=== PATIENT | female | born 1970 | race African-American/Black ===

== ENCOUNTER 2016-02-20 22:39 | Inpatient (IN) | payer BC, OTHER ==
[~2016-02-20] VITALS: Ht 162.6 cm; Wt 111.4 kg
--- NOTE | ~2016-02-20 | HC ---
[facility] [place] [address] CONSULTATION Name: KAR LOWRY Room #: 248-P [facility] IN M.R.#: [id number] Admission: 02/21/16 Attend Phys: Jaimee Morris Discharge: Date of : 66 Report #: [id number] THIS REPORT FOR: //name// CC: Jaimee Camejo REASON FOR CONSULTATION: I was asked to evaluate concerning bilateral pulmonary infiltrates and respiratory failure. HISTORY OF PRESENT ILLNESS: The patient is a 45-year-old who was initially evaluated in the end of November where she had respiratory compromise, shortness of breath for about 6 months. Her oxygen requirements had increased. She has persistent nonproductive cough. Cough seemed to worsen when she was in [place] for vacation. She continues on Prograf and Myfortic for her renal transplant. She has had no rejection episodes. She has been on corticosteroids. During the evaluation in the end of November, she underwent CT scan of the chest, bronchoscopy with BAL and serologic workup, all of which was nondiagnostic. I am unclear as to her followup. She did return on February 14 and was hospitalized here for 2 days. She had more shortness of breath and a productive cough that she stated onset about 4 days prior to her admission. At that time, she is on prednisone 10 mg a day along with her Myfortic and Prograf. She was dismissed on cefuroxime and 5 mg of prednisone a day. She was dismissed on February 16, but did not fill her prescription and returns with persistent shortness of breath. She was supposed to be on 10 mg of prednisone and Levaquin. Once seen in the Emergency Room, she was given IV steroids, Levaquin, Lasix and was intubated. ALLERGIES: None known. MEDICATIONS: As noted on her MAR including Solu-Medrol, levofloxacin, Zosyn and vancomycin. PAST MEDICAL HISTORY, FAMILY HISTORY AND SOCIAL HISTORY: Unchanged from her previous consultation noting that in 2009 she was diagnosed with parainfluenza pneumonia. The bronchoscopy performed on November hospitalization was nondiagnostic. No biopsy was performed. REVIEW OF SYSTEMS: There has been no nausea, vomiting, diarrhea, dysuria or frequency. Now has an indwelling Sheth catheter. She is sedated on the ventilator. PHYSICAL EXAMINATION: VITAL SIGNS: Afebrile and hemodynamically stable. GENERAL: She is on propofol. IV site unremarkable. She is on FIO2 of 50%, orally intubated, obese, no rash. LUNGS: Coarse bilaterally. HEART: Regular without murmur. [address] [address] CONSULTATION Name: KAR LOWRY Room #: 248-P [facility] IN ..#: [id number] Admission: 02/21/16 Attend Phys: Jaimee Morris Discharge: Date of : 66 Report #: [id number] ABDOMEN: Obese, soft and nontender. EXTREMITIES: Unremarkable. LABORATORY STUDIES: Sodium 147, potassium 3.8, bicarbonate of 42, creatinine 0.9, glucose 268, AST 12, bilirubin 1, alkaline phosphatase 61, ALT 25, albumin at 2.9. BNP 1809. ____, hemoglobin 9.6, platelet count 163,000. Differential on admission, 89% segs, 1% band, 4% lymphs. Blood and sputum cultures are pending. Chest x-ray shows bilateral pulmonary infiltrates, both interstitial and alveolar. Bilateral effusions also noted. Ultrasound of the lower extremities negative for DVT. IMPRESSION: A 45-year-old immunosuppressed on 3 drugs with prednisone, Myfortic, Prograf. She has bilateral pulmonary infiltrates, which have not improved following my initial workup in November. It is also noted that she had pulmonary hypertension on her last echocardiogram. I have discussed the case with cardiology, pulmonary medicine and nursing. PLAN: Recommend continuing antibiotic coverage. Repeat bronchoscopy and CT scan of the chest. If no diagnosis established, would pursue open lung biopsy. I would also consider Raleigh-Marlee catheter to further assess her pressures. <ELECTRONICALLY SIGNED> By: Devin Gonzales MD 02/22/16 1234 1114 1207 Devin Gonzales MD /nt
--- NOTE | ~2016-02-20 | HC ---
[facility] [place] [address] CONSULTATION Name: KAR LOWRY Room #: 248-P [facility] IN ..#: [id number] Admission: 02/21/16 Attend Phys: Jaimee Morris Discharge: Date of : 66 Report #: [id number] THIS REPORT FOR: //name// CC: Jaimee Camejo DATE OF SERVICE: 02/21/2016. INDICATION: Shortness of breath. HISTORY OF PRESENT ILLNESS: This is a 45-year-old female presenting with shortness of breath. She was recently hospitalized for similar symptoms. The patient has a history of chronic obstructive pulmonary disease, on chronic oxygen therapy, diabetes mellitus, hypertension and right-sided heart failure. She is normally on 4 liters of oxygen at home. Her previous hospitalizations, she has improved with diuresis. It is unclear why she was not taking Lasix at home. No further history is able to be obtained. PAST MEDICAL HISTORY: Echocardiogram from November reveals hyperdynamic LV systolic function, LVH and pulmonary hypertension, history of kidney transplant in 2006, on long-term immunosuppression. Pulmonary disease including bronchitis/asthma. Diabetes mellitus, morbid obesity and chronic edema. ALLERGIES: None. MEDICATIONS: At home included aspirin, Prograf mg daily, Coreg 6.25 mg twice a day, losartan 100 mg a night, Myfortic, supposed to be on Lasix 40 mg daily. SOCIAL HISTORY: Negative for tobacco use. FAMILY HISTORY: Unknown. REVIEW OF SYSTEMS: Unobtainable. PHYSICAL EXAMINATION: VITAL SIGNS: Blood pressure is 160/80, heart rate is 75 beats per minute. GENERAL APPEARANCE: Obese female, intubated, dated. HEAD AND EYES: Normocephalic. Sclerae are anicteric. NECK: No JVD. LUNGS: Diminished breath sounds at the bases. CARDIAC: Distant heart sounds, S1, S2 positive. ABDOMEN: Protuberant, soft. EXTREMITIES: No major joint deformities, 2-3+ bilateral lower extremity edema. ECG reveals sinus rhythm, no acute ST segment changes. [facility] [address] [place] [address] CONSULTATION Name: KAR LOWRY Room #: 248-[facility] IN M.R.#: [id number] Admission: 02/21/16 Attend Phys: Alfonzomarci José Miguel Alejandrinarich Discharge: Date of : 66 Report #: [id number] LABORATORY VALUES: White cell count is 12.5, hemoglobin is 9.6. Sodium is 147, BUN is 19, creatinine 0.9. ASSESSMENT: 1. Respiratory failure, the etiology is multifactorial. Rule out an infectious process. 2. Congestive heart failure, probable acute on chronic diastolic. Agree with IV Lasix as long as her blood pressure remains stable. 3. Diabetes mellitus, continue with medications. 4. History of renal transplant on long-term immunosuppression. 5. Chronic edema. Thank you for allowing me to participate in the care of your patient. <ELECTRONICALLY SIGNED> By: Rodolfo Katz MD 02/22/16 0838 1108 1142 Rodolfo Katz MD /brian
--- NOTE | ~2016-02-20 | CNG ---
[facility] [place] [address] CYTO-NONGYN REPORT PROCEDURE Name: JAZMYN FRAZIER Room #: 248-P ADM IN M.R.#: [id number] Admission: 02/21/16 Date of : 66 Discharge: Report #: [id number] Path Case #: [id number] CYTOPATHOLOGY REPORT COLLECTION DATE: 02/21/2016 RECEIVED DATE: 02/22/2016 SUBMITTING PHYS: Dr. Devin Gonzales OTHER PHYS: Dr. Jaimee Camejo CLINICAL HISTORY: Respiratory failure. SPECIMEN(S) RECEIVED: A.Bronchoalveolar lavage, NOS * * * * * * * * * * * * FINAL DIAGNOSIS: A. Bronchoalveolar lavage, NOS: - No malignant cells identified. Numerous pulmonary macrophages and scattered acute and chronic inflammatory cells identified. - Properly controlled silver stain is negative for Pneumocystis organisms and fungal organisms. PATHOLOGIST: Nini Pearson M.D. REPORT ELECTRONICALLY SIGNED BY: Nini Pearson M.D. DATE/TIME: 02/23/2016 15:06 * * * * * * * * * * * * GROSS PATHOLOGY: A. Bronchoalveolar lavage, NOS: The specimen is submitted unfixed, labeled "Jazmyn Frazier". Received by the Cytology Department is four mL of clear fluid. One ThinPrep slide was prepared for pap stain. One ThinPrep slide was prepared for silver stain. (clt 02.22.2016) SALES SERVICE EXECUTIVE(S): PAIGE Dorsey(ASCP) INITIAL CPT CODE(S): A; 09972, 75177 Professional services performed by [facility] at [facility] [address], [place] [address] Technical services performed by [facility] at [address] [place] [address], [address], [place] [address]. [facility] [address] [place] [address] CYTO-NONGYN REPORT PROCEDURE Name: JAZMYN FRAZIER Room #: 248-P ADM IN M.R.#: [id number] Admission: 02/21/16 Date of : 66 Discharge: Report #: [id number] Path Case #: [id number] [facility] [address] [place] [address], [address] [place] [address] PHONE: [phone] DIRECTOR: Morgan Malhotra M.D. * * * END OF REPORT * * *
--- NOTE | ~2016-02-20 | HC ---
[facility] [place] [address] CONSULTATION Name: KAR LOWRY Room #: 455-P [facility] IN M.R.#: [id number] Admission: 02/21/16 Attend Phys: Jaimee Morris Discharge: Date of : 66 Report #: [id number] THIS REPORT FOR: //name// CC: Jaimee Camejo REASON FOR CONSULTATION: Post-kidney transplantation. REASON FOR PRESENTATION: Shortness of breath. HISTORY OF PRESENT ILLNESS: The patient was actually just discharged from the hospital back in December, she is well known to me. She is a 45-year-old with past medical history of COPD followed by the pulmonary team as an outpatient. She is status post kidney transplantation 10 years ago. This was a diabetic kidney transplant and she is maintained on Myfortic and Prograf. She has had multiple presentations with the same picture reporting progressive shortness of breath and dyspnea. She is supposed to use CPAP at home. She is also utilizing oxygen 3 liters. I saw her back in December and all the workup was pretty much remarkable. She diuresed very well and responded very well to diuresis. In the past, she has had an extensive workup including bronchoscopies and VATS procedure for a lung biopsy. This was . She presented to the emergency room complaining of shortness of breath. She also reported neck swelling. It does look like that the patient has some history of noncompliance. She was discharged from the facility back on February. She stated that she forgot to take his scripts and requested the refills of his scripts. It is not clear to me why did she stop taking Lasix upon discharge, even though she was supposed to take it. After she presented to the Emergency Room, her pulmonary status deteriorated and she required intubation in the Emergency Room. I evaluated her in the Intensive Care Unit. She is currently intubated and sedated. PAST MEDICAL HISTORY: 1. Status post renal transplantation. 2. Repeated pneumonitis episodes. 3. Hypertension. 4. Obstructive sleep apnea. 5. Right breast biopsy. 6. Multiple bronchoscopies. 7. Lung biopsy. 8. Diabetes mellitus. 9. Laparoscopic cholecystectomy. 10. Left AV fistula. SOCIAL HISTORY: No drug or alcohol abuse ALLERGIES: No known drug allergies. [address] [address] CONSULTATION Name: KAR LOWRY Room #: 455-P [facility] IN ..#: [id number] Admission: 02/21/16 Attend Phys: Jaimee Morris Discharge: Date of : 66 Report #: [id number] FAMILY HISTORY: Per the chart significant for hypertension and diabetes mellitus. REVIEW OF SYSTEMS: Unobtainable. The patient is currently intubated and there are no family members available. MEDICATIONS: Currently the patient is maintained on metformin, glipizide, prednisone, tacrolimus, carvedilol, losartan, mycophenolate, and aspirin. Lasix was not listed and on her active medications it was listed as discontinued medications. PHYSICAL EXAMINATION: GENERAL: The patient is currently intubated on Propofol. VITAL SIGNS: Blood pressure is marginal at 96/65. HEAD AND NECK: No jugular venous distention. ET tube in place. CHEST: Crackles bilaterally. CARDIOVASCULAR: No rub detected, distant S1 and S2. ABDOMEN: Soft, nontender. LOWER EXTREMITIES: A +2 edema. LABORATORY VALUES: Reviewed. White blood cell count is down to 12.5 from 15.2. Hemoglobin 9.6. ABGs from yesterday reviewed. Her pCO2 from this morning is down to 77 from 82. She did have an acute respiratory failure due to CO2 narcosis. UA was reviewed. Chest x-ray was also reviewed. Her chest x-ray was consistent with bilateral interstitial alveolar infiltrate. This is not different from her previous chest x-rays. DVT was negative. ASSESSMENT, IMPRESSION, PLAN: 1. Acute respiratory failure, recurrent. 2. Chronic bilateral pulmonary infiltrate with previous nonrevealing workup. 3. Status post kidney transplantation. 4. Diabetes mellitus. 5. Hypertension. 6. Obstructive sleep apnea with noncompliance. 7. From the renal perspective, the patient's creatinine was on the normal side as of yesterday. We will recheck the patient's kidney function in the next couple of days. 8. Blood pressure control. 9. Diabetic control. 10. Resume her home medications. 11. Current issues being addressed by the pulmonary team. 12. IV steroids. [address] [address] CONSULTATION Name: ALENKAR Kash Room #: 455-P [facility] IN M.R.#: [id number] Admission: 02/21/16 Attend Phys: Jaimee Morris Discharge: Date of : 66 Report #: [id number] 13. Antibiotics. 14. Increased the dose of the Lasix to twice a day. The patient had previously responded very well to diuresis in the past. I suspect that there is a major noncompliance issues given her CO2 finding on presentation. It does look like that the patient will need diuresis even upon discharge. I am a little concerned about her blood pressure being on the low side and I will ask the nurses to back off the Propofol and hold some of her blood pressure medications if she continues to have low blood pressure issues. As I have stated in the above notes that the patient had extensive workup in the past including a lung biopsy and all of that was unrevealing. <ELECTRONICALLY SIGNED> By: Freddy Duffy MD 03/03/16 0925 0959 1050 Freddy Duffy MD /nt
--- NOTE | ~2016-02-20 | O ---
[facility] [place] [address] OPERATIVE REPORT Name: KAR LOWRY Room #: 248-P [facility] IN M.R.#: [id number] Admission: 02/21/16 Attend Phys: Jaimee Morris Discharge: Date of : 66 Report #: [id number] THIS REPORT FOR: //name// CC: Jaimee Camejo DATE OF SERVICE: 02/24/2016 PREOPERATIVE DIAGNOSIS: Bilateral pulmonary infiltrates. POSTOPERATIVE DIAGNOSIS: Bilateral pulmonary infiltrates. PROCEDURE: Bronchoscopy and left video-assisted thoracoscopy with wedge resection x 2. SURGEON: Sharan Buck M.D. MATERIALS SPECIALIST: Eron. ANESTHESIA: General. INDICATIONS: The patient is a 45-year-old seen for Dr. Way and Dr. Gonzales. The patient is a renal transplant patient who has bilateral pulmonary infiltrates of unclear origin. The patient is on a mechanical ventilator and without a specific diagnosis, focus treatment could not be chosen. FINDINGS AND TECHNIQUE: After general anesthesia was established, a bronchial jumana was placed under bronchoscopic guidance. No endobronchial lesions were noted at this time, although there were some thick secretions and inflammatory changes in the airway. The patient was positioned with left side up. Exposure was obtained through typical video-assisted thoracoscopy ports. Wedge resection was taken of lingular region in the upper lobe and at the basilar segment of the lower lobe and these were submitted for culture and pathology. Pathology came to the room to inspect the specimens. Hemostasis was ascertained. A chest tube was brought through a separate stab wound and then the chest ports were closed in layers while the lowest port was used for placement of the chest tube. The patient tolerated the procedure well [facility] [address] [place] [address] OPERATIVE REPORT Name: KAR LOWRY Kash Room #: 248-P [facility] IN .R.#: [id number] Admission: 02/21/16 Attend Phys: Jaimee Morris Discharge: Date of : 66 Report #: [id number] and was taken back to the intensive care unit in the same condition in which she came to the operating room. <ELECTRONICALLY SIGNED> By: Sharan Buck MD 02/27/16 1024 1040 1102 Sharan Buck MD /nt
--- NOTE | ~2016-02-20 | S ---
[facility] [place] [address] SURGICAL PATH RPT PROCEDURE Name: JAZMYN FRAZIER Room #: 455-P [facility] IN M.R.#: [id number] Admission: 02/21/16 Date of : 66 Discharge: 03/07/16 Report #: [id number] Path Case #: [id number] PATHOLOGY REPORT COLLECTION DATE: 02/24/2016 RECEIVED DATE: 02/24/2016 SUBMITTING PHYS: Dr. Sharan Buck OTHER PHYS: Dr. Xuan Morris ADDENDUM REPORT (Order Date: 03/20/2016 08:31) ADDENDUM DIAGNOSIS: Please see next page for scanned image of the addendum report submitted by senior market intelligence consultant pathologist, Davon Don (IUV:sil; d/t: 03/20/2016) ADDENDUM COMMENT: ELECTRONICALLY SIGNED BY: Nini Pearson M.D. DATE/TIME:03/21/2016 15:28 ADDENDUM REPORT (Order Date: 03/01/2016 00:00) ADDENDUM DIAGNOSIS: Please see next page for scanned image of report submitted by [facility] senior market intelligence consultant pathologist, Davon Don. The case was discussed with Dr. Devin Gonzales by Dr. Ed Hayes on 03/02/16 at approximately 6:[address] Sacha [address] by Dr. Nini Pearson on 03/03/16 at 10:00 AM. Clinical correlation is required. (CLW:sil; d/t: 03/03/2016) ADDENDUM COMMENT: ELECTRONICALLY SIGNED BY: Nini Pearson M.D. DATE/TIME:03/03/2016 10:03 SPECIMEN(S) RECEIVED: A.Wedge biopsy left lung upper lobe B.Wedge biopsy left lung lower lobe * * * * * * * * * * * * FINAL DIAGNOSIS: A. Lung, left lung upper lobe, wedge biopsy: - Fibrinous alveolar exudates with rare fibrin thrombi along with hemosiderin laden macrophages, as well as congestion. - Negative for vasculitis, viral inclusions, granulomas and malignancy. B. Lung, left lung lower lobe, wedge biopsy: - Fibrinous alveolar exudates with rare fibrin thrombi along with hemosiderin laden macrophages, as well as congestion. - Negative for vasculitis, viral inclusions, granulomas and [address] [address] SURGICAL PATH RPT PROCEDURE Name: JAZMYN FRAZIER Kash Room #: 455-P [facility] IN M.R.#: [id number] Admission: 02/21/16 Date of : 66 Discharge: 03/07/16 Report #: [id number] Path Case #: [id number] malignancy. COMMENT: Examination shows a patchy involvement of both samples obtained from the upper lobe as well as the lower lobe. In addition to hemorrhage, as well as the alveolar space of cells by hemosiderin laden macrophages, there are fibrinous exudates and rare fibrin thrombi. There are no classic findings to suggest diffuse alveolar damage or acute lung injury. There are no viral inclusions present. Granulomata are not identified as well. The bronchioles show focal mild acute and chronic inflammation. The vessels are devoid of any inflammation. Acid fast bacillus and Gomori methenamine silver stains performed on block A2 are negative for mycobacterial as well as fungal elements, respectively. Co-review: Dr. Nini Pearson The case is sent to [facility], [place], [place] for an expert opinion at the request of Dr. Sacha Way. (IUV:mgr; d/t: 02/25/16) PATHOLOGIST: Concha Valentine M.D. REPORT ELECTRONICALLY SIGNED BY: Concha Valentine M.D. DATE/TIME: 02/28/2016 13:40 * * * * * * * * * * * * GROSS PATHOLOGY: A. The specimen is received in formalin, labeled "Donny Fraziera and wedge biopsy left lung upper lobe." Received is a 4.2 x 3.5 x 1.5 cm irregular portion of lung with a stapled margin of resection. The pleural surface is intact, red-pink, wrinkled, and displays anthracotic pigmentation. The celena are removed and the resection margin is inked black. The specimen is sectioned to reveal bright red and spongy parenchyma. No masses or lesions are grossly identified. Family Support Coordinator sections are submitted cassettes A1-A3. B. The specimen is received in formalin, labeled "Freddie Jazmyn and wedge biopsy left lung lower lobe." Received is a 4.4 x 4.0 x 0.8 cm wedge resection of lung with a stapled margin of resection. The pleural surface is intact, red-pink, wrinkled, and displays anthracotic pigmentation. The celena are removed and the resection margin is inked black. The specimen is sectioned to reveal bright red and spongy parenchyma. No masses or lesions are grossly identified. Family Support Coordinator sections are submitted cassettes B1-B3. (TTL; 02/24/2016) CLINICAL HISTORY: Status post kidney transplant several years ago. Prior lung biopsy [address] [address] SURGICAL PATH RPT PROCEDURE Name: JAZMYN FRAZIER Room #: 455-P [facility] IN .R.#: [id number] Admission: 02/21/16 Date of : 66 Discharge: 03/07/16 Report #: [id number] Path Case #: [id number] diagnosed as organizing pneumonia and treated with steroid. Recent influenza infection and exacerbation now with ground glass infiltrates. Pneumonia, respiratory failure INITIAL CPT CODE(S): A; 34136, 41154, 37740 B; 27308 Professional services performed by [facility] [employer] [facility] at [place] [address], [place] [address] Technical services performed by [facility] [employer] at [address] [place] [address], [address], [place] [address]. [facility] [address] [place] [address] PHONE: [phone] DIRECTOR: Morgan Malhotra M.D. * * * END OF REPORT * * *
--- NOTE | ~2016-02-20 | CNG ---
[facility] [place] [address] CYTO-NONGYN REPORT PROCEDURE Name: JAZMYN FRAZIER Room #: 248-P ADM IN M.R.#: [id number] Admission: 02/21/16 Date of : 66 Discharge: Report #: [id number] Path Case #: [id number] CYTOPATHOLOGY REPORT COLLECTION DATE: 02/21/2016 RECEIVED DATE: 02/24/2016 SUBMITTING PHYS: Dr. Jaimee Morris OTHER PHYS: Dr. Devin Gonzales CLINICAL HISTORY: See also [id number]. SPECIMEN(S) RECEIVED: A.Bronchial wash * * * * * * * * * * * * FINAL DIAGNOSIS: A. Bronchial wash: - No malignant cells identified. - Numerous pulmonary hemosiderin-laden macrophages are identified amongst fungal spores. - Properly controlled silver stain is negative for Pneumocystis organisms. - PROPERLY CONTROLLED SILVER STAIN IS POSITIVE FOR FUNGAL YEAST ORGANISMS. PATHOLOGIST: Concha Valentine M.D. REPORT ELECTRONICALLY SIGNED BY: Concha Valentine M.D. DATE/TIME: 02/25/2016 15:15 * * * * * * * * * * * * GROSS PATHOLOGY: A. Bronchial wash: The specimen is submitted unfixed, labeled "Jazmyn Frazier". Received by the Cytology Department is 20 mL of pink fluid. One ThinPrep slide was prepared for pap stain and one ThinPrep slide prepared for silver stain. (kg 02/24/16) FILTER TANK TENDER(S): Amee Douglass, PAIGE[facility] INITIAL CPT CODE(S): A; 04616, 21257 Professional services performed by [facility] at [facility] [address], [place] [address] Technical services performed by [facility] at [address] [place] [address], [address], [place] [address]. [facility] [address] [place] [address] CYTO-NONGYN REPORT PROCEDURE Name: JAZMYN FRAZIER Kash Room #: 248-P ADM IN M.R.#: [id number] Admission: 02/21/16 Date of : 66 Discharge: Report #: [id number] Path Case #: [id number] [facility] [address] [place] [address], [address] [place] [address] PHONE: [phone] DIRECTOR: Morgan Malhotra M.D. * * * END OF REPORT * * *
--- NOTE | ~2016-02-20 | HC ---
[facility] [place] [address] CONSULTATION Name: KAR LOWRY Room #: 455-P [facility] IN M.R.#: [id number] Admission: 02/21/16 Attend Phys: Jaimee Morris Discharge: Date of : 66 Report #: [id number] THIS REPORT FOR: //name// CC: Devin Collazo MD DATE OF SERVICE: 02/21/2016 REFERRING PROVIDER: Jaimee Morris MD REASON FOR CONSULTATION: Respiratory failure and pulmonary infiltrate. CHIEF COMPLAINT: Shortness of breath. HISTORY OF PRESENT ILLNESS: Our group was asked to see the patient in consultation while hospitalized at [facility]. The patient is on mechanical ventilatory support and is unable to give any history. History was taken from review of records, discussion with healthcare providers. She was seen in our office previously, followed by Dr. Salazar and Dr. Collazo, most recently for pulmonary infiltrates and pulmonary hypertension. She has undergone surgical lung biopsy in 2009, for persistent pulmonary infiltrates, findings revealing appeared to be organizing pneumonia at that time. She had been doing reasonably well until the last year or so, increasing shortness of breath and having ground glass pulmonary infiltrates as well as worsening pulmonary hypertension, was hospitalized in November, fiberoptic bronchoscopy with bronchial lavage was nondiagnostic; however, bronchial lavage was consistent revealing hemosiderin-laden macrophages. The patient was recently readmitted for 2 days just last week with complaint of shortness of breath and cough, was discharged on Levaquin; however, represented yesterday evening with increasing shortness of breath, subsequently intubated in ICU. I performed fiberoptic bronchoscopy earlier today. The patient does have a history of renal transplant, exact reason for renal transplant is unclear, I am presuming related to diabetes and hypertension, medications; however, if she has some other underlying disorder causing the required renal transplant is unknown to me. She has been on Prograf and Myfortic as well as some intermittent systemic steroids. ALLERGIES: None known. PAST MEDICAL HISTORY: 1. Status post right renal transplant. 2. Hypertension. [facility] [address] [place] [address] CONSULTATION Name: ALENKAR L Room #: 455-P [facility] IN ..#: [id number] Admission: 02/21/16 Attend Phys: Jaimee Morris Discharge: Date of : 66 Report #: [id number] 3. Obstructive sleep apnea. 4. Asthma. PAST SURGICAL HISTORY: Includes: 1. Kidney transplant as mentioned in 2006. 2. Hysterectomy. 3. Cholecystectomy. 4. Right video-assisted thoracoscopy with biopsy in 2009. FAMILY HISTORY: Significant for hypertension in the mother and father. SOCIAL HISTORY: The patient is a never smoker. Unable to take any other further history from the patient. REVIEW OF SYSTEMS: Unobtainable from the patient at this time due to her neurologic status. PHYSICAL EXAMINATION: VITAL SIGNS: Afebrile, pulse 80s, respiratory rate 14-22, and blood pressure 168/72. GENERAL: This is an obese black female, sedated on mechanical ventilator. ENT: Endotracheal tube in place. NECK: Supple. No lymphadenopathy. LUNGS: Diminished, some coarse expiratory rhonchi noted throughout. CARDIOVASCULAR: Heart regular. No murmurs or gallops. ABDOMEN: Soft, nontender, no masses. EXTREMITIES: Warm, 2+ pulses, trace edema. LABORATORY DATA: White blood cell count 12,000, hemoglobin 9.6, hematocrit 31, and platelet count 163. Sodium 147, potassium 3.8, chloride 102, bicarbonate of 42, BUN 19, creatinine 0.9, glucose is 268. Arterial blood gas revealed pH of 7.39, pCO2 of 77, pO2 of 211, bicarbonate 46 on assist control, tidal volume of 500, rate of 14, FIO2 of 80, PEEP of 5. Urinalysis with 2+ proteinuria, no white blood cells seen. Prior serologies for connective tissue disease have been negative. IMPRESSION: 1. Diffuse pulmonary infiltrates, worrisome for opportunistic infection. Bronchoscopy today did reveal thick secretions noted throughout the airways, sent for cultures, cytopathology, as well as cell count and differential. We would defer antimicrobial therapy to infectious disease service. I have been concerned that her ongoing worsening pulmonary hypertension is related to underlying parenchymal lung disease, which is yet to be well defined. We concerned about a drug-induced pneumonitis with some of her chronic medications as well as an autoimmune related process. We would favor repeat surgical biopsy to further evaluate and we would withhold any systemic steroids at this time as [address] [address] CONSULTATION Name: KAR LOWRY Room #: 455-P ADM IN M.R.#: [id number] Admission: 02/21/16 Attend Phys: Jaimee Morris Discharge: Date of : 66 Report #: [id number] I believe the systemic steroids would make interpretation of surgical biopsy difficult. If the patient's status decline, we will have to place her on high dose systemic steroids. 2. Pulmonary hypertension, likely secondary to chronic hypoxemia related to #1 above. We would also consider the possibility of vasculitis despite serology is being negative. 3. History of kidney transplant. 4. Anemia. 5. Respiratory failure, acute hypercapnic and hypoxemic. Recommend continue ventilatory support, hold systemic steroids, antibiotics per infectious disease service, continue with bronchodilators. No systemic steroids at this time. Consider surgical lung biopsy. 6. ICU supportive care. Total critical care time not including bronchoscopic procedure 60 minutes. We will follow along with you. Dr. Salazar to assume care of this patient in a.m. <ELECTRONICALLY SIGNED> By: Sacha Way MD 03/06/16 [address] MD /nt
--- NOTE | ~2016-02-20 | HC ---
[facility] [place] [address] CONSULTATION Name: KAR LOWRY Room #: 248-P [facility] IN ..#: [id number] Admission: 02/21/16 Attend Phys: Jaimee Morris Discharge: Date of : 66 Report #: [id number] THIS REPORT FOR: //name// CC: Jaimee Camejo DATE OF SERVICE: 02/23/2016 We were asked to see the patient by Dr. Way. HISTORY OF PRESENT ILLNESS: The patient is a 45-year-old with diffuse pulmonary infiltrates. The patient was admitted most recently on 02/20 with shortness of breath. The patient had been discharged from the hospital the day before this admission. The patient had been admitted for shortness of breath. At the time of discharge, the patient stated her symptoms were well controlled, but they quickly returned after arriving home. Since admission, the patient has been on a ventilator and sedated and most of this information is gleaned from the chart. We note that the patient has bilateral pulmonary infiltrates and at this point there is diagnostic dilemma and our help has been requested to obtain lung tissue to help with an eventual biopsy. We note that the patient had a video-assisted thoracoscopy in 2009 for similar problem. At that time, pathology revealed organizing pneumonia. The patient had been followed by the [facility] and had been doing well until the last year or so when increasing shortness of breath and ground-glass infiltrates were noted. The patient was hospitalized in November. Fiberoptic bronchoscopy and lavage was nondiagnostic. Bronchial lavage did reveal hemosiderin laden macrophages. As mentioned, the patient had been admitted in the previous week with shortness of breath and was discharged on Levaquin, but was readmitted on 02/20 as mentioned. The patient has a pertinent history of renal transplantation. The patient has diabetes mellitus and hypertension as well. FAMILY HISTORY: Significant for hypertension in mother and father. SOCIAL HISTORY: The patient is a never smoker. As mentioned, all of this is obtainable from the chart. REVIEW OF SYSTEMS: Unobtainable from the patient and can only ____ in the chart already. PHYSICAL EXAMINATION: GENERAL: The patient is lying in bed, on mechanical ventilator, heart rate 74, blood pressure 110/52, O2 sat 100% on 40% FiO2 and respiratory rate 14, sinus [facility] [address] [place] [address] CONSULTATION Name: KAR LOWRY Room #: 248-[facility] IN ..#: [id number] Admission: 02/21/16 Attend Phys: Jaimee Morris Discharge: Date of : 66 Report #: [id number] rhythm. HEENT: No scleral icterus. The patient is sedated with an oral endotracheal tube. NECK: No lymphadenopathy. No bruit. CHEST: Scattered rhonchi. HEART: Rhythm is regular. ABDOMEN: Soft. No mass. No tenderness. EXTREMITIES: A 2+ dorsalis pedis pulses bilaterally. Feet are warm with good perfusion, trace edema. No skin rashes or infections. MUSCULOSKELETAL: No bone or joint deformity or asymmetry. NEUROLOGIC: Not evaluable with the patient being sedated in terms of voluntary motion or sensation. ASSESSMENT AND PLAN: The patient has pulmonary infiltrates of unknown origin. I will discuss video-assisted thoracoscopy with lung biopsy with the mother, who seems to the signing consents and will review risks and details with her options and alternatives as well. <ELECTRONICALLY SIGNED> By: Sharan Buck MD 02/27/16 1024 1725 0100 Sharan Buck MD /nt
--- NOTE | ~2016-02-20 | EKG ---
[place] [address] [facility] [place] [address] ELECTROCARDIOGRAM REPORT Name: KAR LOWRY Room #: 248-P ADM IN M.R.#: [id number] Admission: 02/21/16 Attend Phys: Jaimee Morris Discharge: Date of : 66 Report #: [id number] THIS REPORT FOR: //name// [facility] ED Test Date: 2016-02-20 Test Time: 23:09:54 Pat Name: KAR LOWRY Department: Room: 248 Gender: F Assisted Living Coordinator: MZOOK : 1970 Requested By: Yamel Mcneill Order Number: [id number] MD: Jonah Scruggs Measurements Intervals [place] Rate: 105 P: 11 DE: 113 QRS: 33 QRSD: 94 T: 2 QT: 318 QTc: 421 Interpretive Statements Sinus tachycardia Borderline T abnormalities Baseline wander in lead(s) V1,V2 Compared to ECG 02/15/2016 07:58:30 No significant changes Electronically Signed On 02-22-2016 8:46:10 PROCESS SAFETY SPECIALIST by Jonah Scruggs [email or web address] <ELECTRONICALLY SIGNED> By: Jonah Scruggs MD, [facility] 02/22/16 0846 08 Jonah Scruggs MD, [facility] /EPI
--- NOTE | ~2016-02-20 | 2DMMODE ---
[facility] [place] [address] 2 D/M-MODE ECHOCARDIOGRAM Name: KAR LOWRY Room #: 248-P [facility] IN [facility]#: [id number] Admission: 02/21/16 Attend Phys: Jaimee Tinoco Discharge: Date of : 66 Date of Service: 02/22/16 0832 Report #: [id number] THIS REPORT FOR: //name// Transthoracic Echocardiography Ordering physician: Ronald Corrigan Referring physician: Ronald Corrigan Steven K. Operations Program Manager: SISI Choi Indications/History: COPD, Dyspnea, DM, HTN, CHF. BP: 119 / HR: 90bpm Height: 64in Weight: 258.5lb 60 Study data: M-mode, complete 2D, complete spectral Doppler, and color Doppler. Location: Bedside. Routine. Image quality was adequate. The study was technically limited due to poor acoustic window availability and body habitus. Intravenous contrast (Definity) was administered. 2D measurements Normal Normal LVID ED 39.7mm 36-57 IVS ED 12.8mm 6-11 LVID ES 25.1mm 23-40 LVPW ED 12.8mm 6-11 LA volume 20ml/m2 16-28 AoRoot diam 26mm 21-37 index ED LVOT diameter 20mm 18-23 Findings: Left ventricle: The cavity size was normal. Wall thickness was increased in a pattern of mild LVH. Systolic function was hyperdynamic. The estimated ejection fraction was in the range of 65% to 70%. Wall motion was normal. Right ventricle: The cavity size was normal. Systolic function was normal. Right atrium: The atrium was normal in size. Left atrium: The atrium was normal in size. Volume index: 20ml/m2 (S). Aortic valve: Structurally normal valve. Doppler: There was no stenosis. No regurgitation. [facility] [address] [place] [address] 2 D/M-MODE ECHOCARDIOGRAM Name: KAR LOWRY Room #: 248-P [facility] IN ..#: [id number] Admission: 02/21/16 Attend Phys: Jaimee Tinoco Discharge: Date of : 66 Date of Service: 02/22/16 0832 Report #: [id number] velocity: 253.4cm/s (S). Valve area: 2.1cm2(VTI). Mean gradient: 15.4mm Hg (S). Peak gradient: 25.7mm Hg (S). Mitral valve: Structurally normal valve. Doppler: There was no evidence for stenosis. No regurgitation. Peak E-wave velocity: 131.9cm/s. Peak gradient: 7mm Hg (D). Peak A-wave velocity: 82.5cm/s. Tricuspid valve: Structurally normal valve. Doppler: There was no evidence for stenosis. No regurgitation. Pulmonic valve: Structurally normal valve. Doppler: There was no evidence for stenosis. No regurgitation. Pericardium: There was no pericardial effusion. Aorta: Aortic root: The aortic root was normal in size. Pulmonary artery: Pressure could not be reliably determined due to minimal or absent tricuspid insufficiency jet. Diastolic function: Features are consistent with a pseudonormal left ventricular filling pattern, with concomitant abnormal relaxation and increased filling pressure (grade 2 diastolic dysfunction). Systemic veins: Inferior vena cava: The vessel was dilated; respirophasic changes in dimension were absent. Conclusions 1. Procedure narrative: Image quality was adequate. The study was technically limited due to poor acoustic window availability and body habitus. Intravenous contrast (Definity) was administered. 2. Left ventricle: The cavity size was normal. Wall thickness was increased in a pattern of mild LVH. Systolic function was hyperdynamic. The estimated ejection fraction was in the range of 65% to 70%. Features are consistent with a pseudonormal left ventricular filling pattern, with concomitant abnormal relaxation and increased filling pressure (grade 2 diastolic dysfunction). 3. Right ventricle: The cavity size was normal. 4. Left atrium: The atrium was normal in size. 5. Aortic valve: Structurally normal valve. There was no stenosis. 6. Mitral valve: Structurally normal valve. No regurgitation. 7. Tricuspid valve: Structurally normal valve. [facility] [place] [address] 2 D/M-MODE ECHOCARDIOGRAM Name: KAR LOWRY Room #: 248-P [facility] IN ..#: [id number] Admission: 02/21/16 Attend Phys: Jaimee Tinoco Discharge: Date of : 66 Date of Service: 02/22/16 0832 Report #: [id number] 8. Pericardium, extracardiac: There was no pericardial effusion. <ELECTRONICALLY SIGNED> By: Rodolfo Katz MD 02/22/16 1057 0832 1057 Rodolfo Katz MD /kevin
--- NOTE | ~2016-02-20 | P ---
[facility] [place] [address] PROCEDURE REPORT Name: KAR LOWRY Room #: 455-P [facility] IN M.R.#: [id number] Admission: 02/21/16 Attend Phys: Jaimee Morris Discharge: Date of : 66 Report #: [id number] THIS REPORT FOR: //name// CC: London Camejo DATE OF SERVICE: 02/21/2016 PROCEDURES: Fiberoptic bronchoscopy with bronchial lavage of the lingula and microscopic protected specimen brush of the lingula. INDICATION: Diffuse pulmonary infiltrates, immunocompromised host with recurrent exacerbation and ASA classification class 3. PROCEDURE NOTATION: The patient was sedated on mechanical ventilatory support and we got consent from patient, mother was phoned and given verbal consent. After obtaining informed consent from mother, bronchoscopy equipment was brought to the bedside. Once at the bedside, patient was already on propofol GTT for sedation and only on mechanical ventilatory support and endotracheal tube in place, 10 mL of 1% lidocaine was infused down the endotracheal tube to provide topical anesthesia. Bronchoscope was then passed until the distal trachea was noted. The mainstem, lobar, segmental and subsegmental bronchi were all explored and appeared patent with no significant disease. However, there was some diffuse thick white secretions noted. Protected specimen brush was performed in the lingula from where secretions appeared to be emanating. This was sent for quantitative cultures. Bronchial lavage of 240 mL was then performed in the lingula with 80 mL of return, sent for cytologic and microbiologic test. Patient tolerated well. No noted complications. IMPRESSION: Diffuse pulmonary infiltrates, immunocompromised host, status post bronchoscopy with bronchoalveolar lavage and microscopic brush at the lingula. PLAN: Await microbiologic and cytologic tests. <ELECTRONICALLY SIGNED> By: Sacha Way MD 03/06/16 [address] MD /nt
[~2016-02-20 22:39] MED LIST: ADULT LOW DOSE81 MG PO; APAP/CODEINE ELI5 M1 PO; AVELOX 400 MG400 MG PO; AZITHROMYCIN 2250 MG PO; BACTRIM DS TAB1 EACH PO; BENZONATATE100 MG PO; CEFTIN500 MG PO; CLONIDINE PO; COLACE 100 MG100 MG PO; COLACE100 MG PO; COREG3.125 MG PO; COZAAR 50 MG TA50 M1 PO; DARVOCET-N 1001 EACH PO; DIOVAN PO; DOXYCYCLINE 10100 MG PO; DUONEB 2.5-0.5 M3 ML IH; DUONEB 2.5-0.5 M3 ML INH; FAMOTIDINE 40 M40 M1 PO; FUROSEMIDE 40 M40 M1 PO; GLIPIZIDE ER2.5 MG PO; GLUCOPHAGE1000 MG PO; GLUCOPHAGE500 MG PO; GLUCOTROL5 MG PO; HYDROCODONE-AP1 EAC6 PO; LACTINEX CHEWA1 EACH PO; LASIX 40 MG TAB40 M1 PO; LEVAQUIN 250 M250 MG PO; LEVAQUIN 500 M500 M2 PO; MICARDIS40 MG PO; MOM PO; MUCINEX TA600 MG/TA2 PO; MUCINEX600 MG PO; MYCOPHENOLATE PO; MYFORTIC PO; MYFORTIC180 MG PO; MYFORTIC360 MG PO; NORCO 5-325 TA1 EACH PO; ONDANSETRON HCL4 M2 PO; PEPCID20 MG PO; PERCOCET 5-3251 EACH PO; PERCOCET PO; POTASSIUM20 PO; PREDNISONE 10 M10 M1 PO; PREDNISONE 10 M10 MG PO; PREDNISONE 5 MG5 M1 PO; PREDNISONE10 MG PO; PROAIR HFA8.5 GM INH; PROGRAF1 MG PO; STOOL SOFTENER240 MG PO; TYLENOL325 MG PO; ZOFRAN ODT4 MG PO
[2016-02-20 22:43] VITALS: BP 206/98
[2016-02-20] MEDS ORDERED: COREG6.25 MG PO (22:55)
[2016-02-20 22:57] LABS: HEMOGLOBIN 10.8 gm/dL (12.0-15.0); MCH 27.9 pg (26.0-34.0); PLATELET COUNT 196 thou/uL (150-400); RBC 3.89 mil/uL (4.20-5.00); RDW 15.8 % (10.5-14.5); WBC 15.2 thou/uL (4.0-11.0)
[2016-02-20 23:05] LABS: MANUAL DIFF YES
[2016-02-20 23:14] LABS: ANION GAP < 0 mmol/L (7-16); BUN 17 mg/dL (7-18); CALCIUM 9.6 mg/dL (8.5-10.1); CHLORIDE 104 mmol/L (98-107); CO2 42 mmol/L (21-32); CREATININE 0.9 mg/dL (0.6-1.3); GLUCOSE 190 mg/dL (70-99); SODIUM 144 mmol/L (136-145)
[2016-02-20 23:17] LABS: NT-PRO BRAIN NAT PEPTIDE 1809 pg/mL (<300)
[2016-02-20 23:27] LABS: ABSOLUTE NEUTROPHILS 13.7 thou/uL (1.4-8.2); TOTAL CELL COUNT 100
[2016-02-20 23:55] LABS: ABG SAMPLE TYPE ARTERIAL; BE(vivo) 11.5 mmol/L (-2 to +3); HCO3 40.8 mmol/L (22.0-26.0); LACTATE 0.77 mmol/L (0.5-2.0); O2(CT) 15.3 mL/dL (15.0-23.0); O2Hb 91.4 % (92.0-98.0); PO2 68.6 mmHg (80.0-100.0); sO2 91.1 % (92.0-98.0); tCO2 43.3 mmol/L (24.0-30.0)
[2016-02-20 23:56] LABS: PCO2 82.7 mmHg (35.0-45.0); STICK SITE R.RADIAL; pH 7.311 (7.360-7.450)
[2016-02-21] VITALS (59 sets, daily range): BP systolic 81–174; BP diastolic 44–99
[2016-02-21 01:51] LABS: URINE BILIRUBIN NEGATIVE (Negative); URINE BLOOD TRACE (Negative); URINE COLOR YELLOW; URINE GLUCOSE-RANDOM* NEGATIVE (Negative); URINE KETONES NEGATIVE (Negative); URINE NITRITE NEGATIVE (Negative); URINE PROTEIN (DIPSTICK) 2+ (Negative); URINE SPECIFIC GRAVITY 1.025 (1.003-1.035); URINE UROBILINOGEN 0.2 E.U./dl (0.2-1.0)
[2016-02-21 02:02] LABS: CASTS None Seen /LPF (None Seen); SQUAMOUS 4-10 Moderate /LPF (0-3); URINE RBC 0-2 Rare /HPF (0-2); URINE WBC None Seen /HPF (0-5)
[2016-02-21 02:03] LABS: BACTERIA None Seen /HPF (None Seen); CRYSTALS None Seen /LPF (None Seen)
[2016-02-21 05:13] LABS: ABG SAMPLE TYPE ARTERIAL; BE(vivo) 17.4 mmol/L (-2 to +3); HCO3 45.6 mmol/L (22.0-26.0); LACTATE 1.25 mmol/L (0.5-2.0); O2(CT) 15.7 mL/dL (15.0-23.0); O2Hb 98.3 % (92.0-98.0); PO2 211.2 mmHg (80.0-100.0); pH 7.389 (7.360-7.450); sO2 99.4 % (92.0-98.0)
[2016-02-21 05:14] LABS: PCO2 77.3 mmHg (35.0-45.0); STICK SITE R.RADIAL
[2016-02-21 05:15] LABS: TIDAL VOLUME 500 ml
[2016-02-21 09:44] LABS: HEMATOCRIT 31.2 % (37.0-47.0); HEMOGLOBIN 9.6 gm/dL (12.0-15.0); MCH 27.7 pg (26.0-34.0); MCHC 30.9 % (28.0-37.0); MCV 89.6 fL (80.0-100.0); PLATELET COUNT 163 thou/uL (150-400); RBC 3.48 mil/uL (4.20-5.00); RDW 15.6 % (10.5-14.5); WBC 12.5 thou/uL (4.0-11.0)
[2016-02-21 09:47] LABS: MANUAL DIFF YES
[2016-02-21 09:53] LABS: ALBUMIN 2.9 g/dL (3.4-5.0); CALCIUM 9.1 mg/dL (8.5-10.1); CREATININE 0.9 mg/dL (0.6-1.3); MAGNESIUM 1.2 mg/dL (1.8-2.4); POTASSIUM 3.8 mmol/L (3.5-5.1); TOTAL PROTEIN 6.3 g/dL (6.4-8.2)
[2016-02-21 11:21] LABS: ABSOLUTE NEUTROPHILS 11.9 thou/uL (1.4-8.2); TOTAL CELL COUNT 100
[2016-02-21 11:22] LABS: ANISOCYTOSIS 1+
[2016-02-21 17:45] LABS: ABG SAMPLE TYPE ARTERIAL; BE(vivo) 19.7 mmol/L (-2 to +3); HCO3 45.1 mmol/L (22.0-26.0); LACTATE 1.24 mmol/L (0.5-2.0); O2(CT) 14.6 mL/dL (15.0-23.0); O2Hb 96.8 % (92.0-98.0); PCO2 56.1 mmHg (35.0-45.0); PO2 98.6 mmHg (80.0-100.0); pH 7.523 (7.360-7.450); sO2 97.9 % (92.0-98.0); tCO2 46.8 mmol/L (24.0-30.0)
[2016-02-21 17:47] LABS: ABG COMMENT CMV; STICK SITE R.RADIAL; TIDAL VOLUME 500 ml
[2016-02-22] VITALS (28 sets, daily range): BP systolic 68–149; BP diastolic 35–81
[2016-02-22 05:23] LABS: ABG SAMPLE TYPE ARTERIAL; BE(vivo) 13.1 mmol/L (-2 to +3); HCO3 39.8 mmol/L (22.0-26.0); LACTATE 1.33 mmol/L (0.5-2.0); O2(CT) 15.8 mL/dL (15.0-23.0); O2Hb 96.5 % (92.0-98.0); PCO2 62.4 mmHg (35.0-45.0); PO2 104.2 mmHg (80.0-100.0); pH 7.423 (7.360-7.450); sO2 97.7 % (92.0-98.0); tCO2 41.8 mmol/L (24.0-30.0)
[2016-02-22 05:24] LABS: STICK SITE R.RADIAL; TIDAL VOLUME 500 ml
[2016-02-22 05:46] LABS: HEMATOCRIT 31.6 % (37.0-47.0); MCH 28.8 pg (26.0-34.0); MCHC 31.5 % (28.0-37.0); MCV 91.6 fL (80.0-100.0); PLATELET COUNT 160 thou/uL (150-400); RBC 3.45 mil/uL (4.20-5.00)
[2016-02-22 05:48] LABS: MANUAL DIFF YES
[2016-02-22 06:19] LABS: ALBUMIN 2.5 g/dL (3.4-5.0); CREATININE 1.2 mg/dL (0.6-1.3); MAGNESIUM 1.5 mg/dL (1.8-2.4); PHOSPHORUS 3.5 mg/dL (2.5-4.9); POTASSIUM 3.3 mmol/L (3.5-5.1)
[2016-02-22 07:51] LABS: ABSOLUTE NEUTROPHILS 14.6 thou/uL (1.4-8.2); TOTAL CELL COUNT 100
[2016-02-22 07:52] LABS: ANISOCYTOSIS 2+; HYPOCHROMASIA 1+; MICROCYTES 2+; POLYCHROMASIA SLIGHT
[2016-02-22 07:53] LABS: LARGE PLATELETS FEW
[2016-02-22 15:31] LABS: MAGNESIUM 1.9 mg/dL (1.8-2.4); POTASSIUM 4.1 mmol/L (3.5-5.1)
[2016-02-23] VITALS (25 sets, daily range): BP systolic 97–143; BP diastolic 49–83
[2016-02-23 04:33] LABS: HEMATOCRIT 30.7 % (37.0-47.0); HEMOGLOBIN 9.9 gm/dL (12.0-15.0); MCH 28.6 pg (26.0-34.0); MCHC 32.4 % (28.0-37.0); MCV 88.3 fL (80.0-100.0); PLATELET COUNT 132 thou/uL (150-400); RBC 3.47 mil/uL (4.20-5.00); RDW 15.5 % (10.5-14.5); WBC 9.3 thou/uL (4.0-11.0)
[2016-02-23 04:36] LABS: MANUAL DIFF YES
[2016-02-23 04:38] LABS: CALCIUM 8.8 mg/dL (8.5-10.1); CREATININE 1.1 mg/dL (0.6-1.3); MAGNESIUM 1.8 mg/dL (1.8-2.4)
[2016-02-23 04:40] LABS: POTASSIUM 2.9 mmol/L (3.5-5.1)
[2016-02-23 05:15] LABS: ABG SAMPLE TYPE ARTERIAL; BE(vivo) 16.9 mmol/L (-2 to +3); HCO3 42.4 mmol/L (22.0-26.0); O2(CT) 14.8 mL/dL (15.0-23.0); O2Hb 97.3 % (92.0-98.0); pH 7.497 (7.360-7.450); sO2 98.1 % (92.0-98.0); tCO2 44.1 mmol/L (24.0-30.0)
[2016-02-23 05:19] LABS: STICK SITE R.RADIAL
[2016-02-23 05:20] LABS: TIDAL VOLUME 500 ml
[2016-02-23 05:35] LABS: ABSOLUTE NEUTROPHILS 8.8 thou/uL (1.4-8.2); ANISOCYTOSIS SLIGHT; TOTAL CELL COUNT 100
[2016-02-23 10:49] LABS: MAGNESIUM 2.1 mg/dL (1.8-2.4)
[2016-02-23 10:50] LABS: POTASSIUM 2.9 mmol/L (3.5-5.1)
[2016-02-24] VITALS (9 sets, daily range): BP systolic 117–165; BP diastolic 62–90
[2016-02-24 05:12] LABS: ABG SAMPLE TYPE ARTERIAL; BE(vivo) 11.3 mmol/L (-2 to +3); HCO3 37.9 mmol/L (22.0-26.0); LACTATE 0.88 mmol/L (0.5-2.0); O2(CT) 16.2 mL/dL (15.0-23.0); O2Hb 97.2 % (92.0-98.0); PCO2 59.9 mmHg (35.0-45.0); PO2 110.7 mmHg (80.0-100.0); STICK SITE LRA; pH 7.419 (7.360-7.450); tCO2 39.7 mmol/L (24.0-30.0)
[2016-02-24 05:13] LABS: TIDAL VOLUME 500 ml
[2016-02-24 05:14] LABS: HEMATOCRIT 31.9 % (37.0-47.0); HEMOGLOBIN 9.8 gm/dL (12.0-15.0); MCH 27.7 pg (26.0-34.0); MCHC 30.6 % (28.0-37.0); MCV 90.6 fL (80.0-100.0); PLATELET COUNT 146 thou/uL (150-400); RBC 3.53 mil/uL (4.20-5.00); RDW 15.9 % (10.5-14.5); WBC 11.2 thou/uL (4.0-11.0)
[2016-02-24 05:51] LABS: ALBUMIN 2.3 g/dL (3.4-5.0); CALCIUM 9.1 mg/dL (8.5-10.1); CREATININE 0.9 mg/dL (0.6-1.3); MANUAL DIFF YES; POTASSIUM 3.5 mmol/L (3.5-5.1); TOTAL BILIRUBIN 0.5 mg/dL (<0.1-1.0); TOTAL PROTEIN 5.8 g/dL (6.4-8.2)
[2016-02-24 07:46] LABS: ABSOLUTE NEUTROPHILS 9.5 thou/uL (1.4-8.2); TOTAL CELL COUNT 100
[2016-02-24 07:47] LABS: ANISOCYTOSIS 1+
[2016-02-24 07:48] LABS: HYPOCHROMASIA 1+
[2016-02-24 08:09] LABS: INFLUENZA B Negative (Negative); METAPNEUMOVIRUS Negative (Negative)
[2016-02-24 11:54] LABS: APTT 23.7 Seconds (24.5-32.8); INR 1.2; PROTIME 12.6 Seconds (9.3-11.4)
[2016-02-24 14:10] LABS: LEGIONELLA PCR SOURCE BAL (()); LEGIONELLA PNEUMO PCR RESULT Not Detected (()); LEGIONELLA SPECIES PCR Not Detected (())
[2016-02-25 01:20] LABS: ALBUMIN 2.4 g/dL (3.4-5.0); CALCIUM 8.9 mg/dL (8.5-10.1); CREATININE 0.9 mg/dL (0.6-1.3); MAGNESIUM 1.6 mg/dL (1.8-2.4); POTASSIUM 3.2 mmol/L (3.5-5.1); TOTAL BILIRUBIN 0.6 mg/dL (<0.1-1.0); TOTAL PROTEIN 6.2 g/dL (6.4-8.2)
[2016-02-25 05:02] LABS: ABSOLUTE NEUTROPHILS 10.9 thou/uL (1.4-8.2); BASOPHILS 0.4 % (0.0-2.0); EOSINOPHILS 0.1 % (0.0-3.0); HEMATOCRIT 30.9 % (37.0-47.0); HEMOGLOBIN 9.7 gm/dL (12.0-15.0); LYMPHOCYTES 3.8 % (24.0-44.0); MCH 27.7 pg (26.0-34.0); MCHC 31.3 % (28.0-37.0); MCV 88.5 fL (80.0-100.0); MONOCYTES 8.2 % (1.0-8.0); PLATELET COUNT 147 thou/uL (150-400); POLYS 87.5 % (36.0-66.0); RBC 3.49 mil/uL (4.20-5.00); RDW 15.7 % (10.5-14.5); WBC 12.5 thou/uL (4.0-11.0)
[2016-02-25 05:30] LABS: MANUAL DIFF NO
[2016-02-25 05:41] LABS: ABG SAMPLE TYPE ARTERIAL; BE(vivo) 11.3 mmol/L (-2 to +3); HCO3 37.1 mmol/L (22.0-26.0); LACTATE 1.01 mmol/L (0.5-2.0); O2(CT) 15.4 mL/dL (15.0-23.0); O2Hb 96.8 % (92.0-98.0); PCO2 55.4 mmHg (35.0-45.0); PO2 107.7 mmHg (80.0-100.0); STICK SITE LINE; TIDAL VOLUME 500 ml; pH 7.444 (7.360-7.450); tCO2 38.8 mmol/L (24.0-30.0)
[2016-02-26 05:55] LABS: ANION GAP < 0 mmol/L (7-16); BUN 34 mg/dL (7-18); CALCIUM 9.4 mg/dL (8.5-10.1); CHLORIDE 105 mmol/L (98-107); CO2 44 mmol/L (21-32); CREATININE 0.8 mg/dL (0.6-1.3); GLUCOSE 211 mg/dL (70-99); MAGNESIUM 2.1 mg/dL (1.8-2.4); POTASSIUM 3.9 mmol/L (3.5-5.1); SODIUM 144 mmol/L (136-145)
[2016-02-27] VITALS (8 sets, daily range): BP systolic 128–178; BP diastolic 61–85
[2016-02-27 04:25] LABS: ABG SAMPLE TYPE ARTERIAL; BE(vivo) 14.6 mmol/L (-2 to +3); LACTATE 0.99 mmol/L (0.5-2.0); O2(CT) 15.6 mL/dL (15.0-23.0); O2Hb 97.7 % (92.0-98.0); PO2 114.9 mmHg (80.0-100.0); pH 7.488 (7.360-7.450); sO2 98.4 % (92.0-98.0); tCO2 41.7 mmol/L (24.0-30.0)
[2016-02-27 04:26] LABS: ABG COMMENT A/C RATE 14; STICK SITE LINE; TIDAL VOLUME 500 ml
[2016-02-27 05:08] LABS: HEMATOCRIT 32.4 % (37.0-47.0); HEMOGLOBIN 10.1 gm/dL (12.0-15.0); MCH 27.9 pg (26.0-34.0); MCHC 31.2 % (28.0-37.0); MCV 89.4 fL (80.0-100.0); PLATELET COUNT 174 thou/uL (150-400); RBC 3.63 mil/uL (4.20-5.00); RDW 15.6 % (10.5-14.5); WBC 14.6 thou/uL (4.0-11.0)
[2016-02-27 05:15] LABS: MANUAL DIFF YES
[2016-02-27 05:18] LABS: ALBUMIN 2.4 g/dL (3.4-5.0); CALCIUM 9.8 mg/dL (8.5-10.1); CREATININE 0.8 mg/dL (0.6-1.3); PHOSPHORUS 2.5 mg/dL (2.5-4.9); POTASSIUM 4.1 mmol/L (3.5-5.1)
[2016-02-27 05:40] LABS: ABSOLUTE NEUTROPHILS 13.7 thou/uL (1.4-8.2); METAMYELOCYTES 1 %; MYELOCYTES 1 %; TOTAL CELL COUNT 100
[2016-02-28] VITALS (24 sets, daily range): BP systolic 126–163; BP diastolic 69–88
[2016-02-28 05:26] LABS: HEMATOCRIT 31.8 % (37.0-47.0); HEMOGLOBIN 9.8 gm/dL (12.0-15.0); MCH 27.8 pg (26.0-34.0); MCV 89.7 fL (80.0-100.0); PLATELET COUNT 187 thou/uL (150-400); RBC 3.54 mil/uL (4.20-5.00); RDW 15.3 % (10.5-14.5); WBC 12.7 thou/uL (4.0-11.0)
[2016-02-28 05:32] LABS: ALBUMIN 2.3 g/dL (3.4-5.0); POTASSIUM 4.3 mmol/L (3.5-5.1)
[2016-02-28 06:01] LABS: MANUAL DIFF YES
[2016-02-28 08:22] LABS: ABSOLUTE NEUTROPHILS 12.2 thou/uL (1.4-8.2); TOTAL CELL COUNT 100
[2016-02-29] VITALS (28 sets, daily range): BP systolic 130–176; BP diastolic 68–107
[2016-02-29 04:35] LABS: ABSOLUTE NEUTROPHILS 11.8 thou/uL (1.4-8.2); BASOPHILS 0.2 % (0.0-2.0); HEMOGLOBIN 10.2 gm/dL (12.0-15.0); LYMPHOCYTES 1.5 % (24.0-44.0); MCH 27.9 pg (26.0-34.0); PLATELET COUNT 181 thou/uL (150-400); POLYS 95.3 % (36.0-66.0); RBC 3.66 mil/uL (4.20-5.00); RDW 15.3 % (10.5-14.5); WBC 12.4 thou/uL (4.0-11.0)
[2016-02-29 04:55] LABS: MANUAL DIFF NO
[2016-02-29 05:54] LABS: ABG SAMPLE TYPE ARTERIAL; BE(vivo) 10.5 mmol/L (-2 to +3); HCO3 36.3 mmol/L (22.0-26.0); O2(CT) 15.5 mL/dL (15.0-23.0); O2Hb 97.7 % (92.0-98.0); PCO2 55.1 mmHg (35.0-45.0); PO2 135.1 mmHg (80.0-100.0); pH 7.437 (7.360-7.450); sO2 98.7 % (92.0-98.0)
[2016-02-29 05:55] LABS: FIO2 40 %; STICK SITE L.RADIAL; TIDAL VOLUME 500 ml
[2016-02-29 15:38] LABS: ABG SAMPLE TYPE ARTERIAL; BE(vivo) 9.3 mmol/L (-2 to +3); LACTATE 1.48 mmol/L (0.5-2.0); O2Hb 97.4 % (92.0-98.0); PCO2 60.1 mmHg (35.0-45.0); PO2 128.1 mmHg (80.0-100.0); pH 7.395 (7.360-7.450); sO2 98.5 % (92.0-98.0); tCO2 37.8 mmol/L (24.0-30.0)
[2016-02-29 15:39] LABS: STICK SITE R.BRACHIAL
[2016-02-29 15:40] LABS: ABG COMMENT CPAP TRIAL.; Pressure Support 8 cm H20
[2016-02-29 16:18] LABS: ALBUMIN 2.4 g/dL (3.4-5.0); CALCIUM 10.2 mg/dL (8.5-10.1); PHOSPHORUS 4.1 mg/dL (2.5-4.9); POTASSIUM 4.5 mmol/L (3.5-5.1)
[2016-03-01] VITALS (38 sets, daily range): BP systolic 114–166; BP diastolic 55–91
[2016-03-01 05:13] LABS: ABSOLUTE NEUTROPHILS 12.3 thou/uL (1.4-8.2); BASOPHILS 0.2 % (0.0-2.0); HEMOGLOBIN 10.2 gm/dL (12.0-15.0); MCH 27.7 pg (26.0-34.0); MCV 89.3 fL (80.0-100.0); MONOCYTES 3.1 % (1.0-8.0); PLATELET COUNT 182 thou/uL (150-400); POLYS 95.7 % (36.0-66.0); RDW 15.4 % (10.5-14.5); WBC 12.9 thou/uL (4.0-11.0)
[2016-03-01 05:16] LABS: MANUAL DIFF NO
[2016-03-01 05:28] LABS: ALBUMIN 2.3 g/dL (3.4-5.0); CREATININE 0.8 mg/dL (0.6-1.3); POTASSIUM 4.7 mmol/L (3.5-5.1)
[2016-03-01 05:35] LABS: ABG SAMPLE TYPE ARTERIAL; BE(vivo) 13.2 mmol/L (-2 to +3); HCO3 39.8 mmol/L (22.0-26.0); LACTATE 1.29 mmol/L (0.5-2.0); O2(CT) 14.6 mL/dL (15.0-23.0); O2Hb 93.2 % (92.0-98.0); PCO2 62.4 mmHg (35.0-45.0); PO2 74.5 mmHg (80.0-100.0); pH 7.423 (7.360-7.450); sO2 94.8 % (92.0-98.0); tCO2 41.8 mmol/L (24.0-30.0)
[2016-03-01 05:36] LABS: STICK SITE R.BRACHIAL
[2016-03-01 05:37] LABS: Face Shield 40 %
[2016-03-01 11:10] LABS: HEMATOCRIT 33.8 % (37.0-47.0); HEMOGLOBIN 10.5 gm/dL (12.0-15.0); MCH 27.8 pg (26.0-34.0); MCHC 31.2 % (28.0-37.0); MCV 89.3 fL (80.0-100.0); RBC 3.79 mil/uL (4.20-5.00); RDW 15.6 % (10.5-14.5); WBC 11.3 thou/uL (4.0-11.0)
[2016-03-01 11:30] LABS: ALBUMIN 2.5 g/dL (3.4-5.0); ANION GAP < 1 mmol/L (7-16); BUN 59 mg/dL (7-18); CALCIUM 10.2 mg/dL (8.5-10.1); CHLORIDE 106 mmol/L (98-107); CO2 44 mmol/L (21-32); CREATININE 0.9 mg/dL (0.6-1.3); GLUCOSE 238 mg/dL (70-99); PHOSPHORUS 4.4 mg/dL (2.5-4.9); POTASSIUM 4.4 mmol/L (3.5-5.1); SODIUM 149 mmol/L (136-145)
[2016-03-02] VITALS (17 sets, daily range): BP systolic 118–148; BP diastolic 63–95
[2016-03-02 05:35] LABS: HEMATOCRIT 33.5 % (37.0-47.0); HEMOGLOBIN 10.3 gm/dL (12.0-15.0); MCH 27.8 pg (26.0-34.0); MCHC 30.8 % (28.0-37.0); MCV 90.2 fL (80.0-100.0); PLATELET COUNT 171 thou/uL (150-400); RBC 3.71 mil/uL (4.20-5.00); RDW 15.3 % (10.5-14.5); WBC 11.5 thou/uL (4.0-11.0)
[2016-03-02 05:36] LABS: MANUAL DIFF YES
[2016-03-02 05:37] LABS: ANION GAP < 0 mmol/L (7-16); BUN 55 mg/dL (7-18); CALCIUM 10.6 mg/dL (8.5-10.1); CHLORIDE 106 mmol/L (98-107); CO2 42 mmol/L (21-32); CREATININE 0.9 mg/dL (0.6-1.3); GLUCOSE 204 mg/dL (70-99); POTASSIUM 4.8 mmol/L (3.5-5.1); SODIUM 146 mmol/L (136-145)
[2016-03-02 08:00] LABS: ABSOLUTE NEUTROPHILS 10.9 thou/uL (1.4-8.2); ANISOCYTOSIS 1+; TOTAL CELL COUNT 100
[2016-03-03 04:42] LABS: HEMATOCRIT 34.6 % (37.0-47.0); HEMOGLOBIN 10.7 gm/dL (12.0-15.0); MCH 27.9 pg (26.0-34.0); MCHC 31.1 % (28.0-37.0); MCV 89.9 fL (80.0-100.0); PLATELET COUNT 174 thou/uL (150-400); RBC 3.85 mil/uL (4.20-5.00); RDW 15.1 % (10.5-14.5); WBC 15.2 thou/uL (4.0-11.0)
[2016-03-03 04:43] LABS: MANUAL DIFF YES
[2016-03-03 05:03] LABS: ALBUMIN 2.3 g/dL (3.4-5.0); CALCIUM 10.5 mg/dL (8.5-10.1); MAGNESIUM 2.1 mg/dL (1.8-2.4); PHOSPHORUS 3.8 mg/dL (2.5-4.9); POTASSIUM 4.6 mmol/L (3.5-5.1)
[2016-03-03 06:22] LABS: ABSOLUTE NEUTROPHILS 14.9 thou/uL (1.4-8.2); ANISOCYTOSIS SLIGHT; TOTAL CELL COUNT 100
[2016-03-03 06:23] VITALS: BP 145/78
[2016-03-03 08:38] VITALS: BP 145/76
[2016-03-03 11:53] VITALS: BP 118/72
[2016-03-03 15:42] VITALS: BP 120/68
[2016-03-03 20:59] VITALS: BP 131/70
[2016-03-04 04:17] VITALS: BP 128/71
[2016-03-04 05:19] LABS: HEMATOCRIT 34.5 % (37.0-47.0); HEMOGLOBIN 10.8 gm/dL (12.0-15.0); MCH 27.9 pg (26.0-34.0); MCHC 31.4 % (28.0-37.0); MCV 88.7 fL (80.0-100.0); PLATELET COUNT 161 thou/uL (150-400); RBC 3.89 mil/uL (4.20-5.00); RDW 14.9 % (10.5-14.5); WBC 13.8 thou/uL (4.0-11.0)
[2016-03-04 05:27] LABS: MANUAL DIFF YES
[2016-03-04 05:42] LABS: CALCIUM 10.6 mg/dL (8.5-10.1); POTASSIUM 4.1 mmol/L (3.5-5.1)
[2016-03-04 08:00] VITALS: BP 132/76
[2016-03-04 08:43] LABS: ABSOLUTE NEUTROPHILS 13.5 thou/uL (1.4-8.2); HYPOCHROMASIA 1+; TOTAL CELL COUNT 100
[2016-03-04 08:44] LABS: ANISOCYTOSIS SLIGHT
[2016-03-04 12:00] VITALS: BP 124/78
[2016-03-04 16:15] VITALS: BP 142/74
[2016-03-04 20:09] VITALS: BP 134/55
[2016-03-05 03:41] VITALS: BP 144/73
[2016-03-05 04:53] LABS: HEMOGLOBIN 10.6 gm/dL (12.0-15.0); MCH 27.7 pg (26.0-34.0); MCHC 31.3 % (28.0-37.0); MCV 88.5 fL (80.0-100.0); PLATELET COUNT 153 thou/uL (150-400); RBC 3.84 mil/uL (4.20-5.00); RDW 14.9 % (10.5-14.5); WBC 15.9 thou/uL (4.0-11.0)
[2016-03-05 05:03] LABS: ANION GAP < 0 mmol/L (7-16); BUN 76 mg/dL (7-18); CALCIUM 10.3 mg/dL (8.5-10.1); CHLORIDE 102 mmol/L (98-107); CO2 44 mmol/L (21-32); CREATININE 1.1 mg/dL (0.6-1.3); GLUCOSE 133 mg/dL (70-99); SODIUM 145 mmol/L (136-145)
[2016-03-05 05:09] LABS: MANUAL DIFF YES
[2016-03-05 07:52] LABS: ABSOLUTE NEUTROPHILS 15.6 thou/uL (1.4-8.2); TOTAL CELL COUNT 100
[2016-03-05 08:00] VITALS: BP 133/69
[2016-03-05 20:00] VITALS: BP 130/61
[2016-03-06 04:00] VITALS: BP 119/64
[2016-03-06 07:18] LABS: ALBUMIN 2.3 g/dL (3.4-5.0); CALCIUM 9.7 mg/dL (8.5-10.1); CREATININE 0.9 mg/dL (0.6-1.3); PHOSPHORUS 3.5 mg/dL (2.5-4.9); POTASSIUM 3.8 mmol/L (3.5-5.1)
[2016-03-06 08:00] VITALS: BP 140/63
[2016-03-06 16:00] VITALS: BP 126/72
[2016-03-06] MEDS ORDERED: TYLENOL325 MG PO (17:24)
[2016-03-06] MEDS ORDERED: CELLCEPT 250 M250 M1 PO ×2 (17:24)
[2016-03-06] MEDS ORDERED: PREDNISONE 10 M10 M1 PO (17:24)
[2016-03-06] MEDS ORDERED: PULMICORT0.5 MG/21 INH (17:24)
[2016-03-06] MEDS ORDERED: LANTUS100 UNIT/M SUBQ (17:24)
[2016-03-06] MEDS ORDERED: DUONEB 2.5-0.5 M3 ML INH ×2 (17:24)
[2016-03-06] MEDS ORDERED: HUMALOG100 UNIT/1 SUBQ ×2 (17:24→17:32)
[2016-03-06] MEDS ORDERED: DEMADEX20 MG PO (17:24)
[2016-03-06] MEDS ORDERED: HYDRALAZINE20 MG/M1 IV PUSH (17:24)
[2016-03-06] MEDS ORDERED: GLUCAGEN1 MG IM (17:24)
[2016-03-06] MEDS ORDERED: GLUCOSE4 GM PO (17:32)
[2016-03-06 20:31] VITALS: BP 130/65
[2016-03-07 04:21] VITALS: BP 116/56
[2016-03-07 06:43] LABS: ALBUMIN 2.3 g/dL (3.4-5.0); CALCIUM 9.9 mg/dL (8.5-10.1); POTASSIUM 3.9 mmol/L (3.5-5.1)
[2016-03-07] MEDS ORDERED: ENOXAPARIN40 MG/0.1 SUBQ (16:19)
[2016-03-07] MEDS ORDERED: COREG6.25 MG PO (16:19)
[2016-03-28] MEDS ORDERED: PREDNISONE 20 M20 M1 PO (10:42)
[2016-03-28] MEDS ORDERED: BACTRIM DS TAB1 EACH PO (10:42)
[2016-03-28] MEDS ORDERED: NYSTATIN 1100000 U/M SW&SWALLOW (10:42)
[2016-03-28] MEDS ORDERED: COREG6.25 MG PO (10:42)
[2016-03-28] MEDS ORDERED: PULMICORT0.5 MG/21 INH (10:42)
[2016-03-28] MEDS ORDERED: DUONEB 2.5-0.5 M3 ML INH (10:42)
[2016-03-28] MEDS ORDERED: LANTUSSOLASTAR SUBQ (10:42)
[2016-04-24] MEDS ORDERED: TUSSIONEX PENN473 ML PO (23:23)
[2016-04-24] MEDS ORDERED: PREDNISONE 20 M20 MG PO (23:23)
== END 2016-03-07 17:07 | DRG 163 ==
LOC: ER 22:39 → ICU 02-21 00:49 → EROBS 02-21 00:49 → ICU 02-21 03:42 → 4W 03-03 06:22
PROVIDERS: Emergency Medicine; Hospitalist; Internal Medicine; Internal Medicine Endocrinology, Diabetes & Metabolism; Internal Medicine Nephrology; Internal Medicine Pulmonary Disease; Nurse Practitioner Acute Care; Specialist; Surgery Vascular Surgery
PROC: 0BH17EZ Insertion of Endotracheal Airway into Trachea, Via Natural or Artificial Opening (ICD-10-PCS; principal; 2016-02-20)
PROC: 0BBH8ZX Excision of Lung Lingula, Via Natural or Artificial Opening Endoscopic, Diagnostic (ICD-10-PCS; 2016-02-21)
PROC: 0B998ZX Drainage of Lingula Bronchus, Via Natural or Artificial Opening Endoscopic, Diagnostic (ICD-10-PCS; 2016-02-21)
PROC: 5A1955Z Respiratory Ventilation, Greater than 96 Consecutive Hours (ICD-10-PCS; 2016-02-21)
PROC: 05HD33Z Insertion of Infusion Device into Right Cephalic Vein, Percutaneous Approach (ICD-10-PCS; 2016-02-22)
PROC: B54MZZA Ultrasonography of Right Upper Extremity Veins, Guidance (ICD-10-PCS; 2016-02-22)
PROC: 0BTJ4ZZ Resection of Left Lower Lung Lobe, Percutaneous Endoscopic Approach (ICD-10-PCS; 2016-02-24)
PROC: 0BTG4ZZ Resection of Left Upper Lung Lobe, Percutaneous Endoscopic Approach (ICD-10-PCS; 2016-02-24)
PROC: 03HY32Z Insertion of Monitoring Device into Upper Artery, Percutaneous Approach (ICD-10-PCS; 2016-02-24)
DX: J09.X1 Influenza due to identified novel influenza A virus with pneumonia (principal); J96.22 Acute and chronic respiratory failure with hypercapnia; J96.21 Acute and chronic respiratory failure with hypoxia; I50.33 Acute on chronic diastolic (congestive) heart failure; N18.6 End stage renal disease; J44.0 Chronic obstructive pulmonary disease with (acute) lower respiratory infection; J44.1 Chronic obstructive pulmonary disease with (acute) exacerbation; I13.2 Hypertensive heart and chronic kidney disease with heart failure and with stage 5 chronic kidney disease, or end stage renal disease; Z94.0 Kidney transplant status; Z68.41 Body mass index [BMI] 40.0-44.9, adult; E87.0 Hyperosmolality and hypernatremia; J18.9 Pneumonia, unspecified organism; Y95 Nosocomial condition; I28.8 Other diseases of pulmonary vessels; J45.909 Unspecified asthma, uncomplicated; I27.2 Other secondary pulmonary hypertension; G47.33 Obstructive sleep apnea (adult) (pediatric); E66.01 Morbid (severe) obesity due to excess calories; D64.9 Anemia, unspecified; K21.9 Gastro-esophageal reflux disease without esophagitis; M19.90 Unspecified osteoarthritis, unspecified site; E87.6 Hypokalemia; E83.42 Hypomagnesemia; I78.8 Other diseases of capillaries; R53.81 Other malaise; E09.65 Drug or chemical induced diabetes mellitus with hyperglycemia; E09.22 Drug or chemical induced diabetes mellitus with diabetic chronic kidney disease; N05.1 Unspecified nephritic syndrome with focal and segmental glomerular lesions; T38.0X5A Adverse effect of glucocorticoids and synthetic analogues, initial encounter; Z99.81 Dependence on supplemental oxygen; Y92.89 Other specified places as the place of occurrence of the external cause; Z98.890 Other specified postprocedural states; Z90.710 Acquired absence of both cervix and uterus; Z87.01 Personal history of pneumonia (recurrent); Z90.49 Acquired absence of other specified parts of digestive tract; Z82.49 Family history of ischemic heart disease and other diseases of the circulatory system; Z79.899 Other long term (current) drug therapy; Z91.14 Patient's other noncompliance with medication regimen
CPT/HCPCS: 10045; 10078; 27000; 50101; 50290; 50386; 50417; 50455; 50497; 50558; 50740; 51048; 51975; 52189; 52265; 54118; 56462; 56524; 56526; 56531; 62110; 62900; 65020; 65043; 83006

== ENCOUNTER 2016-03-07 13:42 | Inpatient (IN) | payer BC, OTHER ==
[~2016-03-07] VITALS: Ht 162.6 cm; Wt 240.0 kg
--- NOTE | ~2016-03-07 | D ---
[facility] [place] [address] DISCHARGE SUMMARY Name: KAR LOWRY Room #: 506-1 [facility] IN ..#: [id number] Admission: 03/07/16 Attend Phys: Samy Barcenas MD Discharge: 03/10/16 Date of : 66 Report #: [id number] THIS REPORT FOR: //name// CC: Samy Camejo DATE OF SERVICE: 03/10/2016 HOSPITAL COURSE: The patient was admitted to the inpatient rehabilitation vance with medical complexity with generalized debilitation, tsfhy-xz-[id number] hypoxic and hypercapnic respiratory failure with COPD exacerbation. She had prior video-assisted thorascopic surgery. Please see my prior progress note from earlier today. The patient was noted to have worsening mental status with respiratory failure and fever. With her decreased responsiveness and decline in her medical condition, she was emergently transferred off the acute rehab vance and placed on BiPAP. DISCHARGE DIAGNOSES: 1. Medical complexity with generalized debilitation. 2. Ydfuz-sb-jtaaqsa hypoxic and hypercapnic respiratory failure with chronic obstructive pulmonary disease exacerbation. 3. Status post video-assisted thorascopic surgery with wedge biopsy, 02/24/2016. 4. Surgical pathology consistent with capillaritis. 5. Healthcare-associated pneumonia. 6. Influenza A. 7. Immunocompromised state, status post renal transplant, on anti-rejection medications. 8. Guikz-zb-epnwevl diastolic heart failure, for which she was compensated on torsemide. 9. Diabetes mellitus type 2. 10. Hypertension. 11. History of renal transplant. PLAN: The patient was transferred off the acute inpatient rehabilitation vance due to her decline in her medical status. Defer further medication management, activity level, etc. as per the accepting service. <ELECTRONICALLY SIGNED> By: Samy Barcenas MD 03/14/16 1624 1331 1353 Samy Barcenas MD /nt
--- NOTE | ~2016-03-07 | H ---
[facility] [place] [address] HISTORY AND PHYSICAL Name: KAR LOWRY Room #: 506-1 [facility] IN M.R.#: [id number] Admission: 03/07/16 Attend Phys: Samy Barcenas MD Discharge: 03/10/16 Date of : 66 Report #: [id number] THIS REPORT FOR: //name// CC: Samy Camejo HISTORY OF PRESENT ILLNESS: The patient is a 45-year-old -Indonesian female readmitted originally to [facility] with increased shortness of breath and acute on chronic respiratory failure. She was noted to have healthcare-associated pneumonia with bilateral infiltrates. She ended up undergoing bronchoscopy with a left VATS procedure with wedge resection times 2 on 02/23. Surgical pathology was consistent with capillaritis. She was continued on steroids with change to p.o. prednisone. There was consideration for Rituxan. She was noted to have healthcare-associated pneumonia versus chronic infiltrates with influenza A and completed Tamiflu. The patient is immunocompromised status post prior renal transplant and is on anti-rejection medications. She also was treated regarding acute on chronic diastolic heart failure and her diabetes has been closely monitored. She has medical complexity with generalized debilitation and has now been admitted for acute in-hospital inpatient rehabilitation. PAST MEDICAL HISTORY: Includes a renal transplant in 2006, she is on anti-rejection medications. Past history also includes hysterectomy, hypertension, osteoarthritis, COPD, GERD, sleep apnea without CPAP, twq-wuwuntq-decbnsqgo diabetes mellitus, obesity, and prior lap chaitanya. PAST SURGICAL HISTORY: As noted above. HABITS: No history of tobacco or ETOH. FAMILY HISTORY: Heart disease, cancer, and diabetes. MEDICATIONS: Please see the full medication listing. SOCIAL HISTORY: Lives in a house alone, was premorbidly independent, ambulatory without gait aids. There are 4 steps in and 12 inside. She notes that there is a sister in the area that could assist, although the sister does work. The patient's mother is also involved. Primary care physician is Dr. Chivo Camejo. REVIEW OF SYSTEMS: Did not offer any current complaints of chest pain, shortness of breath, or abdominal discomfort. Some mild discomfort from her thoracic incision site. No focal extremity pain complaints. Notes she has been on the chronic oxygen. PHYSICAL EXAMINATION: GENERAL: Pleasant 45-year-old -Indonesian female, in no obvious distress. The [place] [address] HISTORY AND PHYSICAL Name: KAR LOWRY Room #: 506-1 [facility] IN [facility].#: [id number] Admission: 03/07/16 Attend Phys: Samy Barcenas MD Discharge: 03/10/16 Date of : 66 Report #: [id number] VITAL SIGNS: Temperature 98.1, pulse 75, respirations 20, and blood pressure 120/57. HEENT: She has nasal prong O2 in place. Facies are symmetric. She is on nasal prong O2. CHEST: She has the dressing over the thoracic incision site. Diffuse decreased breath sounds. CARDIAC: Sounded regular rate and rhythm. ABDOMEN: Obese, bowel sounds positive, nontender. GENITOURINARY: Deferred. RECTAL: Deferred. EXTREMITIES: She has functional range of motion of both upper extremities with strength grade 4-/5. DTRs are trace to 1. Lower extremities, no focal calf swelling, functional range of motion, strength is a grade 3+ to 4-/5. DTRs are trace to 1. Functionally, she is min assist times 2 sit to stand. She did take several steps with a front-wheeled walker. ASSESSMENT: A 45-year-old -Indonesian female with the following problem list: 1. Medical complexity with generalized debilitation. 2. Acute on chronic hypoxic and hypercapnic respiratory failure with chronic obstructive pulmonary disease exacerbation. 3. Status post video-assisted thoracoscopic surgery with wedge biopsy on 02/24/2016. 4. Surgical pathology consistent with capillaritis. She is on steroids with p.o. prednisone with consideration for Rituxan. 5. Healthcare-associated pneumonia versus chronic infiltrates. 6. Influenza A, completed Tamiflu. 7. Immunocompromised state status post renal transplant, on anti-rejection medications. 8. Acute on chronic diastolic heart failure for which she has been compensated on torsemide. 9. Diabetes mellitus type 2. 10. Hypertension. 11. History of renal transplant. 12. Exogenous obesity. PLAN: The patient is admitted for acute in-hospital inpatient rehabilitation. From a post-admission physician evaluation perspective, there are no relevant changes since the preadmission screening. Please see the above review of prior and current medical and functional conditions and comorbidities. Please see the patient's prior and current functional status. As far as risk of complications, the patient has multiple medical comorbidities as noted above. Initial plan of care involves the interdisciplinary acute inpatient rehabilitation program with the goal of maximizing the patient's functional independence, so that she can hopefully return back to her prior living situation. Measurable functional goals would be for her to become modified independent with transfers and [address] [address] HISTORY AND PHYSICAL Name: KAR LOWRY Room #: 506-1 [facility] IN ..#: [id number] Admission: 03/07/16 Attend Phys: Samy Barcenas MD Discharge: 03/10/16 Date of : 66 Report #: [id number] mobility issues at least at a walker level. Prognosis is reasonably good with estimated length of stay likely at least a couple of weeks depending upon her progress. Potential barriers would include her multiple medical comorbidities and decreased functional status. The patient meets diagnostic criteria for an acute in-hospital inpatient rehabilitation stay. She does have the medical necessity criteria certainly met and has the tolerance for an acute inpatient rehab stay. She also has appropriate discharge goals back to the home setting. <ELECTRONICALLY SIGNED> By: Samy Barcenas MD 03/14/16 1617 1018 1102 Samy Barcenas MD /nt
--- NOTE | ~2016-03-07 | HC ---
[facility] [place] [address] CONSULTATION Name: KAR LOWRY Room #: 506-1 [facility] IN M..#: [id number] Admission: 03/07/16 Attend Phys: Samy Barcenas MD Discharge: 03/10/16 Date of : 66 Report #: [id number] THIS REPORT FOR: //name// CC: Samy Camejo NEUROPSYCHOLOGY CONSULT Admitted to the rehabilitation unit on 03/07/2016. The purpose of the examination is to provide information relevant to finding of a comprehensive neuropsych comprehensive rehabilitation program. HISTORY OF PRESENT ILLNESS: The patient is a 45-year-old -[place]atem[place] female originally admitted to [facility] with increased shortness of breath and acute on chronic respiratory failure. She was noted to have healthcare-associated pneumonia with bilateral infiltrates. She is immunocompromised status post prior renal transplant, is on anti-rejection medications. She was treated regarding acute on chronic diastolic heart failure and she is treated for diabetes. She is considered to have medical complexity with generalized debilitation. PAST MEDICAL HISTORY: Includes renal transplant in 2006, also history of hysterectomy, hypertension, osteoarthritis, COPD, GERD, sleep apnea, non-insulin dependent diabetes mellitus, obesity. The patient lives independently in her own home. When interviewed in her room, she was noted to be somewhat drowsy and spoke very softly. Assessment methods included clinical interview, mini mental status exam 2, consultation with unit staff and review of records. EXAMINATION RESULTS: The patient reported that her mood is generally good, though it has been up and down with her recent illness. She reported that she experiences persistent anxiety on an ongoing basis. 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 She stated she is a high school graduate with some technical school training. When asked how she spends her time, she said she enjoys shopping and television and music. She reports good social support from her mother, aunt, and sister. The mother and aunt were visiting when the patient was approached for the examination. Observed mood was euthymic with indications of anxiety. She also appeared to be very fatigued or to have decreased alertness. On the mini mental status exam, the patient scored below the first percentile with some deficit and orientation (date) and more severe deficits and immediate recall and calculation and attention. SUMMARY: This pleasant but not very alert patient displays indications of mild neurocognitive disorder, unspecified, along with a generalized anxiety disorder. It is recommended that treatment or management of her anxiety symptoms be [facility] [address] [place] [address] CONSULTATION Name: KAR LOWRY Room #: 506-1 [facility] IN [facility].#: [id number] Admission: 03/07/16 Attend Phys: Samy Barcenas MD Discharge: 03/10/16 Date of : 66 Report #: [id number] included in the comprehensive rehabilitation planning. It is also recommended that neuropsychological testing be considered when her medical status improves and stabilizes, to assess the presence or degree of neurocognitive issues. Thank you very much. <ELECTRONICALLY SIGNED> By: Samy Merino, PhD 03/10/16 1138 [id number] 0140 Samy Merino, PhD /nt
--- NOTE | ~2016-03-07 | PLAN ---
[facility] [place] [address] REHAB UNIT PLAN OF CARE Name: KAR LOWRY Room #: 506-1 [facility] IN M.R.#: [id number] Admission: 03/07/16 Attend Phys: Samy Barcenas MD Discharge: 03/10/16 Date of : 66 Report #: [id number] THIS REPORT FOR: //name// CC: Samy Camejo PROGRESS NOTE/OVERALL PLAN OF CARE DATE OF SERVICE: 03/10/2016. HISTORY OF PRESENT ILLNESS: The patient is seen back today in followup. She is in no distress. Last recorded temperature is 98.2, pulse 96, respirations 16, blood pressure 149/60. The patient is sleepy this morning, but will arouse. No focal calf swelling. She was max assist for sit to stand transfers, yesterday she did ambulate mod assist in the parallel bars. Physical therapy noted that she had near miss in the parallel bars with her right knee buckling. The therapy team was able to get her onto the chair. In occupational therapy, upper body dressing was mod assist with lower body dressing, max assist. She is on a regular diet with thin liquids. ASSESSMENT: 1. Medical complex with generalized debilitation. 2. Acute on chronic hypoxic hypercapnic respiratory failure. 3. Status post video-assisted thoracoscopic surgery. 4. Surgical pathology consistent with capillaritis. 5. Healthcare-associated pneumonia versus chronic infiltrates. 6. Immunocompromised state status post renal transplant on anti-rejection medications. 7. Acute on chronic diastolic heart failure. 8. Diabetes mellitus type 2. 9. Hypertension. 10. History of renal transplant. 11. Exogenous obesity. PLAN: The overall plan of care is based on the preadmission screen, post-admission physician evaluation and information garnered from therapy assessments. 1. Estimated length of stay is probably going to be at least 2-3 weeks and, likely longer pending her progress. 2. Medical prognosis is reasonably good. 3. Anticipated interventions includes the interdisciplinary acute inpatient rehabilitation program. 4. Anticipated functional outcomes would be for the patient to become modified independent with transfers, mobility and ADLs, so that she can return back to the home setting. 5. Discharge destination will be back where she lives in her house alone. She does have family in the area. [address] [address] REHAB UNIT PLAN OF CARE Name: KAR LOWRY Room #: 506-1 [facility] IN ..#: [id number] Admission: 03/07/16 Attend Phys: Samy Barcenas MD Discharge: 03/10/16 Date of : 66 Report #: [id number] 6. Expected therapy by discipline includes PT and OT 1 and 1-1/2 hours per day each five days a week throughout the duration of the acute inpatient rehabilitation stay. ADDENDUM: We will be asking physical therapy, check regarding knee braces to try to help, give her some more support. <ELECTRONICALLY SIGNED> By: Samy Barcenas MD 03/14/16 1623 0958 1047 Samy Barcenas MD /brian
[~2016-03-07 13:42] MED LIST changes: +CELLCEPT 250 M250 M1 PO; +COREG6.25 MG PO; +DEMADEX20 MG PO; +GLUCAGEN1 MG IM; +GLUCOSE4 GM PO; +HUMALOG100 UNIT/1 SUBQ; +HYDRALAZINE20 MG/M1 IV PUSH; +LANTUS100 UNIT/M SUBQ; +PULMICORT0.5 MG/21 INH
[2016-03-07] MEDS ORDERED: ENOXAPARIN40 MG/0.1 SUBQ (16:19)
[2016-03-07] MEDS ORDERED: COREG6.25 MG PO (16:19)
[2016-03-07 17:05] VITALS: BP 140/74
[2016-03-08 05:35] VITALS: BP 129/48
[2016-03-08 06:04] LABS: HEMATOCRIT 31.9 % (37.0-47.0); MCH 27.9 pg (26.0-34.0); MCHC 31.3 % (28.0-37.0); MCV 89.3 fL (80.0-100.0); RBC 3.58 mil/uL (4.20-5.00); RDW 15.2 % (10.5-14.5); WBC 15.5 thou/uL (4.0-11.0)
[2016-03-08 06:34] LABS: ALBUMIN 2.3 g/dL (3.4-5.0); BUN 52 mg/dL (7-18); CALCIUM 9.6 mg/dL (8.5-10.1); CHLORIDE 99 mmol/L (98-107); CREATININE 0.9 mg/dL (0.6-1.3); GLUCOSE 198 mg/dL (70-99); PHOSPHORUS 2.7 mg/dL (2.5-4.9); SODIUM 145 mmol/L (136-145)
[2016-03-08 06:39] LABS: CO2 > 45 mmol/L (21-32)
[2016-03-08 09:00] VITALS: BP 120/57
[2016-03-08 16:00] VITALS: BP 134/65
[2016-03-09 03:11] LABS: ALBUMIN 2.2 g/dL (3.4-5.0); BUN 47 mg/dL (7-18); CALCIUM 9.5 mg/dL (8.5-10.1); CHLORIDE 99 mmol/L (98-107); CREATININE 0.8 mg/dL (0.6-1.3); GLUCOSE 168 mg/dL (70-99); PHOSPHORUS 2.5 mg/dL (2.5-4.9); POTASSIUM 3.9 mmol/L (3.5-5.1); SODIUM 146 mmol/L (136-145)
[2016-03-09 06:03] VITALS: BP 140/66
[2016-03-09 08:44] LABS: CO2 > 45 mmol/L (21-32)
[2016-03-09 16:00] VITALS: BP 114/58
[2016-03-10 05:44] VITALS: BP 149/60
[2016-03-10 06:52] LABS: CALCIUM 9.8 mg/dL (8.5-10.1); CREATININE 0.8 mg/dL (0.6-1.3); POTASSIUM 3.5 mmol/L (3.5-5.1)
[2016-03-10 07:45] VITALS: BP 141/87
[2016-03-10 10:05] VITALS: BP 146/75
[2016-03-10 10:17] LABS: ABG SAMPLE TYPE ARTERIAL; BE(vivo) 15.3 mmol/L (-2 to +3); HCO3 41.8 mmol/L (22.0-26.0); O2(CT) 13.1 mL/dL (15.0-23.0); PCO2 62.7 mmHg (35.0-45.0); PO2 55.1 mmHg (80.0-100.0); pH 7.442 (7.360-7.450); sO2 88.8 % (92.0-98.0); tCO2 43.7 mmol/L (24.0-30.0)
[2016-03-10 10:19] LABS: STICK SITE R.RADIAL
[2016-03-28] MEDS ORDERED: DUONEB 2.5-0.5 M3 ML INH (10:42)
[2016-03-28] MEDS ORDERED: NYSTATIN 1100000 U/M SW&SWALLOW (10:42)
[2016-03-28] MEDS ORDERED: LANTUSSOLASTAR SUBQ (10:42)
[2016-03-28] MEDS ORDERED: PREDNISONE 20 M20 M1 PO (10:42)
[2016-03-28] MEDS ORDERED: BACTRIM DS TAB1 EACH PO (10:42)
[2016-03-28] MEDS ORDERED: PULMICORT0.5 MG/21 INH (10:42)
[2016-03-28] MEDS ORDERED: COREG6.25 MG PO (10:42)
[2016-04-24] MEDS ORDERED: PREDNISONE 20 M20 MG PO (23:23)
[2016-04-24] MEDS ORDERED: TUSSIONEX PENN473 ML PO (23:23)
== END 2016-03-10 10:45 | disposition short-term general hospital (02) | DRG 189 ==
PROVIDERS: Hospitalist; Internal Medicine; Physical Medicine & Rehabilitation
PROC: 3E03317 Introduction of Other Thrombolytic into Peripheral Vein, Percutaneous Approach (ICD-10-PCS; 2016-03-07)
PROC: 5A09357 Assistance with Respiratory Ventilation, Less than 24 Consecutive Hours, Continuous Positive Airway Pressure (ICD-10-PCS; principal; 2016-03-10)
DX: J96.21 Acute and chronic respiratory failure with hypoxia (principal); J09.X1 Influenza due to identified novel influenza A virus with pneumonia; J44.1 Chronic obstructive pulmonary disease with (acute) exacerbation; J44.0 Chronic obstructive pulmonary disease with (acute) lower respiratory infection; E87.0 Hyperosmolality and hypernatremia; B37.0 Candidal stomatitis; Z94.0 Kidney transplant status; Z68.45 Body mass index [BMI] 70 or greater, adult; R53.81 Other malaise; J96.22 Acute and chronic respiratory failure with hypercapnia; M19.90 Unspecified osteoarthritis, unspecified site; K21.9 Gastro-esophageal reflux disease without esophagitis; E11.9 Type 2 diabetes mellitus without complications; I11.0 Hypertensive heart disease with heart failure; E66.09 Other obesity due to excess calories; I78.8 Other diseases of capillaries; G47.33 Obstructive sleep apnea (adult) (pediatric); J45.909 Unspecified asthma, uncomplicated; Z82.49 Family history of ischemic heart disease and other diseases of the circulatory system; Z83.3 Family history of diabetes mellitus; Z90.710 Acquired absence of both cervix and uterus; Z80.9 Family history of malignant neoplasm, unspecified; Z90.49 Acquired absence of other specified parts of digestive tract; R41.82 Altered mental status, unspecified
CPT/HCPCS: 10112

== ENCOUNTER 2016-03-10 10:41 | Inpatient (IN) | payer BC, OTHER ==
[~2016-03-10] VITALS: Ht 162.6 cm; Wt 105.3 kg
--- NOTE | ~2016-03-10 | HC ---
[facility] [place] [address] CONSULTATION Name: KAR LOWRY Room #: 450-[facility] IN ..#: [id number] Admission: 03/10/16 Attend Phys: Ronald Corrigan MD Discharge: Date of : 66 Report #: [id number] THIS REPORT FOR: //name// CC: Xuan Corrigan HISTORY OF PRESENT ILLNESS: The patient is seen in consultation at a request for mild thrombocytopenia. This platelet count has been mildly reduced and not been associated with any untoward bleeding or bruising. This 45-year-old black female who is a recipient of previous kidney transplant and is on chronic immune suppression. She had labs performed at Dr. Palacio's office on 01/29/2016 with a normal platelet count of 289,000. She was admitted with a fever and confusion and transfer from rehab unit and associated with respiratory distress. It has been determined that she has E. coli urinary tract infection with bacteremia. PAST MEDICAL HISTORY: Significant for renal transplant in 2006. She has morbid obesity with non-insulin dependent diabetes. She has a prior laparoscopic cholecystectomy. She has a history of sleep apnea, and GERD. She has medically managed hypertension along with COPD. SOCIAL HISTORY: Denies alcohol or illicit drug use. FAMILY HISTORY: Negative for any hematologic issues according to the patient. MEDICATIONS: As listed on the MFR and prior to hospitalization include her renal transplant immunosuppression. REVIEW OF SYSTEMS: Negative for any known bleeding, bruising, or prior issues. PHYSICAL EXAMINATION: GENERAL: Shows her to be alert. She is slow to answer some questions, however. HEENT: Normocephalic. Her mouth is clear. NECK: Supple. LUNGS: Chest is clear. CARDIOVASCULAR: Normal S1, S2. ABDOMEN: Shows morbid obesity. Spleen is not palpated or percussed. EXTREMITIES: Show edema. NEUROLOGIC: No focal localizing signs. PSYCHIATRIC: Not agitated, confused. LYMPHATICS: Revealed no palpable supraclavicular adenopathy. LABORATORY DATA: Platelets had been 90,000 and have risen to 95 and now today 100,000. ASSESSMENT: Mild thrombocytopenia. [facility] [address] [place] [address] CONSULTATION Name: KAR LOWRY Kash Room #: 450-P [facility] IN M.R.#: [id number] Admission: 03/10/16 Attend Phys: Ronald Corrigan MD Discharge: Date of : 66 Report #: [id number] PLAN: In review of her laboratory studies, this most likely is related to this recent episode of sepsis and does not warrant any intervention. It has continued to rise. It should be fine to reinstitute Lovenox prophylaxis therapy assuming the heparin antibody studies are negative. Thanks for allowing me to participate in her care and asked me to see her in consultation. <ELECTRONICALLY SIGNED> By: Hiral Flores MD 03/14/16 1240 1518 [id number] MD tahmina Jeffrey
--- NOTE | ~2016-03-10 | EKG ---
[address] [address] ELECTROCARDIOGRAM REPORT Name: KAR LOWRY Room #: 450-P ADM IN M.R.#: [id number] Admission: 03/10/16 Attend Phys: Ronald Corrigan MD Discharge: Date of : 66 Report #: [id number] THIS REPORT FOR: //name// [facility] Test Date: 2016-03-10 Test Time: 14:23:30 Pat Name: KAR LOWRY Department: Room: 450 P Gender: F Roller Operator: ANGELIKA : 1970 Requested By: Ronald Corrigan Order Number: [id number] MD: Gallito Escobar Measurements Intervals [place] Rate: 97 P: 5 [place]: 102 QRS: 30 QRSD: 80 T: 196 QT: 303 QTc: 385 Interpretive Statements Sinus rhythm Short [place] interval LAE, consider biatrial enlargement Borderline repolarization abnormality Compared to ECG 03/10/2016 10:14:22 Possible ischemia no longer present ST (T wave) deviation no longer present Electronically Signed On 03-11-2016 8:02:26 TANK PUMPER PANELBOARD by Gallito Escobar [email or web address] <ELECTRONICALLY SIGNED> By: Gallito Escobar MD 03/11/16 0802 1423 1423 Gallito Escobar MD /EPI
--- NOTE | ~2016-03-10 | EKG ---
[address] [address] ELECTROCARDIOGRAM REPORT Name: KAR LOWRY Room #: 450-P ADM IN M.R.#: [id number] Admission: 03/10/16 Attend Phys: Ronald Corrigan MD Discharge: Date of : 66 Report #: [id number] THIS REPORT FOR: //name// [facility] Test Date: 2016-03-10 Test Time: 10:14:22 Pat Name: KAR LOWRY Department: Room: 450 P Gender: F Track Laying Machine Operator: radha : 1970 Requested By: Ronald Corrigan Order Number: [id number] MD: Gallito Escobar Measurements Intervals [place] Rate: 93 P: 22 MA: 98 QRS: 30 QRSD: 105 T: 183 QT: 306 QTc: 381 Interpretive Statements Sinus rhythm Short [place] interval Repol abnrm suggests ischemia, lateral leads Minimal ST elevation, anterior leads Compared to ECG 02/20/2016 23:09:54 Electronically Signed On 03-10-2016 14:14:38 MENTALLY RETARDED TEACHER by Gallito Escobar [email or web address] <ELECTRONICALLY SIGNED> By: Gallito Ecsobar MD 03/10/16 1414 1014 1014 Gallito Escobar MD /SUHAS
--- NOTE | ~2016-03-10 | H ---
[facility] [place] [address] HISTORY AND PHYSICAL Name: KAR LOWRY Room #: 450-P ADM IN M.R.#: [id number] Admission: 03/10/16 Attend Phys: Ronald Corrigan MD Discharge: Date of : 66 Report #: [id number] THIS REPORT FOR: //name// CC: Devin Corrigan DATE OF SERVICE: 03/10/2016 CHIEF COMPLAINT: Altered mental status and respiratory distress. HISTORY OF PRESENT ILLNESS: The patient is a 45-year-old female, well known to me from her recent admission at [facility], who is transferred back to acute care from rehab because of altered mental status and respiratory distress. The patient had an extensive course in the acute care setting. The patient was admitted with healthcare-associated pneumonia and acute respiratory failure. She was on the ventilator and subsequently extubated. She was treated with broad-spectrum antibiotic at that time. She also underwent bronchoscopy and also later on video-assisted thoracoscopy with wedge resection. Surgical pathology was consistent with capillaritis. The patient is being treated with steroids. There was also consideration to start her on Rituxan after discharge. Her hospital course was also marked by treatment for influenza A. The patient is immunocompromised secondary to her renal transplant and that has been followed by forensics team director. She does have a history of diabetes. Apparently today, she was found to be more lethargic. The patient was seen by Dr. Duffy and recommended to be transferred to acute care setting. Initial blood sugar was low at 50, but it improved with glucose 280. When I examined her, the patient was awake. She was oriented to person and place. She could not tell me the month. She was able to follow some simple commands. She complained of mild shortness of breath, which has been chronic. She has a mild cough. She did have a temperature of 101.3. The patient denies abdominal pain, nausea or vomiting. PAST MEDICAL HISTORY: Significant for renal transplant in 2006. She is on anti-rejection medication. History of hysterectomy, hypertension, osteoarthritis, COPD, recent diagnosis of capillaritis by VATS wedge resection, history of gastroesophageal reflux disease, history of sleep apnea, non-insulin dependent diabetes, obesity and prior laparoscopic cholecystectomy. SOCIAL HISTORY: No smoking, alcohol abuse or illicit drug abuse. FAMILY HISTORY: Significant for cancer, diabetes and heart disease. REVIEW OF SYSTEMS: Limited from the patient because of her medical condition at [address] [address] HISTORY AND PHYSICAL Name: KAR LOWRY Room #: 450-P [facility] IN [facility]#: [id number] Admission: 03/10/16 Attend Phys: Ronald Corrigan MD Discharge: Date of : 66 Report #: [id number] present. CONSTITUTIONAL: She does deny any dizziness. No visual disturbance. Denies any sore throat. GASTROINTESTINAL: Denies any nausea, vomiting or abdominal pain. NEUROLOGIC: Denies any focal numbness or weakness of the extremity. PHYSICAL EXAMINATION: VITAL SIGNS: Blood pressure is 136/76, heart rate is 20 per minute and pulse rate is 92 per minute. The patient is oxygenating 100% and temperature is 38.4. GENERAL: She is lethargic, but she does wake up and follow commands. She is oriented to person and place. HEENT: Pupils equal and reactive to light. Throat, she has a moist mucosa. NECK: Supple. No JVD, no bruit, no lymphadenopathy. CARDIOVASCULAR SYSTEM: S1, S2 and negative S3. CHEST: Bilateral air entry present. Reduced breath sounds in the bases. ABDOMEN: Soft. Bowel sounds present. No mass, no organomegaly, no tenderness. PERIPHERY: There is trace pedal edema. Dorsalis pedis 1+. NEUROLOGICAL EXAMINATION: The patient is able to move all 4 extremities. LABORATORY DATA: Labs reviewed. Labs were presently pending from this morning. Labs from 03/08 showed a white count is 15.5, hemoglobin was 10 and platelets were 90,000. BUN is 41 today, sodium is 147 and potassium is 3.5. ABG showed a pH of 7.442, pCO2 of 62, pO2 of 55 and oxygen saturation was 88. Bicarbonate on the basic metabolic panel was 44. Chest x-ray done today showed unchanged cardiomegaly and pulmonary edema/mixed infiltrate. ASSESSMENT AND PLAN: 1. Altered mental status secondary to hyperglycemia/gtrkv-jp-iynakzy respiratory failure. We will hold off on Levemir at present and monitor her blood sugar. 2. Pgsdf-kv-tgnozpe respiratory failure. The patient will be placed on bypass. Pulmonary has been consulted. We will repeat a blood gas this afternoon and other in the morning. The patient also being started on IV Lasix. 3. Bilateral infiltrates, unchanged. Edema versus secondary to capillaritis. The patient will be continued on steroids. The patient did have a fever. ID will be consulted and . We will also obtain blood cultures, urine analysis and urine culture. 4. Diabetes. We will hold off on Levemir at present and just place her on sliding scale insulin. We will monitor blood sugar closely. 5. Deep venous thrombosis prophylaxis. She will be continued on Lovenox for deep venous thrombosis prophylaxis. 6. Immunocompromised state secondary to renal transplant, on immunosuppressive drugs. Immunosuppressive drugs will be continued as per nephrology [facility] [place] [address] HISTORY AND PHYSICAL Name: KAR LOWRY Room #: 450-P ADM IN M.R.#: [id number] Admission: 03/10/16 Attend Phys: Ronald Corrigan MD Discharge: Date of : 66 Report #: [id number] recommendation. 7. Recent influenza A, treated with Tamiflu. 8. Status post video-assisted thoracoscopic surgery with wedge resection showing capillaritis. We will continue with p.o. prednisone. 9. Obesity. 10. Ltafn-fi-ltxttfg diastolic heart failure. The patient is on IV Lasix. 11. Primary metabolic alkalosis/mild respiratory acidosis. 12. Generalized debility and weakness. Treatment plan has been explained to the patient in detail and also discussed with the nursing staff. <ELECTRONICALLY SIGNED> By: Ronald Corrigan MD 03/10/16 1658 1321 1444 Ronald Corrigan MD /nt
[~2016-03-10 10:41] MED LIST changes: +ENOXAPARIN40 MG/0.1 SUBQ
[2016-03-10 10:54] VITALS: BP 136/76
[2016-03-10 14:34] LABS: URINE BILIRUBIN NEGATIVE (Negative); URINE BLOOD 1+ (Negative); URINE COLOR YELLOW; URINE GLUCOSE-RANDOM* NEGATIVE (Negative); URINE KETONES NEGATIVE (Negative); URINE LEUKOCYTES-REFLEX 2+ (Negative); URINE PROTEIN (DIPSTICK) NEGATIVE (Negative); URINE SPECIFIC GRAVITY 1.015 (1.003-1.035)
[2016-03-10 14:42] LABS: SQUAMOUS 0-3 Few /LPF (0-3); URINE RBC 3-10 Few /HPF (0-2)
[2016-03-10 14:43] LABS: CASTS None Seen /LPF (None Seen); CRYSTALS None Seen /LPF (None Seen)
[2016-03-10 15:25] VITALS: BP 153/62
[2016-03-10 19:04] VITALS: BP 141/70
[2016-03-10 23:44] VITALS: BP 135/73
[2016-03-11 02:54] VITALS: BP 126/63
[2016-03-11 06:01] LABS: HEMATOCRIT 28.9 % (37.0-47.0); HEMOGLOBIN 9.1 gm/dL (12.0-15.0); MCHC 31.6 % (28.0-37.0); MCV 88.6 fL (80.0-100.0); PLATELET COUNT 86 thou/uL (150-400); RBC 3.26 mil/uL (4.20-5.00); RDW 15.1 % (10.5-14.5); WBC 15.4 thou/uL (4.0-11.0)
[2016-03-11 06:10] LABS: MANUAL DIFF YES
[2016-03-11 06:37] LABS: ALBUMIN 1.9 g/dL (3.4-5.0); CREATININE 0.9 mg/dL (0.6-1.3); MAGNESIUM 1.4 mg/dL (1.8-2.4); TOTAL BILIRUBIN 1.1 mg/dL (<0.1-1.0); TOTAL PROTEIN 5.3 g/dL (6.4-8.2)
[2016-03-11 07:01] LABS: ABSOLUTE NEUTROPHILS 14.6 thou/uL (1.4-8.2); TOTAL CELL COUNT 100
[2016-03-11 07:02] LABS: ANISOCYTOSIS 1+; HYPOCHROMASIA 2+
[2016-03-11 07:03] LABS: POIKILOCYTOSIS SLIGHT
[2016-03-11 08:06] VITALS: BP 136/75
[2016-03-11 08:06] LABS: POTASSIUM 4.1 mmol/L (3.5-5.1)
[2016-03-11 11:01] VITALS: BP 132/78
[2016-03-11 15:34] VITALS: BP 122/66
[2016-03-11 19:01] VITALS: BP 121/65
[2016-03-11 20:47] LABS: APTT 27.9 Seconds (24.5-32.8); INR 1.4; PROTIME 14.5 Seconds (9.3-11.4)
[2016-03-11 20:52] LABS: FIBRINOGEN 508.4 mg/dL (210-360)
[2016-03-12 04:43] VITALS: BP 143/83
[2016-03-12 05:25] LABS: HEMATOCRIT 29.7 % (37.0-47.0); HEMOGLOBIN 9.1 gm/dL (12.0-15.0); MANUAL DIFF YES; MCH 27.7 pg (26.0-34.0); MCHC 30.7 % (28.0-37.0); MCV 90.2 fL (80.0-100.0); PLATELET COUNT 95 thou/uL (150-400); RDW 14.9 % (10.5-14.5); WBC 18.6 thou/uL (4.0-11.0)
[2016-03-12 05:33] LABS: MAGNESIUM 1.9 mg/dL (1.8-2.4); POTASSIUM 3.8 mmol/L (3.5-5.1)
[2016-03-12 06:04] LABS: ABSOLUTE NEUTROPHILS 17.5 thou/uL (1.4-8.2); PLATELET ESTIMATE DECREASED; TOTAL CELL COUNT 100
[2016-03-12 06:05] LABS: LARGE PLATELETS FEW
[2016-03-12 07:37] VITALS: BP 145/84
[2016-03-12 11:54] VITALS: BP 121/60
[2016-03-12 15:45] VITALS: BP 131/76
[2016-03-12 19:22] VITALS: BP 123/60
[2016-03-13 03:42] VITALS: BP 134/72
[2016-03-13 05:50] LABS: HEMATOCRIT 28.7 % (37.0-47.0); HEMOGLOBIN 9.1 gm/dL (12.0-15.0); MCH 28.1 pg (26.0-34.0); MCHC 31.8 % (28.0-37.0); MCV 88.5 fL (80.0-100.0); PLATELET COUNT 100 thou/uL (150-400); RBC 3.24 mil/uL (4.20-5.00); RDW 15.3 % (10.5-14.5); WBC 16.9 thou/uL (4.0-11.0)
[2016-03-13 06:08] LABS: MANUAL DIFF YES
[2016-03-13 06:11] LABS: CALCIUM 9.5 mg/dL (8.5-10.1); MAGNESIUM 1.6 mg/dL (1.8-2.4); POTASSIUM 3.5 mmol/L (3.5-5.1); TOTAL BILIRUBIN 0.5 mg/dL (<0.1-1.0); TOTAL PROTEIN 5.6 g/dL (6.4-8.2)
[2016-03-13 08:00] VITALS: BP 128/62
[2016-03-13 09:12] LABS: ABSOLUTE NEUTROPHILS 15.2 thou/uL (1.4-8.2); PLATELET ESTIMATE NORMAL; TOTAL CELL COUNT 100
[2016-03-13 11:53] VITALS: BP 120/52
[2016-03-13 16:35] VITALS: BP 119/71
[2016-03-13 19:19] VITALS: BP 133/67
[2016-03-14 05:05] VITALS: BP 143/80
[2016-03-14 05:51] LABS: ABSOLUTE NEUTROPHILS 15.1 thou/uL (1.4-8.2); MONOCYTES 2.3 % (1.0-8.0); WBC 15.8 thou/uL (4.0-11.0)
[2016-03-14 05:52] LABS: BASOPHILS 0.1 % (0.0-2.0); HEMATOCRIT 28.6 % (37.0-47.0); MCH 27.9 pg (26.0-34.0); MCHC 31.6 % (28.0-37.0); MCV 88.4 fL (80.0-100.0); PLATELET COUNT 105 thou/uL (150-400); POLYS 95.6 % (36.0-66.0); RBC 3.23 mil/uL (4.20-5.00); RDW 15.3 % (10.5-14.5)
[2016-03-14 06:04] LABS: MANUAL DIFF NO
[2016-03-14 06:09] LABS: ANION GAP < 0 mmol/L (7-16); BUN 33 mg/dL (7-18); CALCIUM 9.3 mg/dL (8.5-10.1); CHLORIDE 100 mmol/L (98-107); CREATININE 0.8 mg/dL (0.6-1.3); GLUCOSE 159 mg/dL (70-99); MAGNESIUM 1.7 mg/dL (1.8-2.4); POTASSIUM 4.2 mmol/L (3.5-5.1); SODIUM 144 mmol/L (136-145)
[2016-03-14 06:14] LABS: CO2 45 mmol/L (21-32)
[2016-03-14 07:34] VITALS: BP 147/86
[2016-03-14 11:24] VITALS: BP 128/76
[2016-03-14] MEDS ORDERED: SINEMET CR 50/21 TAB PO (12:56)
[2016-03-14 15:20] VITALS: BP 151/94
[2016-03-14 19:54] VITALS: BP 130/65
[2016-03-15 03:14] VITALS: BP 129/79
[2016-03-15 06:23] LABS: CALCIUM 9.3 mg/dL (8.5-10.1); CREATININE 0.7 mg/dL (0.6-1.3); POTASSIUM 4.1 mmol/L (3.5-5.1)
[2016-03-15 06:26] LABS: HEMATOCRIT 29.8 % (37.0-47.0); HEMOGLOBIN 9.3 gm/dL (12.0-15.0); MCH 27.7 pg (26.0-34.0); MCHC 31.1 % (28.0-37.0); MCV 89.3 fL (80.0-100.0); PLATELET COUNT 112 thou/uL (150-400); RBC 3.34 mil/uL (4.20-5.00); RDW 15.2 % (10.5-14.5); WBC 20.1 thou/uL (4.0-11.0)
[2016-03-15 06:30] LABS: MANUAL DIFF YES
[2016-03-15 07:12] LABS: ABSOLUTE NEUTROPHILS 18.9 thou/uL (1.4-8.2); LARGE PLATELETS RARE; TOTAL CELL COUNT 100
[2016-03-15 08:00] VITALS: BP 135/76
[2016-03-15 11:39] VITALS: BP 118/63
[2016-03-15 17:14] VITALS: BP 108/57
[2016-03-15 19:08] VITALS: BP 126/72
[2016-03-16 03:29] VITALS: BP 134/76
[2016-03-16 06:58] LABS: HEMATOCRIT 28.9 % (37.0-47.0); HEMOGLOBIN 9.1 gm/dL (12.0-15.0); MCH 28.1 pg (26.0-34.0); MCHC 31.4 % (28.0-37.0); MCV 89.3 fL (80.0-100.0); RBC 3.24 mil/uL (4.20-5.00); RDW 15.2 % (10.5-14.5); WBC 21.7 thou/uL (4.0-11.0)
[2016-03-16 07:12] LABS: MANUAL DIFF YES
[2016-03-16 07:24] LABS: CALCIUM 9.5 mg/dL (8.5-10.1); CREATININE 0.8 mg/dL (0.6-1.3)
[2016-03-16 08:00] VITALS: BP 139/86
[2016-03-16 08:16] LABS: ABSOLUTE NEUTROPHILS 19.7 thou/uL (1.4-8.2); LARGE PLATELETS FEW; PLATELET COUNT 121 thou/uL (150-400); PLATELET ESTIMATE SLIGHTLY DECREASED; TOTAL CELL COUNT 100
[2016-03-16 08:17] LABS: ANISOCYTOSIS SLIGHT
[2016-03-16] MEDS ORDERED: PREDNISONE 20 M20 M1 PO (13:34)
[2016-03-16] MEDS ORDERED: BACTRIM DS TAB1 EACH PO (13:34)
[2016-03-16] MEDS ORDERED: LANTUS100 UNIT/M SUBQ (13:34)
[2016-03-28] MEDS ORDERED: DUONEB 2.5-0.5 M3 ML INH (10:42)
[2016-03-28] MEDS ORDERED: COREG6.25 MG PO (10:42)
[2016-03-28] MEDS ORDERED: PULMICORT0.5 MG/21 INH (10:42)
[2016-03-28] MEDS ORDERED: NYSTATIN 1100000 U/M SW&SWALLOW (10:42)
[2016-03-28] MEDS ORDERED: BACTRIM DS TAB1 EACH PO (10:42)
[2016-03-28] MEDS ORDERED: LANTUSSOLASTAR SUBQ (10:42)
[2016-03-28] MEDS ORDERED: PREDNISONE 20 M20 M1 PO (10:42)
[2016-04-24] MEDS ORDERED: TUSSIONEX PENN473 ML PO (23:23)
[2016-04-24] MEDS ORDERED: PREDNISONE 20 M20 MG PO (23:23)
== END 2016-03-16 15:44 | DRG 871 ==
LOC: 4W 10:41
PROVIDERS: Internal Medicine; Internal Medicine Endocrinology, Diabetes & Metabolism
PROC: 5A09357 Assistance with Respiratory Ventilation, Less than 24 Consecutive Hours, Continuous Positive Airway Pressure (ICD-10-PCS; principal; 2016-03-10)
DX: A41.9 Sepsis, unspecified organism (principal); I50.33 Acute on chronic diastolic (congestive) heart failure; J96.21 Acute and chronic respiratory failure with hypoxia; G93.40 Encephalopathy, unspecified; N39.0 Urinary tract infection, site not specified; Z94.0 Kidney transplant status; K21.9 Gastro-esophageal reflux disease without esophagitis; D69.6 Thrombocytopenia, unspecified; J44.9 Chronic obstructive pulmonary disease, unspecified; B96.20 Unspecified Escherichia coli [E. coli] as the cause of diseases classified elsewhere; M19.90 Unspecified osteoarthritis, unspecified site; E66.01 Morbid (severe) obesity due to excess calories; I10 Essential (primary) hypertension; D89.9 Disorder involving the immune mechanism, unspecified; E11.65 Type 2 diabetes mellitus with hyperglycemia; Z90.710 Acquired absence of both cervix and uterus; Z68.39 Body mass index [BMI] 39.0-39.9, adult; Z90.49 Acquired absence of other specified parts of digestive tract; Z80.9 Family history of malignant neoplasm, unspecified; Z83.3 Family history of diabetes mellitus; Z82.49 Family history of ischemic heart disease and other diseases of the circulatory system; Z79.4 Long term (current) use of insulin; Z79.890 Hormone replacement therapy; Z79.2 Long term (current) use of antibiotics; Z79.899 Other long term (current) drug therapy; Z87.01 Personal history of pneumonia (recurrent)
CPT/HCPCS: 10045

== ENCOUNTER 2016-05-05 18:20 | Inpatient (IN) | payer BC, OTHER ==
[2016-05-05] VITALS (7 sets, daily range): BP systolic 87–129; BP diastolic 48–85
[~2016-05-05] VITALS: Ht 157.5 cm; Wt 115.7 kg
--- NOTE | ~2016-05-05 | HC ---
[facility] [place] [address] CONSULTATION Name: KAR LOWRY Room #: 239-P [facility] IN ..#: [id number] Admission: 05/05/16 Attend Phys: Shantanu Moore MD Discharge: Date of : 66 Report #: [id number] THIS REPORT FOR: //name// CC: Xuan Moore DATE OF CONSULTATION: 05/06/2016. REASON FOR CONSULTATION: Acute kidney injury in this renal transplant recipient with acute respiratory failure. HISTORY OF PRESENT ILLNESS: This 45-year-old female has a complicated medical history which includes longstanding diabetes mellitus. She received a donor kidney transplant approximately 10 years ago at [facility]. Her transplant has functioned well over that time with a baseline creatinine in the low 1 range. The patient's primary medical problems over the past several years relate to acute and chronic respiratory issues. She has a history of obstructive sleep apnea. She developed pulmonary infiltrates in 2009 and underwent an open lung biopsy at [facility] at that time. The biopsy revealed acute bronchitis with suspected viral infection. Her acute problems improved moderately though she has been left with significant pulmonary compromise. She was admitted to [facility] on several occasions in the recent past and ultimately underwent a video assisted thoracoscopy by Dr. Buck in February of this year with specimens revealing evidence of capillaritis. She was treated with increased doses of steroids at that time. The patient now presents with complaints of increasing shortness of breath. She was found to be in respiratory distress in the Emergency Room and was intubated. She was admitted to the Intensive Care Unit. Overnight, she became anuric with a rising serum creatinine and renal consultation is requested at this time. PAST MEDICAL HISTORY: Remarkable as described above. The patient has longstanding diabetes mellitus and hypertension, status post renal transplant in 2009. She has known coronary artery disease status post previous anterior wall infarct. She has undergone previous laparoscopic cholecystectomy. MEDICATIONS: On admission to the hospital include prednisone 40 mg daily, Tussionex, DuoNeb, Tylenol, CellCept 250 mg a.m. 500 mg p.m., Bactrim DS 1 tablet daily, nystatin, Lantus, NovoLog, DuoNeb, carvedilol 6.25 mg b.i.d., Pulmicort. FAMILY HISTORY: Remarkable for her father having advanced chronic kidney disease, near need for dialysis. PERSONAL AND SOCIAL HISTORY: The patient does not smoke, use alcohol or have [facility] [address] [place] [address] CONSULTATION Name: KAR LOWRY Room #: 239-P [facility] IN [facility]#: [id number] Admission: 05/05/16 Attend Phys: Shantanu Moore MD Discharge: Date of : 66 Report #: [id number] any history of substance abuse. REVIEW OF SYSTEMS: Not obtainable. PHYSICAL EXAMINATION: GENERAL: Reveals a well-developed, well-nourished sedated, intubated and ventilated female in no acute distress. VITAL SIGNS: Blood pressure 124/72, temperature 39.3, pulse 95, respirations 17. SKIN: Warm and dry with good distal perfusion at this time. There is no gross clubbing or cyanosis present. HEENT: The head is normocephalic and atraumatic. NECK: Supple. LUNGS: Santoro reveal coarse breath sounds and wheezes in all lung santoro. CARDIOVASCULAR: Reveals a regular rate and rhythm without rub. ABDOMEN: Obese, soft and nontender, without palpable mass or organomegaly. NEUROLOGIC: Reveals the patient to be deeply sedated at this time. LABORATORY STUDIES: Available at the time of consultation include sodium 140, potassium 5.0, chloride 102, CO2 33, BUN 24, creatinine 2.5, glucose 268, calcium 9.1, magnesium 1.0. Albumin 2.7. White blood cell count 19,600, hemoglobin 10.5, hematocrit 34.0, platelet count 198,000. Arterial blood gases pH of 7.39, pCO2 of 55, pO2 79 on 40% FiO2. ASSESSMENT: 1. Acute and chronic respiratory failure with a differential diagnosis to include inflammatory versus infectious etiology. The patient has been on chronic relatively low grade immunosuppression for maintenance of her kidney transplant and more recently on higher doses of steroid and possibly received Rituxan for management of her anti-inflammatory lung condition. I am most concerned about a possible opportunistic lung infection at this time. I do not believe that she has significant volume overload contributing to her respiratory insufficiency. 2. Status post donor kidney transplant with baseline serum creatinine in the low 1 range. 3. Diabetes mellitus. 4. Obstructive sleep apnea. 5. Hypertension. PLAN: The patient has critical early ill at this time with only modest urine output, which seems to be in increasing on a Lasix drip. There are no indications for acute renal replacement therapy at this time though the patient will be followed closely over the next 24 hours and may require institution of continuous renal replacement therapy for metabolic and volume support. We will place magnesium and follow serial laboratory studies, I and O, daily weights. I have discussed the case with Dr. Becerril and Dr. Way in an effort to [address] [place] [address] CONSULTATION Name: KAR LOWRY Room #: 239-P ADM IN ..#: [id number] Admission: 05/05/16 Attend Phys: Shantanu Moore MD Discharge: Date of : 66 Report #: [id number] coordinate ongoing care. Please see orders. Critical care 60 minutes. <ELECTRONICALLY SIGNED> By: Melvin Kilgore MD 05/08/16 1025 1040 1126 Melvin Kilgore MD /nt
--- NOTE | ~2016-05-05 | HC ---
[facility] [place] [address] CONSULTATION Name: KAR LOWRY Room #: 464-P ADM IN M.R.#: [id number] Admission: 05/05/16 Attend Phys: Shantanu Moore MD Discharge: Date of : 66 Report #: [id number] THIS REPORT FOR: //name// CC: Garry Kilgore MD DATE OF SERVICE: 05/06/2016 REFERRING PROVIDER: Tom Becerril MD REASON FOR CONSULTATION: Respiratory failure. CHIEF COMPLAINT: Shortness of breath. HISTORY OF PRESENT ILLNESS: Our group was asked to see the patient in consultation while hospitalized at [facility], well known to me from prior admission, where she had a prolonged respiratory failure associated with vasculitis. Findings most consistent on surgical lung biopsy with capillaritis associated with microscopic polyangiitis. She had been on systemic steroids and tapering, was to be on rituximab; however, apparently that had not been administered as best as I can tell through the records approval. The patient presented yesterday evening with increasing shortness of breath history of cough, congestion or wheezing. The patient was noted to be febrile in the Emergency Department and subsequently required emergency intubation in the ICU on mechanical ventilatory support, had undergone bronchoscopy earlier today, currently is sedated, on mechanical ventilation. ALLERGIES: No known drug allergies. PAST MEDICAL HISTORY: 1. 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 2. History of right renal transplant. 3. Hypertension. 4. Asthma. 5. Obstructive sleep apnea. PAST SURGICAL HISTORY: Includes, 1. Kidney transplant in 2006. 2. Hysterectomy. 3. Cholecystectomy. 4. Right lung video-assisted thoracoscopic surgery and biopsy as well as left [facility] [address] [place] [address] CONSULTATION Name: KAR LOWRY Kash Room #: 464-P [facility] IN [facility]#: [id number] Admission: 05/05/16 Attend Phys: Shantanu Moore MD Discharge: Date of : 66 Report #: [id number] video-assisted thoracoscopic surgery with biopsy in 2017. SOCIAL HISTORY: Never smoker. Lives with family. FAMILY HISTORY: Unobtainable. REVIEW OF SYSTEMS: Unobtainable due to current status. PHYSICAL EXAMINATION: VITAL SIGNS: The patient on mechanical ventilator, afebrile, pulse 80s, respiratory rate 16, blood pressure 93/59. GENERAL: This is a morbidly obese, middle-aged black woman in no distress, sedated on the ventilator. ENT: Endotracheal tube in place. NECK: Supple, no lymphadenopathy. LUNGS: coarse inspiratory and expiratory rhonchi. CARDIOVASCULAR: Heart regular. No murmurs noted. ABDOMEN: Obese, soft, nontender, no masses. EXTREMITIES: Warm with 2+ pulses and 1+ edema. LABORATORY DATA: White blood cell count 29,000, hemoglobin 10, hematocrit 33, platelet count 149. Chemistry this morning, sodium 140, potassium 5.0, chloride 102, bicarbonate 33, BUN 24, creatinine 2.5, glucose 268, total bilirubin 1.1. ProBNP 4932. Arterial blood gas on assist control, tidal volume 500, respiratory rate 16, PEEP of 5, FiO2 40% revealed pH 7.39, pCO2 of 55, pO2 of 88, bicarbonate 33. INR was 1.4. Urinalysis is pending. IMPRESSION: 1. Acute on chronic hypoxemic respiratory failure. 2. History of pulmonary vasculitis. There is some concerned that the patient's current decompensation may be related to worsening of underlying vasculitis or had acute infectious process superimposed, fiberoptic bronchoscopy, sent for a stat cytology or special stains as well as cultures performed. Other cultures pending. Consider imaging chest, abdomen and pelvis to further evaluate. 3. Probable sepsis. 4. History of renal transplant. 5. Acute oligo-anuric renal failure. 6. Diabetes mellitus type 2. SUGGESTIONS: As outlined above. Antibiotics per Infectious Disease service. Consider initiating sepsis protocol. Follow up laboratories, await cultures, systemic steroids, consider very high dose steroids. Additional recommendations to follow. [address] [address] CONSULTATION Name: KAR LOWRY Kash Room #: 464-P ADM IN M.R.#: [id number] Admission: 05/05/16 Attend Phys: Shantanu Moore MD Discharge: Date of : 66 Report #: [id number] Total critical care time 45 minutes, not including procedures. Discussed with nursing and Dr. Melvin Kilgore as well. <ELECTRONICALLY SIGNED> By: Sacha Way MD 05/09/16 [address] MD /nt
--- NOTE | ~2016-05-05 | CNG ---
[facility] [place] [address] CYTO-NONGYN REPORT PROCEDURE Name: JAZMYN FRAZIER Room #: 464-P ADM IN M.R.#: [id number] Admission: 05/05/16 Date of : 66 Discharge: Report #: [id number] Path Case #: [id number] CYTOPATHOLOGY REPORT COLLECTION DATE: 05/06/2016 RECEIVED DATE: 05/08/2016 SUBMITTING PHYS: Dr. Sacha Way OTHER PHYS: Dr. Oscar Fournier CLINICAL HISTORY: C/O OF weakness, difficulty breathing. SPECIMEN(S) RECEIVED: A.Bronchoalveolar lavage, RUL * * * * * * * * * * * * FINAL DIAGNOSIS: A. Lung, RUL, Bronchoalveolar lavage: - No malignant cells identified. - Bronchial epithelial cells, alveolar macrophages, and squamous cells present. - Properly controlled silver stain is negative for Pneumocystis organisms. - PROPERLY CONTROLLED SILVER STAIN IS POSITIVE FOR YEAST AND HYPHAL FUNGAL ORGANISMS. PATHOLOGIST: Concha Valentine M.D. REPORT ELECTRONICALLY SIGNED BY: Concha Valentine M.D. DATE/TIME: 05/09/2016 14:24 * * * * * * * * * * * * GROSS PATHOLOGY: A. Bronchoalveolar lavage, RUL: The specimen is submitted unfixed, labeled "Jazmyn Frazier". Received by the Cytology Department is 15 mL of cloudy brown fluid. One ThinPrep slide was prepared for pap stain. One ThinPrpe prepared for silver stain. (clt 05.08.2016) SACK SORTER(S): PAIGE Mckeon(ASCP)IAC INITIAL CPT CODE(S): A; 13042, 74598 Professional services performed by [facility] at [facility] [address], [place] [address] Technical services performed by [facility] at [address] [place] [address], [address], [place] [address]. [facility] [address] [place] [address] CYTO-NONGYN REPORT PROCEDURE Name: JAZMYN FRAZIER Room #: 464-P ADM IN M.R.#: [id number] Admission: 05/05/16 Date of : 66 Discharge: Report #: [id number] Path Case #: [id number] [facility] [address] [place] [address] [address] [place] [address] PHONE: [phone] DIRECTOR: Morgan Malhotra M.D. * * * END OF REPORT * * *
--- NOTE | ~2016-05-05 | HC ---
[facility] [place] [address] CONSULTATION Name: KAR LOWRY Room #: 239-P [facility] IN M.R.#: [id number] Admission: 05/05/16 Attend Phys: Shantanu Moore MD Discharge: Date of : 66 Report #: [id number] THIS REPORT FOR: //name// CC: uXan Moore DATE OF CONSULTATION: 05/06/2016. ATTENDING PHYSICIAN: Dr. Shantanu Moore. REASON FOR CONSULTATION: Fever, possible pneumonia. HISTORY OF PRESENT ILLNESS: The patient is a 45-year-old -[place] woman with multiple medical problems and multiple previous hospitalizations at [facility], readmitted now through the Emergency Room with respiratory distress requiring orotracheal intubation and mechanical ventilation. The patient had sputum culture and started on Zosyn and vancomycin. She is a renal transplant person and immunocompromised host and now she appears to be anuric despite Lasix drip. All information on this patient is gathered from the review of her records. PAST MEDICAL HISTORY: 1. Diabetes mellitus. 2. Renal failure, end-stage renal disease requiring hemodialysis. She undergone renal transplantation in 2006 at [facility]. 3. Hysterectomy. Hypertension. Chronic obstructive pulmonary disease. Morbid obesity. Previous episode of pneumonia. Obstructive asleep. Cholecystectomy. A diastolic dysfunction. DRUG ALLERGIES: None listed. MEDICATIONS: The patient is on chlorhexidine oral care, pantoprazole 40 mg IV daily, vancomycin 1 gram IV every 8 hours, insulin lispro per sliding scale, normal saline at 1000 mL every 12 hours, Lasix drip, fentanyl a 50 mcg q. 1 hour p.r.n., propofol sedation, methylprednisolone 62.5 mg q.i.d. IV, enoxaparin 40 mg subQ at bedtime, Atrovent, albuterol inhalation treatments, Zosyn 4.5 grams IV every 6 hours, acetaminophen 650 p.r.n. q.i.d., p.r.n. glucose, glucagon. SOCIAL HISTORY: Unable to obtain, see H and P, old records. FAMILY HISTORY: Unable to obtain, see H and P, old records. REVIEW OF SYSTEMS: Unable to obtain, see H and P, old records. PHYSICAL EXAMINATION: GENERAL: Morbidly obese woman in the ICU on mechanical ventilator through orotracheal intubation. [facility] [address] [place] [address] CONSULTATION Name: KAR LOWRY Room #: 239-P [facility] IN .R.#: [id number] Admission: 05/05/16 Attend Phys: Shantanu Moore MD Discharge: Date of : 66 Report #: [id number] VITAL SIGNS: Presenting temperature 103.5 at 1821 hours at 05/05/2016, pulse 142, blood pressure 97/47. Vital signs not enter on computer since midnight, pulse 100, respirations 20, blood pressure 87/57, patient appears to be anuric, now she is on ventilator, FiO2 of 40% and saturations are within range. HEENT: There is what appears to be exophthalmus, prominent eyeballs. Pupils small. Mouth, unable to examine. NECK: Supple. LUNGS: Decreased breath sounds throughout. HEART: S1, S2. No gallop or murmur. ABDOMEN: Obese, soft, no palpable masses or megaly. PELVIC AND RECTAL: Deferred. GENITOURINARY; Sheth catheter in place. EXTREMITIES: No clubbing, cyanosis. NEUROLOGIC: Unable to evaluate. LABORATORY DATA: On admission, sodium 137, potassium 4.7, CO2 35, BUN 18, creatinine 1.4, glucose 252, alkaline phosphatase 117, albumin 3 g/dL. Troponin normal. NT-proBNP at 1066. WBC 19,600 and repeat today is 29,200, hemoglobin 10.3 g/dL and platelets decreased from 198,000 yesterday to 149,000 today, the white blood cell count differential yesterday revealed 87% neutrophils, % bands and is pending today. The urinalysis is pending. The ABGs on admission revealed pH 7.40, pCO2 of 50, pO2 , bicarbonate 32.8, lactate 2.83. These set of gases is on FIO2 of 100%. RADIOLOGY EVALUATION: Chest x-ray on admission revealed endotracheal tube, orogastric tube. Cardiomegaly. Vascular congestion, no pneumothorax. ASSESSMENT: 1. Febrile illness. Rule out pneumonia. 2. Diabetes. 3. Immunosuppressed host. 4. Renal transplantation. 5. Anuria. 6. Morbid obesity. 7. Hypoalbuminemia. 8. Worsening leukocytosis. SUGGESTIONS: Recommend while awaiting cultures we will continue coverage with Zosyn, vancomycin and also Levaquin. Currently, cultures are all pending, need MRSA screen. Nasopharyngeal aspiration for rapid influenza test is pending. Procalcitonin, ESR and CRP to be obtain as well. [facility] [address] [place] [address] CONSULTATION Name: KAR LOWRY #: 239-P ADM IN M.Leonel.#: [id number] Admission: 05/05/16 Attend Phys: Shantanu Moore MD Discharge: Date of : 66 Report #: [id number] Shantanu Moore thank you for requesting my suggestions in the care of your patient. <ELECTRONICALLY SIGNED> By: Justin Escobar MD 05/07/16 0542 0553 0705 Justin Escobar MD /nt
--- NOTE | ~2016-05-05 | P ---
[facility] [place] [address] PROCEDURE REPORT Name: KAR LOWRY Room #: 464-P ADM IN M.R.#: [id number] Admission: 05/05/16 Attend Phys: Shantanu Moore MD Discharge: Date of : 66 Report #: [id number] THIS REPORT FOR: //name// CC: Xuan Moore DATE OF SERVICE: 05/06/2016 PROCEDURE: Fiberoptic bronchoscopy with bronchoalveolar lavage of the right upper lobe. The patient was already on mechanical ventilatory support. INDICATION: Pulmonary infiltrates, sepsis and immunocompromised host, ASA classification class III. PROCEDURE NOTATION: No family available to take informed consent. The patient unable to give informed consent. Emergency consent considered due to the nature of her disease. Bronchoscopy equipments were brought to the bedside. The patient was already sedated with propofol GTT as well as begin on mechanical ventilatory support. 1% lidocaine was instilled in the endotracheal tube to provide topical anesthesia. Bronchoscope was then passed through the endotracheal tube until the distal trachea was seen. The airways were surveyed. Mainstem, lobar, segmental and subsegmental bronchi were all explored without significant anatomic variation or disease noted. There was significant edema; however, to the airways. No significant secretions. Bronchoscope was passed in the right upper lobe where bronchoalveolar lavage was performed. The patient tolerated well. No noted complications. IMPRESSION: Diffuse pulmonary infiltrates, immunocompromised host, known history of vasculitis, status post bronchoscopy with bronchoalveolar lavage. PLAN: Await cytologic and microbiologic testing. <ELECTRONICALLY SIGNED> By: Sacha Way MD 05/09/16 [address] MD /nt
--- NOTE | ~2016-05-05 | EKG ---
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: HAILEE : 1970 Requested By: Marcella Blanco Order Number: [id number] MD: Jonah Scruggs Measurements Intervals Woodrow Rate: 90 P: -24 ME: 113 QRS: 47 QRSD: 83 T: 29 QT: 273 QTc: 334 Interpretive Statements Sinus rhythm Borderline short ME interval repolarization abnormality Compared to ECG 04/24/2016 21:34:35 Sinus tachycardia no longer present anterior repolarization abnormality is now present Electronically Signed On 05-07-2016 15:11:48 CDT by Jonah Scruggs [email or web address] <ELECTRONICALLY SIGNED> By: Jonah Scruggs MD, [facility] 05/07/16 1511 14 14 Jonah Scruggs MD, [facility] /EPI
[~2016-05-05 18:20] MED LIST changes: +LANTUSSOLASTAR SUBQ; +NYSTATIN 1100000 U/M SW&SWALLOW; +PREDNISONE 20 M20 M1 PO; +PREDNISONE 20 M20 MG PO; +SINEMET CR 50/21 TAB PO; +TUSSIONEX PENN473 ML PO
[2016-05-05 19:46] LABS: HEMOGLOBIN 10.5 gm/dL (12.0-15.0); MCH 28.3 pg (26.0-34.0); RBC 3.72 mil/uL (4.20-5.00); WBC 19.6 thou/uL (4.0-11.0)
[2016-05-05 19:49] LABS: MCV 91.3 fL (80.0-100.0); PLATELET COUNT 198 thou/uL (150-400); RDW 17.1 % (10.5-14.5)
[2016-05-05 19:51] LABS: MANUAL DIFF YES
[2016-05-05 19:53] LABS: ANION GAP 1 mmol/L (7-16); BUN 18 mg/dL (7-18); CALCIUM 9.5 mg/dL (8.5-10.1); CHLORIDE 101 mmol/L (98-107); CO2 35 mmol/L (21-32); CREATININE 1.4 mg/dL (0.6-1.3); GLUCOSE 252 mg/dL (70-99); POTASSIUM 4.7 mmol/L (3.5-5.1); SODIUM 137 mmol/L (136-145)
[2016-05-05 20:00] LABS: ALKALINE PHOSPHATASE 117 U/L (46-116); SGOT 29 U/L (15-37); SGPT 21 U/L (30-65); TOTAL BILIRUBIN 0.9 mg/dL (<0.1-1.0); TOTAL PROTEIN 6.8 g/dL (6.4-8.2); TROPONIN-I < 0.04 ng/mL (<0.04-0.07)
[2016-05-05 20:07] LABS: METAMYELOCYTES 1 %; PLATELET ESTIMATE NORMAL; TOTAL CELL COUNT 100
[2016-05-05 20:29] LABS: ABG SAMPLE TYPE ARTERIAL; BE(vivo) 9.3 mmol/L (-2 to +3); HCO3 35.5 mmol/L (22.0-26.0); LACTATE 2.83 mmol/L (0.5-2.0); O2(CT) 15.1 mL/dL (15.0-23.0); O2Hb 98.4 % (92.0-98.0); pH 7.405 (7.360-7.450); sO2 99.6 % (92.0-98.0); tCO2 37.3 mmol/L (24.0-30.0)
[2016-05-05 20:34] LABS: STICK SITE R.RADIAL
[2016-05-05 20:35] LABS: TIDAL VOLUME 500 ml
[2016-05-06] VITALS (63 sets, daily range): BP systolic 72–145; BP diastolic 45–114
[2016-05-06 05:39] LABS: HEMATOCRIT 33.1 % (37.0-47.0); HEMOGLOBIN 10.3 gm/dL (12.0-15.0); MCH 28.1 pg (26.0-34.0); MCV 90.6 fL (80.0-100.0); PLATELET COUNT 149 thou/uL (150-400); RBC 3.65 mil/uL (4.20-5.00); WBC 29.2 thou/uL (4.0-11.0)
[2016-05-06 05:43] LABS: ABG SAMPLE TYPE ARTERIAL; BE(vivo) 6.5 mmol/L (-2 to +3); HCO3 32.8 mmol/L (22.0-26.0); LACTATE 3.11 mmol/L (0.5-2.0); O2(CT) 16.7 mL/dL (15.0-23.0); O2Hb 94.2 % (92.0-98.0); PCO2 55.1 mmHg (35.0-45.0); PO2 79.8 mmHg (80.0-100.0); pH 7.393 (7.360-7.450); sO2 95.5 % (92.0-98.0); tCO2 34.5 mmol/L (24.0-30.0)
[2016-05-06 05:43] LABS: MANUAL DIFF YES
[2016-05-06 05:44] LABS: FIO2 40 %; STICK SITE R.RADIAL; TIDAL VOLUME 500 ml
[2016-05-06 05:59] LABS: ALBUMIN 2.7 g/dL (3.4-5.0); CALCIUM 9.1 mg/dL (8.5-10.1); TOTAL BILIRUBIN 1.1 mg/dL (<0.1-1.0); TOTAL PROTEIN 6.1 g/dL (6.4-8.2)
[2016-05-06 06:06] LABS: CREATININE 2.5 mg/dL (0.6-1.3)
[2016-05-06 06:14] LABS: ABSOLUTE NEUTROPHILS 26.3 thou/uL (1.4-8.2); NUCLEATED RBCS 2 /100WBC; TOTAL CELL COUNT 100
[2016-05-06 06:15] LABS: ANISOCYTOSIS 1+; POLYCHROMASIA SLIGHT
[2016-05-06 09:52] LABS: APTT 25.2 Seconds (24.5-32.8); INR 1.4; PROTIME 14.7 Seconds (9.3-11.4)
[2016-05-06 16:22] LABS: CALCIUM 9.1 mg/dL (8.5-10.1); CREATININE 3.3 mg/dL (0.6-1.3); MAGNESIUM 2.1 mg/dL (1.8-2.4); POTASSIUM 5.3 mmol/L (3.5-5.1)
[2016-05-07] VITALS (29 sets, daily range): BP systolic 96–128; BP diastolic 69–93
[2016-05-07 04:57] LABS: HEMATOCRIT 29.4 % (37.0-47.0); HEMOGLOBIN 9.2 gm/dL (12.0-15.0); MCH 27.7 pg (26.0-34.0); MCHC 31.2 g/dL (28.0-37.0); MCV 88.8 fL (80.0-100.0); PLATELET COUNT 113 thou/uL (150-400); RBC 3.32 mil/uL (4.20-5.00); RDW 17.2 % (10.5-14.5)
[2016-05-07 04:59] LABS: MANUAL DIFF YES
[2016-05-07 05:00] LABS: WBC 43.6 thou/uL (4.0-11.0)
[2016-05-07 05:27] LABS: ALBUMIN 2.4 g/dL (3.4-5.0); CALCIUM 9.2 mg/dL (8.5-10.1); CREATININE 3.7 mg/dL (0.6-1.3); MAGNESIUM 2.1 mg/dL (1.8-2.4); TOTAL BILIRUBIN 0.8 mg/dL (<0.1-1.0); TOTAL PROTEIN 5.4 g/dL (6.4-8.2)
[2016-05-07 05:32] LABS: POTASSIUM 4.2 mmol/L (3.5-5.1)
[2016-05-07 06:11] LABS: ABSOLUTE NEUTROPHILS 41.4 thou/uL (1.4-8.2); ANISOCYTOSIS 1+; LARGE PLATELETS OCCASIONAL; TOTAL CELL COUNT 100
[2016-05-08] VITALS (23 sets, daily range): BP systolic 110–142; BP diastolic 71–96
[2016-05-08 05:39] LABS: HEMATOCRIT 30.3 % (37.0-47.0); HEMOGLOBIN 9.4 gm/dL (12.0-15.0); MCH 27.5 pg (26.0-34.0); MCHC 30.8 g/dL (28.0-37.0); MCV 89.1 fL (80.0-100.0); RBC 3.41 mil/uL (4.20-5.00); RDW 17.2 % (10.5-14.5); WBC 37.6 thou/uL (4.0-11.0)
[2016-05-08 07:07] LABS: ALBUMIN 2.1 g/dL (3.4-5.0); CALCIUM 9.7 mg/dL (8.5-10.1); CREATININE 3.8 mg/dL (0.6-1.3); POTASSIUM 3.7 mmol/L (3.5-5.1); TOTAL BILIRUBIN 0.5 mg/dL (<0.1-1.0); TOTAL PROTEIN 5.5 g/dL (6.4-8.2)
[2016-05-08 10:03] LABS: ABG SAMPLE TYPE ARTERIAL; LACTATE 1.64 mmol/L (0.5-2.0); O2(CT) 14.1 mL/dL (15.0-23.0); O2Hb 94.1 % (92.0-98.0); PCO2 50.8 mmHg (35.0-45.0); PO2 84.3 mmHg (80.0-100.0); pH 7.374 (7.360-7.450); tCO2 30.5 mmol/L (24.0-30.0)
[2016-05-08 10:04] LABS: Pressure Support 8 cm H20; STICK SITE R.RADIAL; TIDAL VOLUME 375 ml
[2016-05-08 10:06] LABS: ABG COMMENT CPAP TRIAL-RSBI 67
[2016-05-09] VITALS (11 sets, daily range): BP systolic 115–136; BP diastolic 63–86
[2016-05-09 06:11] LABS: HEMATOCRIT 30.8 % (37.0-47.0); HEMOGLOBIN 9.5 gm/dL (12.0-15.0); MCH 27.2 pg (26.0-34.0); MCHC 30.8 g/dL (28.0-37.0); MCV 88.5 fL (80.0-100.0); RBC 3.48 mil/uL (4.20-5.00); RDW 17.2 % (10.5-14.5); WBC 31.1 thou/uL (4.0-11.0)
[2016-05-09 06:25] LABS: ALBUMIN 2.2 g/dL (3.4-5.0); CALCIUM 9.6 mg/dL (8.5-10.1); CREATININE 3.4 mg/dL (0.6-1.3); MAGNESIUM 1.9 mg/dL (1.8-2.4); PHOSPHORUS 7.1 mg/dL (2.5-4.9); POTASSIUM 3.7 mmol/L (3.5-5.1)
[2016-05-10 01:07] LABS: INFLUENZA B Negative (Negative); METAPNEUMOVIRUS Negative (Negative)
[2016-05-10 05:19] VITALS: BP 138/75
[2016-05-10 06:41] LABS: HEMATOCRIT 32.3 % (37.0-47.0); MCH 27.5 pg (26.0-34.0); MCHC 30.9 g/dL (28.0-37.0); RBC 3.63 mil/uL (4.20-5.00); RDW 17.3 % (10.5-14.5); WBC 26.4 thou/uL (4.0-11.0)
[2016-05-10 07:10] LABS: ALBUMIN 2.5 g/dL (3.4-5.0); CALCIUM 9.6 mg/dL (8.5-10.1); MAGNESIUM 1.9 mg/dL (1.8-2.4); PHOSPHORUS 7.6 mg/dL (2.5-4.9); POTASSIUM 3.6 mmol/L (3.5-5.1)
[2016-05-10 08:08] VITALS: BP 133/69
[2016-05-10 12:43] VITALS: BP 124/64
[2016-05-10 13:57] VITALS: BP 124/64
[2016-05-10 16:42] VITALS: BP 124/79
[2016-05-10 20:00] VITALS: BP 127/78
[2016-05-11 04:00] VITALS: BP 134/67
[2016-05-11 06:15] LABS: HEMATOCRIT 31.1 % (37.0-47.0); HEMOGLOBIN 9.6 gm/dL (12.0-15.0); MCH 27.3 pg (26.0-34.0); MCHC 30.9 g/dL (28.0-37.0); MCV 88.5 fL (80.0-100.0); RBC 3.51 mil/uL (4.20-5.00); RDW 17.4 % (10.5-14.5); WBC 20.8 thou/uL (4.0-11.0)
[2016-05-11 06:33] LABS: ALBUMIN 2.6 g/dL (3.4-5.0); CALCIUM 9.4 mg/dL (8.5-10.1); CREATININE 2.5 mg/dL (0.6-1.3); PHOSPHORUS 6.3 mg/dL (2.5-4.9); POTASSIUM 3.2 mmol/L (3.5-5.1)
[2016-05-11 08:00] VITALS: BP 131/82
[2016-05-11 08:20] LABS: URINE BILIRUBIN NEGATIVE (Negative); URINE BLOOD NEGATIVE (Negative); URINE COLOR YELLOW; URINE GLUCOSE-RANDOM* NEGATIVE (Negative); URINE KETONES NEGATIVE (Negative); URINE LEUKOCYTES-REFLEX NEGATIVE (Negative); URINE PROTEIN (DIPSTICK) NEGATIVE (Negative); URINE SPECIFIC GRAVITY 1.015 (1.003-1.035); URINE UROBILINOGEN 0.2 E.U./dl (0.2-1.0)
[2016-05-11] MEDS ORDERED: CEFDINIR300 MG PO (11:56)
[2016-05-11 12:00] VITALS: BP 130/76
[2016-05-11] MEDS ORDERED: PREDNISONE 20 M20 M1 PO (12:55)
[2016-05-11 14:05] VITALS: BP 124/64
== END 2016-05-11 15:40 | disposition home health service (06) | DRG 871 ==
LOC: ER 18:20 → 4W 19:38 → EROBS 19:38 → ICU 19:38 → 4W 05-09 09:49
PROVIDERS: Family Medicine; Internal Medicine Infectious Disease; Internal Medicine Nephrology; Internal Medicine Pulmonary Disease; Nurse Practitioner; Physician Assistant; Specialist
PROC: 0BH17EZ Insertion of Endotracheal Airway into Trachea, Via Natural or Artificial Opening (ICD-10-PCS; principal; 2016-05-05)
PROC: 5A1945Z Respiratory Ventilation, 24-96 Consecutive Hours (ICD-10-PCS; 2016-05-05)
PROC: 05HN33Z Insertion of Infusion Device into Left Internal Jugular Vein, Percutaneous Approach (ICD-10-PCS; 2016-05-05)
PROC: 0B948ZX Drainage of Right Upper Lobe Bronchus, Via Natural or Artificial Opening Endoscopic, Diagnostic (ICD-10-PCS; 2016-05-06)
DX: A41.51 Sepsis due to Escherichia coli [E. coli] (principal); R65.21 Severe sepsis with septic shock; J96.21 Acute and chronic respiratory failure with hypoxia; N18.6 End stage renal disease; J96.22 Acute and chronic respiratory failure with hypercapnia; J18.9 Pneumonia, unspecified organism; Z94.0 Kidney transplant status; N17.9 Acute kidney failure, unspecified; Z68.42 Body mass index [BMI] 45.0-49.9, adult; I13.2 Hypertensive heart and chronic kidney disease with heart failure and with stage 5 chronic kidney disease, or end stage renal disease; E44.0 Moderate protein-calorie malnutrition; A41.50 Gram-negative sepsis, unspecified; I28.8 Other diseases of pulmonary vessels; J45.909 Unspecified asthma, uncomplicated; G47.33 Obstructive sleep apnea (adult) (pediatric); Z90.710 Acquired absence of both cervix and uterus; Z90.49 Acquired absence of other specified parts of digestive tract; R34 Anuria and oliguria; I25.2 Old myocardial infarction; I25.10 Atherosclerotic heart disease of native coronary artery without angina pectoris; Z84.1 Family history of disorders of kidney and ureter; Z99.2 Dependence on renal dialysis; J44.9 Chronic obstructive pulmonary disease, unspecified; E66.01 Morbid (severe) obesity due to excess calories; Z87.01 Personal history of pneumonia (recurrent); E88.09 Other disorders of plasma-protein metabolism, not elsewhere classified; Z92.25 Personal history of immunosuppression therapy; B96.20 Unspecified Escherichia coli [E. coli] as the cause of diseases classified elsewhere; E11.65 Type 2 diabetes mellitus with hyperglycemia; I50.9 Heart failure, unspecified; Z79.899 Other long term (current) drug therapy; E11.22 Type 2 diabetes mellitus with diabetic chronic kidney disease; I77.6 Arteritis, unspecified; K21.9 Gastro-esophageal reflux disease without esophagitis; M19.90 Unspecified osteoarthritis, unspecified site; Z82.49 Family history of ischemic heart disease and other diseases of the circulatory system
CPT/HCPCS: 10045; 10078

== ENCOUNTER → 2016-05-22 | Outpatient (CLI) | payer BC, OTHER ==
[~2016-05-22] MED LIST changes: +CEFDINIR300 MG PO
== END ==
LOC: RAD 09:59
DX: J18.9 Pneumonia, unspecified organism (principal); R06.00 Dyspnea, unspecified

== ENCOUNTER 2016-06-30 23:41 | Inpatient (IN) | payer BC, OTHER ==
[~2016-06-30] VITALS: Ht 157.5 cm; Wt 114.6 kg
--- NOTE | ~2016-06-30 | HC ---
[facility] [place] [address] CONSULTATION Name: KAR LOWRY Room #: 247-P [facility] IN M.R.#: [id number] Admission: 07/01/16 Attend Phys: Shantanu Moore MD Discharge: Date of : 66 Report #: [id number] THIS REPORT FOR: //name// CC: Xuan Moore DATE OF SERVICE: 07/01/2016 REASON FOR CONSULTATION: Acute respiratory failure. IMPRESSION: 1. Acute hypoxemic respiratory failure. 2. History of pulmonary vasculitis. 3. History of renal transplant. 4. Diabetes. 5. Obesity. 6. History of obstructive sleep apnea. 7. History of pulmonary hypertension. PLAN: Diurese per Renal. Continue aerosol therapy. Agree with ID consultation. Continue corticosteroids. weaning protocol We will follow closely with you. May consider an evaluation at for pulmonary hypertension and interstitial lung disease if this has not been done. 40 min crit care HISTORY OF PRESENT ILLNESS: A 46-year-old female, had sudden onset of shortness of breath 2 hours prior to admission, had taken 1 aerosol therapy at home and 3 other treatments while en route. There was a question of flash pulmonary edema. They were tried on BiPAP and nitroglycerin, had acute blood pressure elevation when was seen in the Emergency Room of 207/143. The patient was intubated, difficult to oxygenate, required high PEEP levels and placed on Diprivan. PAST MEDICAL HISTORY: History of pulmonary capillaritis. I reviewed the [facility] biopsy report. She had diffuse alveolar hemorrhage, active capillaritis. There was also a question of drug reaction versus autoimmune and systemic vasculitic disorder. Rheumatology has already seen patient. She was just seen by Dr. Collazo on 06/21/2016, suggested increase oxygen to 45 L, continue on . HOME MEDICATIONS: I believe included albuterol, aspirin, Coreg, fluticasone, furosemide, DuoNeb, losartan, mycophenolate, prednisone, Bactrim, Prograf, Spiriva. PAST SURGICAL HISTORY: Include kidney transplant, hysterectomy, cholecystectomy, right lung VAT, biopsy, and left video assisted thoracoscopy as well as shunt placement. [facility] [address] [place] [address] CONSULTATION Name: KAR LOWRY Room #: 247-P [facility] IN M.R.#: [id number] Admission: 07/01/16 Attend Phys: Shantanu Moore MD Discharge: Date of : 66 Report #: [id number] SOCIAL HISTORY: Negative tobacco. REVIEW OF SYSTEMS: Unobtainable. PHYSICAL EXAMINATION: CARDIOVASCULAR: The patient is on ventilator, minute ventilation 11, peak airway pressures 38, endotracheal tube and lines in place. LUNGS: Coarse. HEART: Tachy. ABDOMEN: Bowel sounds present. EXTREMITIES: Showed trace edema. NEUROLOGIC: The patient is sedated. LABORATORY DATA: Troponin 0.1, pH 7.505, pCO2 of 48, pO2 of 80%, rate of 24, tidal volume 450, PEEP of 7. Lactate 4. Chest x-ray shows worsening bilateral infiltrates. White count 19.3, hemoglobin 9.7, platelets 264. BUN 23, creatinine 1.4, glucose 230. Initial ABG on BiPAP 7.287, pCO2 of 82, pO2 of 53 on 100%. We will follow closely with you. Echo done in February showed diastolic dysfunction grade 2, RV was normal size, PA pressure was not given; 11/2015 showed a PA systolic of 100; 10/2015, PA systolic was 50. Will follow closely with you. <ELECTRONICALLY SIGNED> By: Alex Salazar MD 07/02/16 1449 1448 2312 Alex Salazar MD /nt
--- NOTE | ~2016-06-30 | EKG ---
[address] [address] ELECTROCARDIOGRAM REPORT Name: KAR LOWRY Room #: 247-P ADM IN M.R.#: [id number] Admission: 07/01/16 Attend Phys: Hafsa Ulloa MD Discharge: Date of : 66 Report #: [id number] THIS REPORT FOR: //name// 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 : 1970 Requested By: Concepcion Rendon Order Number: [id number] MD: Gallito Escobar Measurements Intervals [place] Rate: 111 P: 64 WV: 174 QRS: 21 QRSD: 86 T: 211 QT: 337 QTc: 458 Interpretive Statements Sinus tachycardia Probable left atrial enlargement Probable anterior infarct, age indeterminate Lateral leads are also involved Compared to ECG 05/05/2016 19:15:28 Electronically Signed On 07-03-2016 8:41:31 CDT by Gallito Escobar [email or web address] <ELECTRONICALLY SIGNED> By: Gallito Escobar MD 07/03/16 0841 011 1 Gallito Escobar MD /SUHAS
--- NOTE | ~2016-06-30 | HC ---
[facility] [place] [address] CONSULTATION Name: KAR LOWRY Room #: 247-P [facility] IN [facility].#: [id number] Admission: 07/01/16 Attend Phys: Hafsa Ulloa MD Discharge: Date of : 66 Report #: [id number] THIS REPORT FOR: //name// CC: Xuan Ulloa DATE OF SERVICE: 07/02/2016 CONSULTATION: Infectious diseases. DATE OF CONSULTATION: 07/02/2016. HISTORY OF PRESENT ILLNESS: The patient is a 46-year-old -[place] female who comes to the ER with what sounds like flash pulmonary edema. The patient developed fairly sudden onset of respiratory distress. Within 2 hours, she had to call 911. She received several bronchodilator treatments and positive pressure breathing in the ambulance. When she presented to the emergency room, she was still in extremis and required prompt intubation and mechanical ventilation. Initial workup was significant for blood pressure of 207/143. The initial temperature was 38.2. Infectious disease consultation was requested because of concern that there may be an underlying pneumonia or sepsis. PAST HISTORY: Includes flash pulmonary edema. She has a history of diabetes with hypertension. She has chronic lung disease requiring 4 L of oxygen chronically. She does have asthma and heart failure. The patient had end-stage renal disease until she underwent a renal transplant in 2006, this has maintained satisfactory renal function. The patient has a history of sleep apnea, but does not generally use CPAP. SURGICAL HISTORY: Includes hysterectomy, cholecystectomy and renal transplant. ALLERGIES: The patient has no listed drug allergies. FAMILY HISTORY: Noncontributory. SOCIAL HISTORY: The patient is single. There is no history of tobacco nor alcohol. REVIEW OF SYSTEMS: Unavailable as the patient is sedated and intubated. PHYSICAL EXAMINATION: GENERAL: The patient appears her stated age, critically ill in the ICU, but not in any distress. VITAL SIGNS: Normal. The patient is now afebrile with normal blood pressure. SKIN: No rash, no lesion. [facility] [address] [place] [address] CONSULTATION Name: KAR LOWRY Room #: [facility] IN [facility]#: [id number] Admission: 07/01/16 Attend Phys: Hafsa Ulloa MD Discharge: Date of : 66 Report #: [id number] ENT: Negative. The patient has endotracheal and gastric tube in position. CARDIOVASCULAR: The heart sounds are coarse, but present bilaterally. There are minimal secretions from the endotracheal tube. Heart sounds are distant but normal. ABDOMEN: The belly is obese, soft, nontender. EXTREMITIES: Unremarkable. No cyanosis, no edema. LABORATORY DATA: White count is 19,000; hemoglobin 9.7; and platelet 264,000. Electrolytes are normal. BUN 23, creatinine is 1.4, glucose 230. Liver function tests were normal. Troponin is elevated at 0.1. Lactate was initially elevated at 4.0 and then came back down to normal. Review of her previous hospitalization in April shows that sputum was cultured while she was intubated, it only grew Georgina. ASSESSMENT AND PLAN: In summary, the patient probably has flash pulmonary edema. She initially presented with hypertension and hyperthermia, but these both resolved quickly with control of her oxygenation and ventilation. At this point, it is reasonable to continue empiric antibiotic therapy, although I suspect this is probably more just fluid shift and pulmonary edema. I elected to simplify the antibiotics and stop the Levaquin. We will reduce the Zosyn to every 8 hours based on the renal function. We will await results of the sputum culture. We can also do urinary antigens for Pneumococcus and Legionella as well as a nasal swab for methicillin-resistant Staphylococcus aureus. I do not think the yeast isolated in April was a significant pathogen and yeast in the airway are usually colonizers and some cause invasive pneumonia, particularly the Georgina species. For now, we will continue Zosyn. If the infection workup is negative, we should consider stopping the antibiotic therapy. I appreciate the opportunity to offer input in the care of this complex patient. I will be happy to follow her course until Dr. Gonzales returns on Sunday. Thank you again for requesting infectious disease consultation for the patient. By: [id number] 1103 Sharan Pringle MD /brian
--- NOTE | ~2016-06-30 | HC ---
[facility] [place] [address] CONSULTATION Name: KAR LOWRY Room #: 247-P [facility] IN ..#: [id number] Admission: 07/01/16 Attend Phys: Hafsa Ulloa MD Discharge: Date of : 66 Report #: [id number] THIS REPORT FOR: //name// CC: Xuan Moore DATE OF SERVICE: 07/01/2016 NEPHROLOGY CONSULTATION REASON FOR CONSULTATION: Kidney transplant. HISTORY OF PRESENT ILLNESS: The patient is well known to our service with end-stage renal disease, received a donor kidney transplant in 2006. For the most part, the transplant has done well, although she has had acute kidney injury at the time of various severe infections and recurrent episodes of respiratory failure. She was hospitalized here earlier this year with severe respiratory failure and at that time also had Escherichia coli sepsis and UTI, which were all has resolved. She was doing well at home. Her creatinine is down to 1.4. She developed sudden and acute respiratory failure, was sedated on the ventilator, able to give me no other inflammation at this time. PAST MEDICAL HISTORY: Hysterectomy, hypertension; severe, recurrent pulmonary problems which at one time was thought to be vasculitis and that diagnosis is somewhat in doubt. She has diabetes, a previous cholecystectomy as well. HOME MEDICATIONS: Tacrolimus 4 mg b.i.d.; mycophenolate 250 a.m., 500 p.m., famotidine 20 mg daily, carvedilol 6.25 mg b.i.d., Bactrim DS one daily, insulin. She had been on prednisone at home, I believe 20 mg, so I am not 100% sure about that. FAMILY HISTORY: Hypertension, diabetes. REVIEW OF SYSTEMS: Unobtainable as she is intubated and sedated. PHYSICAL EXAMINATION: GENERAL: This is an overweight patient sedated in the ICU, endotracheal tube in place on the ventilator, 80% FiO2. SKIN: Unremarkable. SKELETAL: Left arm AV fistula. HEENT: Extraocular movements cannot be tested. Pupils are reactive. Vision cannot be tested. Endotracheal tube in place. NECK: Supple, no carotid bruits. CHEST: Crackles and rhonchi. HEART: Regular. ABDOMEN: Soft and nontender. [facility] [address] [place] [address] CONSULTATION Name: KAR LOWRY Room #: [facility] IN [facility].#: [id number] Admission: 07/01/16 Attend Phys: Hafsa Ulloa MD Discharge: Date of : 66 Report #: [id number] EXTREMITIES: Trace peripheral edema. LABORATORY DATA: Creatinine 1.4. BUN 23, white count 19.3. ASSESSMENT AND PLAN: Acute respiratory failure. She has another episodes of acute respiratory failure, superimposed on chronic pulmonary disease of unknown etiology. There is a question as to vasculitis. There is a question as to viral infection, question as to interstitial pneumonitis, all of which is somewhat up in the air. She has had several lung biopsies. I do not believe there has been any definitive diagnosis here. There certainly has been a question of autoimmune disorder, even vasculitis, although any question of active capillaritis with intra-alveolar hemorrhage. She has certainly been on tacrolimus, steroids, and mycophenolate, which has been treatment, but again has another exacerbation with certainly strongly diathesis, fluid overload that would be not consistent with her clinical history. She has excellent cardiac function. Her kidneys working up as good as it has, so effort to diurese her will probably lead to elevating creatinine, but too much for her pulmonary condition. We will certainly follow her along closely. <ELECTRONICALLY SIGNED> By: Lenny Nieto MD 07/03/16 1049 0942 2216 Lenny Nieto MD /nt
--- NOTE | ~2016-06-30 | EKG ---
[address] [address] ELECTROCARDIOGRAM REPORT Name: KAR LOWRY Room #: 247-P ADM IN M.R.#: [id number] Admission: 07/01/16 Attend Phys: Hafsa Ulloa MD Discharge: Date of : 66 Report #: [id number] THIS REPORT FOR: //name// [facility] ED Test Date: 2016-07-01 Test Time: 01:07:11 Pat Name: KAR LOWRY Department: Room: 247 Gender: F Laundry Operator: PIERRE : 1970 Requested By: Concepcion Rendon Order Number: [id number] MD: Gallito Escobar Measurements Intervals [place] Rate: 122 P: -16 [place]: 114 QRS: 16 QRSD: 73 T: 228 QT: 279 QTc: 398 Interpretive Statements Sinus tachycardia Repol abnrm suggests ischemia, anterolateral Compared to ECG 05/05/2016 19:15:28 Electronically Signed On 07-03-2016 8:39:54 CDT by Gallito Escobar [email or web address] <ELECTRONICALLY SIGNED> By: Gallito Escobar MD 07/03/16 0839 D: [id number] 6 Gallito Escobar MD /SUHAS
--- NOTE | ~2016-06-30 | 2DMMODE ---
[facility] [address] [address] 2 D/M-MODE ECHOCARDIOGRAM Name: KAR LOWRY Kash Room #: 247-P [facility] IN [facility].#: [id number] Admission: 07/01/16 Attend Phys: Hafsa Ulloa MD Discharge: Date of : 66 Date of Service: 07/03/16 1009 Report #: [id number] THIS REPORT FOR: //name// APPROVED REPORT Study performed: 07/03/2016 07:35:14 EXAM: Comprehensive 2D, Doppler, and color-flow Echocardiogram Patient Location: Bedside Room #: 247 Blood Pressure: 155/94 mmHg HR: 82 bpm Rhythm: NSR Other Information Study Quality: Adequate Technically limited study due to body habitus. patient in ICU on vent. Indications Pulmonary Hypertension Dyspnea Hx HTN, COPD, CHF, DM, Obesity 2D Dimensions RVDd: 37.76 mm LVEF(%): 77.02 (>50%) IVSd: 12.57 (7-11mm) LVOT Diam: 20.11 (18-24mm) LVDd: 41.46 mm PWd: 13.03 (7-11mm) Ascending Ao: 26.34 (22-36mm) LVDs: 22.69 (25-40mm) Aortic Root: 23.07 mm Lopez's LVEF: 77.02 % Volumes Left Atrial Volume (Systole) Single Plane 4CH: 42.80 mL Single Plane 2CH: 28.34 mL Aortic Valve AoV Peak Rodolfo.: 2.03 m/s AO Peak Gr.: 16.42 mmHg LVOT Max P.49 mmHg LVOT Max V: 1.17 m/s MADELEINE Vmax: 1.84 cm2 [facility] [place] [address] [address] 2 D/M-MODE ECHOCARDIOGRAM Name: KAR LOWRY Room #: [facility]#: [id number] Admission: 07/01/16 Attend Phys: Hafsa Ulloa MD Discharge: Date of : 66 Date of Service: 07/03/16 1009 Report #: [id number] Mitral Valve E/A Ratio: 1.6 MV Decel. Time: 244.39 ms MV E Max Rodolfo.: 1.25 m/s MV A Rodolfo.: 0.78 m/s MV PHT: 70.87 ms IVRT: 93.43 ms Pulmonary Valve PV Peak Rodolfo.: 1.47 m/s PV Peak Gr.: 8.59 mmHg Pulmonary Vein P Vein S: 54.1 m/s P Vein D: 59.1 m/s Tricuspid Valve TR Peak Rodolfo.: 2.48 m/s RAP Estimate: 10.00 mmHg TR Peak Gr.: 24.66 mmHg RVSP: 35.00 mmHg Left Ventricle The left ventricle is normal size. There is normal LV segmental wall motion. Mild concentric left ventricular hypertrophy. The left ventricular systolic function is normal. The left ventricular ejection fraction is within the normal range. LVEF is 65-70%. Grade II - pseudonormal filling dynamics. Right Ventricle The right ventricle is normal size. The right ventricular systolic function is normal. Atria The left atrium size is normal. The right atrium size is normal. Aortic Valve The aortic valve is normal in structure. No aortic regurgitation is present. There is no aortic valvular stenosis. Mitral Valve The mitral valve is normal in structure. There is no mitral valve regurgitation noted. No evidence of mitral valve stenosis. Tricuspid Valve The tricuspid valve is normal in structure. There is trace tricuspid regurgitation. The right atrial pressure is estimated at [address] [address] 2 D/M-MODE ECHOCARDIOGRAM Name: KAR LOWRY Kash Room #: 247-P [facility] IN ..#: [id number] Admission: 07/01/16 Attend Phys: Hafsa Ulloa MD Discharge: Date of : 66 Date of Service: 07/03/16 1009 Report #: [id number] There is mild pulmonary hypertension with estimated PAP of 35 mmHG. Pulmonic Valve Pulmonic valve is not well visualized. Great Vessels The aortic root is normal in size. The ascending aorta is normal in size. IVC is normal in size and collapses <50% with inspiration. Pericardium There is no pericardial effusion. <Conclusion> The left ventricular systolic function is normal. There is normal LV segmental wall motion. LVEF is 65-70%. Grade II - pseudonormal filling dynamics. The aortic valve is normal in structure. No aortic regurgitation or stenosis. The mitral valve is normal in structure, no mitral valve regurgitation noted. There is mild pulmonary hypertension with estimated PAP of 35 mmHg. There is no pericardial effusion. <ELECTRONICALLY SIGNED> By: Jonah Scruggs MD, [facility] 07/03/16 1009 1009 1009 Jonah Scruggs MD, FACC /INF
--- NOTE | ~2016-06-30 | H ---
[facility] [place] [address] HISTORY AND PHYSICAL Name: KAR LOWRY Room #: 456-P ADM IN .R.#: [id number] Admission: 07/01/16 Attend Phys: Hafsa Ulloa MD Discharge: Date of : 66 Report #: [id number] THIS REPORT FOR: //name// CC: Xuan Moore DATE OF SERVICE: 07/01/2016 ATTENDING PHYSICIAN: Shantanu Moore M.D. PRIMARY CARE PHYSICIAN: Unknown. CHIEF COMPLAINT: Severe respiratory distress. HISTORY OF PRESENT ILLNESS: The patient is a 46-year-old -[place] female who has a history of COPD and CHF. She also has a history of a renal transplant for which she is on antirejection medication. She normally wears 4 liters of oxygen at home. She has been wearing oxygen for about a year. Her previous echo in 2016 showed an EF of 65%-70% and grade 2 diastolic dysfunction. She has been here multiple times within the last year and has been intubated in the past. During the last time she was here in April, she did undergo a bronchoscopy and Georgina did growth on her bronchoscopy wash culture. The pathology did not show any malignant cells and was negative for pneumocystis organisms and was positive for yeast and high flow fungal organisms. She was seen by Infectious Disease as well as she developed E. coli bacteremia. 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 I do not see anywhere in her medication history during that time where she was treated for the fungal infection. She came in through the ER today in respiratory distress. Per EMS, she had sudden onset of symptoms. She tried her albuterol treatments at home and en route she was placed on CPAP by EMS, but by the time she arrived here, she was felt to be in pulmonary edema. On BiPAP in the ER, she was only satting in the mid 80s and was extremely hypertensive. She was subsequently intubated. It is not clear if she has been having any fevers or cough or congestion. She is not accompanied by family. She is currently intubated and sedated in the ICU. PAST MEDICAL AND SURGICAL HISTORY: Significant for renal transplant in 2006. She is on antirejection medications. She also has hypertension, osteoarthritis, COPD, pulmonary capillaritis, status post VATS wedge resection, GERD, sleep apnea, diabetes, obesity, hysterectomy and cholecystectomy. ALLERGIES: None. HOME MEDICATIONS: DuoNeb q.4 hours, carvedilol 12.5 mg p.o. b.i.d., losartan 100 mg daily, Tylenol p.r.n., Lasix 80 mg daily, Tussionex q.12 hours, Pulmicort 0.5 b.i.d., Colace 100 mg p.r.n., Pepcid 40 mg daily, prednisone 20 mg daily, [address] [address] HISTORY AND PHYSICAL Name: KAR LOWRY Room #: 456-P [facility] IN M.R.#: [id number] Admission: 07/01/16 Attend Phys: Hafsa Ulloa MD Discharge: Date of : 66 Report #: [id number] Lantus insulin 100 units every day, CellCept 250 mg p.o. daily and Prograf 1 mg daily. SOCIAL HISTORY: The patient's primary doctor is Dr. Chivo Camejo. She is a never smoker, and there is no mention of a prior history of drug or alcohol use. FAMILY HISTORY: Significant for heart disease, cancer and diabetes. REVIEW OF SYSTEMS: Unobtainable due to altered mental status. PHYSICAL EXAMINATION: GENERAL: The patient is sedated, obese female in no acute distress. VITAL SIGNS: Temperature on arrival was 38.2, heart rate was 117, respirations 30 and initial blood pressure was 207/143 which dropped to 89/50. HEENT: Pupils are pinpoint with sluggish reaction. Sclerae are nonicteric. Oral mucosa is with ET tube in place. NECK: Supple, mild JVD is noted. CARDIOVASCULAR: Normal S1 and S2. No murmurs, rubs or gallops. RESPIRATORY: Breath sounds are slightly coarse throughout, diminished in the bases. Breathing is nonlabored with the vent. ABDOMEN: Obese, soft, nontender and nondistended with positive bowel sounds. VASCULAR: Bilateral lower extremity edema 1+. Pedal pulses are 2+. NEUROLOGIC: The patient is sedated on propofol, on the vent. She is unable to follow any commands at this time. ASSESSMENT AND PLAN: 1. Pulmonary edema: The patient likely had flash pulmonary edema due to severe hypertension. She has known diastolic heart failure. She was intubated in the ER due to respiratory distress and hypercapnia. Her repeat ABGs are improving. Continue with vent management per Pulmonary. Continue with intravenous steroids and breathing treatments. 2. Sepsis: She was febrile and tachycardic on arrival with elevated lactate. Her infiltrates could also be related to pneumonia. We will continue with Zosyn and Levaquin and follow blood and sputum cultures. Looking back at her prior bronchoscopy, she did have Georgina grow on her sputum culture and yeast was seen on her pathology from her bronchoscopy. She will likely need antifungal coverage as well. 3. Diabetes: This is uncontrolled, add sliding scale insulin and Accu-Cheks q.6 hours while n.p.o. 4. Pulmonary capillaritis: This likely contributed to pulmonary edema. Continue with steroids and empiric antimicrobial therapy, wean vent as able. Add diuretics. 5. Obesity: There may also be a component of obesity hypoventilation syndrome as well as underlying obstructive sleep apnea, which is known. 6. History of renal transplant: Resume antirejection meds. Consult renal. 7. Deep venous thrombosis prophylaxis: Place sequential compression devices. [facility] [address] [place] [address] HISTORY AND PHYSICAL Name: KAR LOWRY Room #: 456-P ADM IN [facility]#: [id number] Admission: 07/01/16 Attend Phys: Hafsa Ulloa MD Discharge: Date of : 66 Report #: [id number] We will continue to follow the patient closely throughout the hospitalization and make changes based on clinical status. <ELECTRONICALLY SIGNED> By: CARMEN Mullen 07/06/16 0109 0739 1014 CARMEN Mullen /nt
--- NOTE | ~2016-06-30 | CNG ---
[facility] [place] [address] CYTO-NONGYN REPORT PROCEDURE Name: JAZMYN FRAZIER Room #: 247-P ADM IN M.R.#: [id number] Admission: 07/01/16 Date of : 66 Discharge: Report #: [id number] Path Case #: [id number] CYTOPATHOLOGY REPORT COLLECTION DATE: 07/01/2016 RECEIVED DATE: 07/03/2016 SUBMITTING PHYS: Dr. Alex Salazar OTHER PHYS: Dr. Oscar Camejo CLINICAL HISTORY: Resp failure, acute pulmonary edema. SPECIMEN(S) RECEIVED: A.Sputum * * * * * * * * * * * * FINAL DIAGNOSIS: A. Specimen designated as Resp/Sputum: - No malignant cells identified. Predominantly macrophages and inflammatory cells identified. Properly controlled silver stain is negative for Pneumocystis and negative for fungal elements. PATHOLOGIST: Concha Valentine M.D. REPORT ELECTRONICALLY SIGNED BY: Concha Valentine M.D. DATE/TIME: 07/04/2016 16:23 * * * * * * * * * * * * GROSS PATHOLOGY: A. Sputum: The specimen is submitted unfixed, labeled "Jazmyn Frazier". Received by the Cytology Department is four mL of thick red fluid. One ThinPrep slide was prepared for pap stain. One ThinPrep slide prepared for silver stain. (clt 07.03.2016) PRECISION LENS GENERATOR(S): Yamel Stewart, CT(ASCP), IAC INITIAL CPT CODE(S): A; 98226, 54044 Professional services performed by [facility] at [facility] [address], [place] [address] Technical services performed by [facility] at [address] [place] [address], [address], [place] [address]. [facility] [address] [place] [address] CYTO-NONGYN REPORT PROCEDURE Name: JAZMYN FRAZIER Kash Room #: 247-P ADM IN ..#: [id number] Admission: 07/01/16 Date of : 66 Discharge: Report #: [id number] Path Case #: [id number] [facility] [address] [place] [address] PHONE: [phone] DIRECTOR: Morgan Malhotra M.D. * * * END OF REPORT * * *
[2016-06-30 23:42] VITALS: BP 207/143
[2016-07-01] VITALS (28 sets, daily range): BP systolic 84–121; BP diastolic 41–78
[2016-07-01 00:03] LABS: ABG SAMPLE TYPE ARTERIAL; HCO3 38.5 mmol/L (22.0-26.0); LACTATE 3.75 mmol/L (0.5-2.0); O2(CT) 13.9 mL/dL (15.0-23.0); O2Hb 80.4 % (92.0-98.0); PCO2 82.5 mmHg (35.0-45.0); Pressure Support 10 cm H20; STICK SITE R.RADIAL; pH 7.287 (7.360-7.450); sO2 81.6 % (92.0-98.0)
[2016-07-01 00:52] LABS: HEMATOCRIT 32.3 % (37.0-47.0); HEMOGLOBIN 9.7 gm/dL (12.0-15.0); MCH 27.3 pg (26.0-34.0); MCV 90.8 fL (80.0-100.0); PLATELET COUNT 264 thou/uL (150-400); RBC 3.56 mil/uL (4.20-5.00); RDW 16.9 % (10.5-14.5); WBC 19.3 thou/uL (4.0-11.0)
[2016-07-01 01:05] LABS: MANUAL DIFF YES
[2016-07-01 01:06] LABS: ANION GAP 6 mmol/L (7-16); BUN 23 mg/dL (7-18); CALCIUM 10.1 mg/dL (8.5-10.1); CHLORIDE 100 mmol/L (98-107); CO2 40 mmol/L (21-32); CREATININE 1.4 mg/dL (0.6-1.0); GLUCOSE 230 mg/dL (74-106); POTASSIUM 4.7 mmol/L (3.5-5.1); SODIUM 146 mmol/L (136-145)
[2016-07-01 01:16] LABS: ALBUMIN 3.7 g/dL (3.4-5.0); ALKALINE PHOSPHATASE 109 U/L (46-116); NT-PRO BRAIN NAT PEPTIDE 821 pg/mL (<300); SGOT 22 U/L (15-37); SGPT 18 U/L (30-65); TOTAL BILIRUBIN 0.6 mg/dL (<0.1-1.0); TOTAL PROTEIN 7.5 g/dL (6.4-8.2); TROPONIN-I < 0.04 ng/mL (<0.04-0.07)
[2016-07-01 01:20] LABS: ABSOLUTE NEUTROPHILS 15.8 thou/uL (1.4-8.2); ANISOCYTOSIS 1+; TOTAL CELL COUNT 100
[2016-07-01 01:21] LABS: POLYCHROMASIA OCCASIONAL
[2016-07-01] MEDS ORDERED: LOSARTAN POTAS100 MG PO (01:41)
[2016-07-01] MEDS ORDERED: CARVEDILOL12.5 MG PO (01:41)
[2016-07-01] MEDS ORDERED: LANTUS SOL100 UNIT/1 SQ (01:41)
[2016-07-01] MEDS ORDERED: LASIX 80 MG TAB80 MG PO (01:41)
[2016-07-01] MEDS ORDERED: PEPCID40 MG PO (01:42)
[2016-07-01] MEDS ORDERED: PROGRAF 1 MG1 MG PO (01:42)
[2016-07-01] MEDS ORDERED: MYFORTIC180 MG PO (01:42)
[2016-07-01 01:59] LABS: ABG SAMPLE TYPE ARTERIAL; BE(vivo) 10.8 mmol/L (-2 to +3); HCO3 34.9 mmol/L (22.0-26.0); LACTATE 2.46 mmol/L (0.5-2.0); O2(CT) 13.9 mL/dL (15.0-23.0); O2Hb 94.8 % (92.0-98.0); PCO2 44.2 mmHg (35.0-45.0); PO2 73.9 mmHg (80.0-100.0); STICK SITE L.RADIAL; TIDAL VOLUME 600 ml; pH 7.515 (7.360-7.450); tCO2 36.2 mmol/L (24.0-30.0)
[2016-07-01 07:21] LABS: ABG SAMPLE TYPE ARTERIAL; BE(vivo) 12.4 mmol/L (-2 to +3); HCO3 36.9 mmol/L (22.0-26.0); LACTATE 1.95 mmol/L (0.5-2.0); O2(CT) 14.3 mL/dL (15.0-23.0); O2Hb 95.8 % (92.0-98.0); PCO2 47.9 mmHg (35.0-45.0); PO2 86.5 mmHg (80.0-100.0); pH 7.505 (7.360-7.450); sO2 97.2 % (92.0-98.0); tCO2 38.4 mmol/L (24.0-30.0)
[2016-07-01 07:22] LABS: STICK SITE L.BRACHIAL; TIDAL VOLUME 450 ml
[2016-07-02] VITALS (24 sets, daily range): BP systolic 121–155; BP diastolic 71–95
[2016-07-02 04:18] LABS: HEMATOCRIT 30.1 % (37.0-47.0); HEMOGLOBIN 9.4 gm/dL (12.0-15.0); MCH 27.3 pg (26.0-34.0); MCHC 31.2 g/dL (28.0-37.0); MCV 87.5 fL (80.0-100.0); RBC 3.44 mil/uL (4.20-5.00); RDW 17.2 % (10.5-14.5); WBC 12.8 thou/uL (4.0-11.0)
[2016-07-02 04:43] LABS: ALBUMIN 2.7 g/dL (3.4-5.0); CALCIUM 9.5 mg/dL (8.5-10.1); CREATININE 1.8 mg/dL (0.6-1.0); PHOSPHORUS 3.9 mg/dL (2.5-4.9); POTASSIUM 3.8 mmol/L (3.5-5.1)
[2016-07-02 05:08] LABS: ABG SAMPLE TYPE ARTERIAL; BE(vivo) 9.8 mmol/L (-2 to +3); HCO3 35.5 mmol/L (22.0-26.0); O2(CT) 14.8 mL/dL (15.0-23.0); PCO2 54.2 mmHg (35.0-45.0); PO2 127.4 mmHg (80.0-100.0); STICK SITE L.RADIAL; TIDAL VOLUME 450 ml; pH 7.434 (7.360-7.450); sO2 98.6 % (92.0-98.0); tCO2 37.2 mmol/L (24.0-30.0)
[2016-07-02 09:04] LABS: ABG SAMPLE TYPE ARTERIAL; BE(vivo) 8.7 mmol/L (-2 to +3); HCO3 35.6 mmol/L (22.0-26.0); LACTATE 1.47 mmol/L (0.5-2.0); O2(CT) 14.6 mL/dL (15.0-23.0); O2Hb 92.8 % (92.0-98.0); PCO2 61.9 mmHg (35.0-45.0); PO2 74.2 mmHg (80.0-100.0); pH 7.378 (7.360-7.450); sO2 94.2 % (92.0-98.0); tCO2 37.5 mmol/L (24.0-30.0)
[2016-07-02 09:05] LABS: ABG COMMENT 1 HR CPAP; Pressure Support 6 cm H20; STICK SITE R.BRACHIAL
[2016-07-03] VITALS (24 sets, daily range): BP systolic 132–158; BP diastolic 79–100
[2016-07-03 04:31] LABS: HEMATOCRIT 29.4 % (37.0-47.0); HEMOGLOBIN 9.2 gm/dL (12.0-15.0); MCH 26.9 pg (26.0-34.0); MCHC 31.2 g/dL (28.0-37.0); MCV 86.3 fL (80.0-100.0); RBC 3.41 mil/uL (4.20-5.00); RDW 17.5 % (10.5-14.5); WBC 12.5 thou/uL (4.0-11.0)
[2016-07-03 04:47] LABS: ALBUMIN 2.5 g/dL (3.4-5.0); CALCIUM 9.4 mg/dL (8.5-10.1); CREATININE 1.6 mg/dL (0.6-1.0); POTASSIUM 3.5 mmol/L (3.5-5.1); TOTAL BILIRUBIN 0.7 mg/dL (<0.1-1.0); TOTAL PROTEIN 5.9 g/dL (6.4-8.2)
[2016-07-03 11:31] LABS: URINE BILIRUBIN NEGATIVE (Negative); URINE BLOOD 3+ (Negative); URINE COLOR RED; URINE GLUCOSE-RANDOM* NEGATIVE (Negative); URINE KETONES NEGATIVE (Negative); URINE LEUKOCYTES-REFLEX NEGATIVE (Negative); URINE PROTEIN (DIPSTICK) TRACE (Negative); URINE SPECIFIC GRAVITY 1.015 (1.003-1.035); URINE UROBILINOGEN 0.2 E.U./dl (0.2-1.0)
[2016-07-03 11:35] LABS: CASTS None Seen /LPF (None Seen); SQUAMOUS 0-3 Few /LPF (0-3)
[2016-07-03 11:36] LABS: URINE RBC >20 Many /HPF (0-2); URINE WBC-REFLEX 0-5 Rare /HPF (0-5)
[2016-07-04] VITALS (21 sets, daily range): BP systolic 136–172; BP diastolic 70–96
[2016-07-04 04:12] LABS: HEMOGLOBIN 9.7 gm/dL (12.0-15.0); MCH 26.9 pg (26.0-34.0); MCHC 31.3 g/dL (28.0-37.0); MCV 85.9 fL (80.0-100.0); RBC 3.61 mil/uL (4.20-5.00); RDW 17.5 % (10.5-14.5); WBC 11.5 thou/uL (4.0-11.0)
[2016-07-04 04:37] LABS: ALBUMIN 2.7 g/dL (3.4-5.0); CALCIUM 9.6 mg/dL (8.5-10.1); CREATININE 1.5 mg/dL (0.6-1.0); PHOSPHORUS 2.7 mg/dL (2.5-4.9); POTASSIUM 3.3 mmol/L (3.5-5.1)
[2016-07-04 15:12] LABS: ABG SAMPLE TYPE ARTERIAL; BE(vivo) 9.5 mmol/L (-2 to +3); HCO3 36.4 mmol/L (22.0-26.0); LACTATE 1.67 mmol/L (0.5-2.0); O2(CT) 14.4 mL/dL (15.0-23.0); O2Hb 94.8 % (92.0-98.0); PCO2 62.6 mmHg (35.0-45.0); PO2 91.1 mmHg (80.0-100.0); pH 7.382 (7.360-7.450); sO2 96.6 % (92.0-98.0); tCO2 38.3 mmol/L (24.0-30.0)
[2016-07-04 15:14] LABS: STICK SITE R.RADIAL
[2016-07-04 15:15] LABS: Pressure Support 8 cm H20
[2016-07-05] VITALS (8 sets, daily range): BP systolic 123–157; BP diastolic 58–100
[2016-07-05 03:51] LABS: HEMATOCRIT 30.9 % (37.0-47.0); HEMOGLOBIN 9.6 gm/dL (12.0-15.0); MCH 27.3 pg (26.0-34.0); MCHC 31.1 g/dL (28.0-37.0); MCV 87.8 fL (80.0-100.0); RBC 3.52 mil/uL (4.20-5.00); RDW 16.8 % (10.5-14.5); WBC 11.7 thou/uL (4.0-11.0)
[2016-07-05 03:57] LABS: CALCIUM 9.6 mg/dL (8.5-10.1); CREATININE 1.3 mg/dL (0.6-1.0); POTASSIUM 3.4 mmol/L (3.5-5.1)
[2016-07-06 03:39] VITALS: BP 92/48
[2016-07-06 06:26] LABS: ALBUMIN 2.7 g/dL (3.4-5.0); CALCIUM 9.3 mg/dL (8.5-10.1); CREATININE 1.4 mg/dL (0.6-1.0); PHOSPHORUS 4.5 mg/dL (2.5-4.9); POTASSIUM 3.5 mmol/L (3.5-5.1)
[2016-07-06 08:16] VITALS: BP 110/68
[2016-07-06 11:12] VITALS: BP 130/65
[2016-07-06 16:52] VITALS: BP 115/61
[2016-07-06 19:39] VITALS: BP 108/57
[2016-07-07 04:20] VITALS: BP 119/66
[2016-07-07 07:38] VITALS: BP 112/61
[2016-07-07 11:22] VITALS: BP 112/69
[2016-07-07 14:59] VITALS: BP 103/63
[2016-07-07 20:20] VITALS: BP 126/57
[2016-07-08 04:13] VITALS: BP 127/79
[2016-07-08 05:27] LABS: ALBUMIN 2.8 g/dL (3.4-5.0); CALCIUM 9.1 mg/dL (8.5-10.1); CREATININE 0.9 mg/dL (0.6-1.0); PHOSPHORUS 3.1 mg/dL (2.5-4.9); POTASSIUM 3.4 mmol/L (3.5-5.1)
[2016-07-08 07:26] VITALS: BP 112/68
[2016-07-08] MEDS ORDERED: COZAAR 25 MG TA25 M1 PO (11:18)
[2016-07-08] MEDS ORDERED: LASIX 40 MG TAB40 M1 PO (11:18)
[2016-07-08] MEDS ORDERED: BACTRIM DS TAB1 EACH PO (11:21)
[2016-07-08 11:38] VITALS: BP 125/73
[2016-07-08 11:41] VITALS: BP 125/73
== END 2016-07-08 13:47 | disposition home or self-care (01) | DRG 871 ==
LOC: ER 23:41 → ICU 07-01 01:45 → ER 07-01 01:45 → ICU 07-01 02:07 → EROBS 07-01 02:07 → ICU 07-01 02:13 → 4W 07-05 12:00
PROVIDERS: Emergency Medicine; Family Medicine; Hospitalist; Internal Medicine Nephrology; Internal Medicine Pulmonary Disease; Specialist
PROC: 5A1945Z Respiratory Ventilation, 24-96 Consecutive Hours (ICD-10-PCS; principal; 2016-07-01)
PROC: 0BH17EZ Insertion of Endotracheal Airway into Trachea, Via Natural or Artificial Opening (ICD-10-PCS; principal; 2016-07-01)
PROC: 5A09457 Assistance with Respiratory Ventilation, 24-96 Consecutive Hours, Continuous Positive Airway Pressure (ICD-10-PCS; 2016-07-05)
DX: A41.9 Sepsis, unspecified organism (principal); J96.01 Acute respiratory failure with hypoxia; J18.9 Pneumonia, unspecified organism; N17.9 Acute kidney failure, unspecified; Z68.42 Body mass index [BMI] 45.0-49.9, adult; Z94.0 Kidney transplant status; J81.1 Chronic pulmonary edema; E87.0 Hyperosmolality and hypernatremia; D64.9 Anemia, unspecified; I27.2 Other secondary pulmonary hypertension; E87.6 Hypokalemia; J84.89 Other specified interstitial pulmonary diseases; G47.33 Obstructive sleep apnea (adult) (pediatric); E66.01 Morbid (severe) obesity due to excess calories; K21.9 Gastro-esophageal reflux disease without esophagitis; M19.90 Unspecified osteoarthritis, unspecified site; I11.0 Hypertensive heart disease with heart failure; I50.9 Heart failure, unspecified; E11.65 Type 2 diabetes mellitus with hyperglycemia; J44.9 Chronic obstructive pulmonary disease, unspecified; Z79.4 Long term (current) use of insulin; Z79.899 Other long term (current) drug therapy; Z99.81 Dependence on supplemental oxygen; Z90.710 Acquired absence of both cervix and uterus; Z87.01 Personal history of pneumonia (recurrent); Z90.49 Acquired absence of other specified parts of digestive tract; Z82.49 Family history of ischemic heart disease and other diseases of the circulatory system; Z80.9 Family history of malignant neoplasm, unspecified; Z83.3 Family history of diabetes mellitus
CPT/HCPCS: 10045; 10078

== ENCOUNTER 2016-08-28 23:00 | Inpatient (IN) | payer BC, OTHER ==
[~2016-08-28] VITALS: Ht 162.6 cm; Wt 117.5 kg
--- NOTE | ~2016-08-28 | EKG ---
[address] [address] ELECTROCARDIOGRAM REPORT Name: KAR LOWRY Kash Room #: 426-P ADM IN M.R.#: [id number] Admission: 08/29/16 Attend Phys: Dionicio Collins MD Discharge: Date of : 66 Report #: [id number] THIS REPORT FOR: //name// [facility] ED Test Date: 2016-08-29 Test Time: 00:41:58 Pat Name: KAR LOWRY Department: Room: 426 Gender: F Anglesmith Helper: [id number] : 1970 Requested By: Yamel Mcneill Order Number: [id number] MD: Gallito Escobar Measurements Intervals [place] Rate: 81 P: 19 UT: 119 QRS: 24 QRSD: 85 T: -40 QT: 361 QTc: 419 Interpretive Statements Sinus rhythm Borderline short UT interval Borderline T abnormalities, inferior leads Compared to ECG 07/01/2016 01:12:55 T-wave abnormality now present Sinus tachycardia no longer present Myocardial infarct finding no longer present Electronically Signed On 08-29-2016 8:13:21 CDT by Gallito Escobar [email or web address] <ELECTRONICALLY SIGNED> By: Gallito Escobar MD 08/29/16 0813 Gallito Escobar MD /EPI
[2016-08-28 23:00] VITALS: BP 152/96
[~2016-08-28 23:00] MED LIST changes: +CARVEDILOL12.5 MG PO; +COZAAR 25 MG TA25 M1 PO; +LANTUS SOL100 UNIT/1 SQ; +LASIX 80 MG TAB80 MG PO; +LOSARTAN POTAS100 MG PO; +PEPCID40 MG PO; +PROGRAF 1 MG1 MG PO
[2016-08-29 00:02] LABS: RBC 3.74 mil/uL (4.20-5.00)
[2016-08-29 00:03] LABS: HEMATOCRIT 31.6 % (37.0-47.0); HEMOGLOBIN 9.7 gm/dL (12.0-15.0); MCHC 30.8 g/dL (28.0-37.0); MCV 84.4 fL (80.0-100.0); PLATELET COUNT 182 thou/uL (150-400); RDW 17.8 % (10.5-14.5)
[2016-08-29 00:13] LABS: ABG SAMPLE TYPE ARTERIAL; BE(vivo) 7.9 mmol/L (-2 to +3); HCO3 34.3 mmol/L (22.0-26.0); LACTATE 1.33 mmol/L (0.5-2.0); O2(CT) 14.4 mL/dL (15.0-23.0); O2Hb 94.5 % (92.0-98.0); PCO2 57.7 mmHg (35.0-45.0); PO2 79.8 mmHg (80.0-100.0); STICK SITE R.RADIAL; pH 7.392 (7.360-7.450); sO2 95.4 % (92.0-98.0); tCO2 36.1 mmol/L (24.0-30.0)
[2016-08-29 00:13] LABS: MANUAL DIFF YES
[2016-08-29 00:19] LABS: CALCIUM 9.3 mg/dL (8.5-10.1); POTASSIUM 4.2 mmol/L (3.5-5.1)
[2016-08-29 00:54] LABS: ANISOCYTOSIS 2+; HYPOCHROMASIA 1+; LARGE PLATELETS OCCASIONAL; TOTAL CELL COUNT 100
[2016-08-29 01:30] VITALS: BP 150/86
[2016-08-29 08:13] VITALS: BP 144/89
[2016-08-29 10:35] LABS: HEMATOCRIT 30.4 % (37.0-47.0); HEMOGLOBIN 9.5 gm/dL (12.0-15.0); MCH 26.2 pg (26.0-34.0); MCHC 31.1 g/dL (28.0-37.0); MCV 84.1 fL (80.0-100.0); RBC 3.62 mil/uL (4.20-5.00); RDW 17.5 % (10.5-14.5); WBC 13.7 thou/uL (4.0-11.0)
[2016-08-29 11:20] LABS: CALCIUM 9.3 mg/dL (8.5-10.1); CREATININE 1.1 mg/dL (0.6-1.0); POTASSIUM 3.8 mmol/L (3.5-5.1)
[2016-08-29 16:24] VITALS: BP 116/56
[2016-08-29 20:00] VITALS: BP 152/68
[2016-08-29 23:41] VITALS: BP 152/68
[2016-08-30 04:00] VITALS: BP 151/92
[2016-08-30 06:19] LABS: HEMATOCRIT 31.8 % (37.0-47.0); HEMOGLOBIN 9.7 gm/dL (12.0-15.0); MCH 25.4 pg (26.0-34.0); MCHC 30.4 g/dL (28.0-37.0); MCV 83.7 fL (80.0-100.0); RBC 3.81 mil/uL (4.20-5.00); RDW 17.4 % (10.5-14.5)
[2016-08-30 06:47] LABS: ALBUMIN 3.3 g/dL (3.4-5.0); CALCIUM 9.7 mg/dL (8.5-10.1); POTASSIUM 4.5 mmol/L (3.5-5.1); TOTAL BILIRUBIN 0.5 mg/dL (<0.1-1.0); TOTAL PROTEIN 7.4 g/dL (6.4-8.2)
[2016-08-30 08:33] VITALS: BP 132/80
[2016-08-30 16:00] VITALS: BP 135/72
[2016-08-30 20:28] VITALS: BP 148/78
[2016-08-31 05:09] VITALS: BP 115/65
[2016-08-31 08:00] VITALS: BP 138/87
[2016-08-31 10:27] LABS: HEMATOCRIT 30.2 % (37.0-47.0); HEMOGLOBIN 9.4 gm/dL (12.0-15.0); MCH 26.1 pg (26.0-34.0); MCV 84.4 fL (80.0-100.0); RBC 3.58 mil/uL (4.20-5.00); RDW 17.7 % (10.5-14.5); WBC 15.3 thou/uL (4.0-11.0)
[2016-08-31 10:37] LABS: CALCIUM 9.3 mg/dL (8.5-10.1); CREATININE 1.2 mg/dL (0.6-1.0); POTASSIUM 3.6 mmol/L (3.5-5.1)
[2016-08-31 16:00] VITALS: BP 125/63
[2016-08-31 19:47] VITALS: BP 112/51
[2016-08-31 21:11] LABS: INFLUENZA B Negative (Negative); METAPNEUMOVIRUS Negative (Negative)
[2016-09-01 03:55] VITALS: BP 103/50
[2016-09-01 06:19] LABS: HEMATOCRIT 30.1 % (37.0-47.0); HEMOGLOBIN 9.2 gm/dL (12.0-15.0); MCH 25.7 pg (26.0-34.0); MCHC 30.5 g/dL (28.0-37.0); MCV 84.2 fL (80.0-100.0); RBC 3.57 mil/uL (4.20-5.00); RDW 17.7 % (10.5-14.5); WBC 15.8 thou/uL (4.0-11.0)
[2016-09-01 06:37] LABS: CALCIUM 9.1 mg/dL (8.5-10.1); CREATININE 1.1 mg/dL (0.6-1.0); POTASSIUM 3.7 mmol/L (3.5-5.1)
[2016-09-01 07:32] VITALS: BP 137/77
[2016-09-01 08:00] VITALS: BP 137/77
[2016-09-01 12:04] VITALS: BP 137/77
[2016-09-01] MEDS ORDERED: MUCINEX TA600 MG/TA1 PO (12:13)
[2016-09-01] MEDS ORDERED: PREDNISONE 10 M10 MG PO (12:21)
== END 2016-09-01 13:43 | disposition home or self-care (01) | DRG 189 ==
LOC: ER 23:00 → EROBS 08-29 00:33 → 4E 08-29 00:33 → 4S 08-30 12:12 → 4E 08-30 12:12 → 4S 09-01 13:43
PROVIDERS: Emergency Medicine; Internal Medicine; Nurse Practitioner Family
DX: J96.22 Acute and chronic respiratory failure with hypercapnia (principal); J18.9 Pneumonia, unspecified organism; N18.6 End stage renal disease; J44.0 Chronic obstructive pulmonary disease with (acute) lower respiratory infection; J44.1 Chronic obstructive pulmonary disease with (acute) exacerbation; Z94.0 Kidney transplant status; J90 Pleural effusion, not elsewhere classified; Z68.41 Body mass index [BMI] 40.0-44.9, adult; I12.0 Hypertensive chronic kidney disease with stage 5 chronic kidney disease or end stage renal disease; G47.33 Obstructive sleep apnea (adult) (pediatric); E11.9 Type 2 diabetes mellitus without complications; K21.9 Gastro-esophageal reflux disease without esophagitis; I28.8 Other diseases of pulmonary vessels; E11.22 Type 2 diabetes mellitus with diabetic chronic kidney disease; E66.01 Morbid (severe) obesity due to excess calories; Y95 Nosocomial condition; D72.829 Elevated white blood cell count, unspecified; M19.90 Unspecified osteoarthritis, unspecified site; Z79.899 Other long term (current) drug therapy; Z79.4 Long term (current) use of insulin; Z90.49 Acquired absence of other specified parts of digestive tract; Z90.710 Acquired absence of both cervix and uterus; Z83.3 Family history of diabetes mellitus; Z82.49 Family history of ischemic heart disease and other diseases of the circulatory system; Z80.9 Family history of malignant neoplasm, unspecified; Z87.01 Personal history of pneumonia (recurrent)
CPT/HCPCS: 10102; 10183

== ENCOUNTER 2016-09-03 17:51 | Emergency (ER) | payer BC, OTHER ==
[~2016-09-03] VITALS: Ht 162.6 cm; Wt 115.7 kg
--- NOTE | ~2016-09-03 | EKG ---
[address] [address] ELECTROCARDIOGRAM REPORT Name: KAR LOWRY [id number] Admission: 09/03/16 Attend Phys: Discharge: 09/03/16 Date of : 66 Report #: [id number] THIS REPORT FOR: //name// [facility] ED Test Date: 2016-09-03 Test Time: 18:09:04 Pat Name: KAR LOWRY Department: Room: Gender: F Contracts Advisor: ARCENIO : 1970 Requested By: Swapnil Bryan Order Number: [id number] MD: Gallito Escobar Measurements Intervals [place] Rate: 85 P: 14 TX: 110 QRS: 21 QRSD: 116 T: 13 QT: 385 QTc: 458 Interpretive Statements Sinus rhythm Borderline short TX interval Nonspecific intraventricular conduction delay Baseline wander in lead(s) I,II,III,aVR,aVF,V1,V2 Compared to ECG 08/29/2016 00:41:58 Intraventricular conduction delay now present T-wave abnormality no longer present Electronically Signed On 09-03-2016 22:32:01 CDT by Gallito Escobar [email or web address] <ELECTRONICALLY SIGNED> By: Gallito Escobar MD 09/03/16 2232 1809 1809 Gallito Escobar MD /EPI
[~2016-09-03 17:51] MED LIST changes: +MUCINEX TA600 MG/TA1 PO
[2016-09-03] MEDS ORDERED: LEVAQUIN 750 M750 MG PO (18:42)
[2016-09-03 18:57] LABS: HEMATOCRIT 31.8 % (37.0-47.0); HEMOGLOBIN 9.9 gm/dL (12.0-15.0); MCH 25.9 pg (26.0-34.0); MCHC 31.2 g/dL (28.0-37.0); MCV 83.1 fL (80.0-100.0); PLATELET COUNT 170 thou/uL (150-400); RBC 3.83 mil/uL (4.20-5.00); RDW 17.5 % (10.5-14.5); WBC 12.9 thou/uL (4.0-11.0)
[2016-09-03 18:58] LABS: MANUAL DIFF YES
[2016-09-03 19:05] LABS: ANION GAP 0 mmol/L (7-16); BUN 19 mg/dL (7-18); CALCIUM 9.1 mg/dL (8.5-10.1); CHLORIDE 101 mmol/L (98-107); CO2 41 mmol/L (21-32); CREATININE 1.1 mg/dL (0.6-1.0); GLUCOSE 290 mg/dL (74-106); POTASSIUM 3.6 mmol/L (3.5-5.1); SODIUM 142 mmol/L (136-145)
[2016-09-03 19:16] LABS: ALBUMIN 3.3 g/dL (3.4-5.0); ALKALINE PHOSPHATASE 82 U/L (46-116); MAGNESIUM 1.5 mg/dL (1.8-2.4); NT-PRO BRAIN NAT PEPTIDE 1220 pg/mL (<300); SGOT 19 U/L (15-37); SGPT 23 U/L (30-65); TOTAL BILIRUBIN 0.5 mg/dL (<0.1-1.0); TOTAL PROTEIN 6.7 g/dL (6.4-8.2); TROPONIN-I < 0.04 ng/mL (<0.04-0.07)
[2016-09-03 19:25] LABS: ABSOLUTE NEUTROPHILS 12.6 thou/uL (1.4-8.2); ANISOCYTOSIS 1+; POIKILOCYTOSIS SLIGHT; POLYCHROMASIA SLIGHT; TOTAL CELL COUNT 100
[2016-09-03 19:45] LABS: URINE BILIRUBIN NEGATIVE (Negative); URINE BLOOD TRACE (Negative); URINE COLOR YELLOW; URINE GLUCOSE-RANDOM* 1+ (Negative); URINE KETONES NEGATIVE (Negative); URINE LEUKOCYTES-REFLEX NEGATIVE (Negative); URINE PROTEIN (DIPSTICK) NEGATIVE (Negative); URINE UROBILINOGEN 0.2 E.U./dl (0.2-1.0)
[2016-09-04] MEDS ORDERED: PROGRAF 1 MG1 MG PO (16:31)
[2016-09-04] MEDS ORDERED: MYFORTIC360 MG PO ×3 (18:57→18:59)
== END 2016-09-03 19:45 | disposition home or self-care (01) ==
LOC: ER 17:51
PROVIDERS: Emergency Medicine
DX: J44.9 Chronic obstructive pulmonary disease, unspecified (principal); I13.2 Hypertensive heart and chronic kidney disease with heart failure and with stage 5 chronic kidney disease, or end stage renal disease; E11.22 Type 2 diabetes mellitus with diabetic chronic kidney disease; N18.6 End stage renal disease; I50.9 Heart failure, unspecified; M19.90 Unspecified osteoarthritis, unspecified site; E66.9 Obesity, unspecified; Z79.4 Long term (current) use of insulin; Z99.2 Dependence on renal dialysis; Z90.710 Acquired absence of both cervix and uterus; Z90.49 Acquired absence of other specified parts of digestive tract; Z94.0 Kidney transplant status

== ENCOUNTER 2016-09-04 15:51 | Inpatient (IN) | payer BC, OTHER ==
[~2016-09-04] VITALS: Ht 162.6 cm; Wt 115.7 kg
[~2016-09-04 15:51] MED LIST changes: +LEVAQUIN 750 M750 MG PO
[2016-09-04] MEDS ORDERED: PROGRAF 1 MG1 MG PO (16:31)
[2016-09-04 17:35] LABS: ABG SAMPLE TYPE ARTERIAL; HCO3 33.3 mmol/L (22.0-26.0); O2(CT) 14.5 mL/dL (15.0-23.0); PCO2 50.4 mmHg (35.0-45.0); PO2 74.3 mmHg (80.0-100.0); pH 7.438 (7.360-7.450); sO2 95.2 % (92.0-98.0); tCO2 34.9 mmol/L (24.0-30.0)
[2016-09-04 17:36] LABS: STICK SITE R.RADIAL
[2016-09-04 17:37] VITALS: BP 157/83
[2016-09-04] MEDS ORDERED: MYFORTIC360 MG PO ×3 (18:57→18:59)
[2016-09-04 21:33] VITALS: BP 156/64
[2016-09-05 00:12] VITALS: BP 149/84
[2016-09-05 04:09] VITALS: BP 160/90
[2016-09-05 05:47] LABS: HEMATOCRIT 32.4 % (37.0-47.0); HEMOGLOBIN 10.2 gm/dL (12.0-15.0); MCH 25.8 pg (26.0-34.0); MCHC 31.5 g/dL (28.0-37.0); RBC 3.94 mil/uL (4.20-5.00); RDW 17.6 % (10.5-14.5); WBC 14.3 thou/uL (4.0-11.0)
[2016-09-05 06:03] LABS: CALCIUM 9.7 mg/dL (8.5-10.1); CREATININE 0.9 mg/dL (0.6-1.0); POTASSIUM 4.1 mmol/L (3.5-5.1)
[2016-09-05 08:03] VITALS: BP 143/96
[2016-09-05 16:03] VITALS: BP 132/79
[2016-09-05 20:38] VITALS: BP 117/75
[2016-09-06 03:40] VITALS: BP 152/91
[2016-09-06 07:17] LABS: HEMATOCRIT 33.4 % (37.0-47.0); HEMOGLOBIN 10.2 gm/dL (12.0-15.0); MCH 25.6 pg (26.0-34.0); MCHC 30.6 g/dL (28.0-37.0); MCV 83.6 fL (80.0-100.0); RBC 3.99 mil/uL (4.20-5.00); RDW 17.5 % (10.5-14.5); WBC 17.7 thou/uL (4.0-11.0)
[2016-09-06 07:29] VITALS: BP 144/85
[2016-09-06 07:33] LABS: ALBUMIN 3.2 g/dL (3.4-5.0); CALCIUM 10.1 mg/dL (8.5-10.1); CREATININE 0.9 mg/dL (0.6-1.0); PHOSPHORUS 4.3 mg/dL (2.5-4.9); POTASSIUM 3.8 mmol/L (3.5-5.1)
[2016-09-06 11:16] VITALS: BP 105/53
[2016-09-06 15:11] VITALS: BP 122/85
[2016-09-06 20:06] VITALS: BP 115/51
[2016-09-07 04:00] VITALS: BP 170/95
[2016-09-07 06:29] LABS: HEMATOCRIT 33.3 % (37.0-47.0); HEMOGLOBIN 10.2 gm/dL (12.0-15.0); MCH 25.6 pg (26.0-34.0); MCHC 30.7 g/dL (28.0-37.0); MCV 83.5 fL (80.0-100.0); RBC 3.98 mil/uL (4.20-5.00); RDW 17.5 % (10.5-14.5); WBC 18.8 thou/uL (4.0-11.0)
[2016-09-07 06:51] LABS: ALBUMIN 3.1 g/dL (3.4-5.0); CALCIUM 9.7 mg/dL (8.5-10.1); CREATININE 0.9 mg/dL (0.6-1.0); PHOSPHORUS 3.8 mg/dL (2.5-4.9); POTASSIUM 3.5 mmol/L (3.5-5.1)
[2016-09-07 07:34] VITALS: BP 150/88
[2016-09-07 11:58] VITALS: BP 138/67
[2016-09-07 16:09] VITALS: BP 138/57
[2016-09-07 20:03] VITALS: BP 117/61
[2016-09-08] VITALS (7 sets, daily range): BP systolic 103–148; BP diastolic 54–124
[2016-09-08 05:52] LABS: CALCIUM 9.5 mg/dL (8.5-10.1); CREATININE 0.9 mg/dL (0.6-1.0); MAGNESIUM 1.9 mg/dL (1.8-2.4); POTASSIUM 3.8 mmol/L (3.5-5.1)
[2016-09-08] MEDS ORDERED: NYSTATIN 1100000 U/M SWISH&SPIT (12:54)
[2016-09-08] MEDS ORDERED: LASIX 40 MG TAB40 M2 PO (12:55)
[2016-09-08] MEDS ORDERED: PREDNISONE 10 M10 MG PO (12:56)
[2016-09-09 04:22] VITALS: BP 130/62
[2016-09-09 07:17] VITALS: BP 135/87
== END 2016-09-09 10:41 | disposition home or self-care (01) | DRG 189 ==
LOC: 4W 15:51
PROVIDERS: Hospitalist; Internal Medicine Pulmonary Disease; Nurse Practitioner
PROC: 5A09457 Assistance with Respiratory Ventilation, 24-96 Consecutive Hours, Continuous Positive Airway Pressure (ICD-10-PCS; principal; 2016-09-07)
DX: J96.21 Acute and chronic respiratory failure with hypoxia (principal); J44.1 Chronic obstructive pulmonary disease with (acute) exacerbation; Z68.42 Body mass index [BMI] 45.0-49.9, adult; Z94.0 Kidney transplant status; J84.9 Interstitial pulmonary disease, unspecified; I50.30 Unspecified diastolic (congestive) heart failure; I11.0 Hypertensive heart disease with heart failure; E11.9 Type 2 diabetes mellitus without complications; F19.90 Other psychoactive substance use, unspecified, uncomplicated; G47.33 Obstructive sleep apnea (adult) (pediatric); I27.2 Other secondary pulmonary hypertension; I28.8 Other diseases of pulmonary vessels; B37.9 Candidiasis, unspecified; D72.829 Elevated white blood cell count, unspecified; E66.01 Morbid (severe) obesity due to excess calories; Z79.4 Long term (current) use of insulin; Z79.899 Other long term (current) drug therapy; Z82.49 Family history of ischemic heart disease and other diseases of the circulatory system; Z80.9 Family history of malignant neoplasm, unspecified; Z83.3 Family history of diabetes mellitus
CPT/HCPCS: 10045

== ENCOUNTER 2016-12-11 07:45 | Inpatient (IN) | payer BC, OTHER ==
[~2016-12-11] VITALS: Ht 162.6 cm; Wt 112.0 kg
--- NOTE | ~2016-12-11 | HC ---
[facility] [place] [address] CONSULTATION Name: KAR LOWRY Room #: 447-P [facility] IN ..#: [id number] Admission: 12/11/16 Attend Phys: Juan Carlos Jalloh DO Discharge: Date of : 66 Report #: [id number] THIS REPORT FOR: //name// CC: Juan Carlos Camejo Alarm Security Or Surveillance Monitor DATE OF SERVICE: 12/11/2016 TYPE OF REPORT: Nephrology consultation. REASON FOR CONSULTATION: Kidney transplant patient. HISTORY OF PRESENT ILLNESS: This 46-year-old patient is extremely well known to our service, had a kidney transplant for the last 10 years, the transplants done reasonably well. She has had a couple of episodes of acute kidney injury associated with severe infections but for the most part, her creatinine is remained at 1 or below. She has had severe progressive interstitial lung disease, inflammatory lung disease, vasculitis versus capillaritis and has been treated with Rituxan initially approximately 6 months ago and now due for another dose. Chronically, she is maintained on tacrolimus, mycophenolate and steroids. She has been on 20 mg a day of prednisone for some time. This admission, she is having a 1-week history of cough, shortness of breath, intermittent fevers and wheezing and was admitted. PAST MEDICAL HISTORY: Also remarkable for hysterectomy, hypertension, diabetes and previous cholecystectomy. HOME MEDICATIONS: Include Pulmicort inhaler, carvedilol 12.5 mg b.i.d., furosemide 80 mg p.o. b.i.d., insulin, losartan 25 mg daily, 20 mg of prednisone daily, CellCept 500 a.m. and 250 p.m., Protonix 40 mg daily and tacrolimus 4 mg b.i.d. FAMILY HISTORY: Positive for hypertension and diabetes. REVIEW OF SYSTEMS: GENERAL: She has been feeling poorly. EYES: Vision is pretty good. ENT: Hearing okay and swallows okay. Denies mouth ulcers. ENDOCRINE: Positive for the diabetes. RESPIRATORY: Easily short-winded, avoid now with cough. CARDIAC: No history of coronary artery disease. GASTROINTESTINAL: She has had fullness in her upper abdomen appetite has been [facility] [address] [place] [address] CONSULTATION Name: KAR LOWRY Room #: 447-P [facility] IN ..#: [id number] Admission: 12/11/16 Attend Phys: Juan Carlos Jalloh DO Discharge: Date of : 66 Report #: [id number] quite as good. GENITOURINARY: Reasonably good urinary stream. NEUROLOGICAL: No seizure, syncope or stroke. PHYSICAL EXAMINATION: GENERAL: Overweight patient. SKIN: Unremarkable. MUSCULOSKELETAL: She has got left arm AV fistula. HEENT: Extraocular movements are full. Vision intact. No scleral icterus. Hearing intact. Mucous membranes moist. NECK: Supple. No carotid bruits. CHEST: Shows rhonchi with rare wheeze. HEART: Regular but distant. ABDOMEN: Soft and really nontender. EXTREMITIES: Show no peripheral edema. LABORATORY DATA: Hemoglobin is 10.7, white count 12.4 and platelets 187. Sodium 142, potassium 3.3, chloride 103, bicarbonate 39, creatinine 1.1 and BUN 18. ABG: pH 7.41, pCO2 is 60 and pO2 is 62. ASSESSMENT AND PLAN: 1. Acute on chronic respiratory illness. She has interstitial lung disease, probably inflammatory in nature with either capillaritis or vasculitis, now what appears to be an acute infectious exacerbation, possibly viral, being treated with antibiotics. 3. Kidney transplant on 3-drug immunosuppression, stable. 4. Diabetes mellitus. 5. Hypertension. <ELECTRONICALLY SIGNED> By: Lenny Nieto MD 12/14/16 1020 1726 0034 Lenny Nieto MD /nt
--- NOTE | ~2016-12-11 | EKG ---
[place] [address] [place] [address] ELECTROCARDIOGRAM REPORT Name: KAR LOWRY [id number] Admission: 12/11/16 Attend Phys: Discharge: Date of : 66 Report #: [id number] THIS REPORT FOR: //name// [facility] ED Test Date: 2016-12-11 Test Time: 08:21:58 Pat Name: KAR LOWRY Department: Room: Gender: F Bearing Ring Assembler: CARLOS Hewitt RN : 1970 Requested By: Orlin Urena Order Number: [id number] MD: Jonah Scruggs Measurements Intervals [place] Rate: 88 P: 15 HI: 112 QRS: 28 QRSD: 86 T: 269 QT: 311 QTc: 377 Interpretive Statements Sinus rhythm Borderline short HI interval Nonspecific ST and T wave abnormality Compared to ECG 09/03/2016 18:09:04 Nonspecific change in the ST and T wave abnormality Electronically Signed On 12-11-2016 8:54:31 CDT by Jonah Scruggs [email or web address] <ELECTRONICALLY SIGNED> By: Jonah Scruggs MD, [facility] 12/11/16 0854 0 0 Jonah Scruggs MD, [facility] /EPI
--- NOTE | ~2016-12-11 | HC ---
[facility] [place] [address] CONSULTATION Name: KAR LOWRY Room #: 447-P [facility] IN ..#: [id number] Admission: 12/11/16 Attend Phys: Juan Carlos Jalloh DO Discharge: Date of : 66 Report #: [id number] THIS REPORT FOR: //name// CC: Juan Carlos Camejo Literacy Consultant TYPE OF REPORT: Infectious diseases consultation. REASON FOR CONSULTATION: I was asked to evaluate concerning problems pneumonia. 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 She has been hospitalized on many occasions due to relapses of either infection or angitis. Was last admitted in August of this year. Since then was doing reasonably well on 3 drug immunosuppression with prednisone, mycophenolate and tacrolimus. Last week, she developed upper respiratory tract infection with sinus congestion and some postnasal drip. Then, began to have cough with purulent sputum production. Although no documented fever, she has felt feverish without chills or sweats. No pleuritic chest pain. No hemoptysis. She was seen in the outpatient setting and felt to be most likely upper respiratory tract infection. Because of her persistent cough, however, the patient presented to the Emergency Room for further treatment. She has had no travel. No other exposure to ill persons. No nausea, vomiting or diarrhea. Cough has been persistent and productive. No dysuria or frequency. No increased swelling. ALLERGIES: None known. MEDICATIONS: As noted on her MAR, now on azithromycin, ceftriaxone and prednisone has been switched to Solu-Medrol. PAST MEDICAL HISTORY: Unchanged from her history and physical, this admission and my previous consultations. FAMILY HISTORY: Unchanged from her history and physical, this admission and my previous consultations. SOCIAL HISTORY: Unchanged from her history and physical, this admission and my previous consultations. REVIEW OF SYSTEMS: As noted above. PHYSICAL EXAMINATION: VITAL SIGNS: Afebrile with a maximum temperature 100 degrees, hemodynamically stable and on 4 liters of oxygen per nasal cannula. [facility] [address] [place] [address] CONSULTATION Name: KAR LOWRY Room #: 447-P [facility] IN M.R.#: [id number] Admission: 12/11/16 Attend Phys: Juan Carlos Jalloh DO Discharge: Date of : 66 Report #: [id number] GENERAL: Cushingoid and obese. SKIN: Unremarkable. LYMPH: Unremarkable. HEENT: Unremarkable. NECK: Supple. LUNGS: Scattered wheezes and crackles in the bases. No consolidation. HEART: Regular, without murmur, gallop or rub. ABDOMEN: Soft, very mild tenderness in the mid abdomen. No hepatosplenomegaly or mass. EXTREMITIES: Unremarkable. NEUROLOGICAL: Nonfocal. LABORATORY STUDIES: Sodium 142, potassium 3.3, creatinine 1.1 and bicarbonate 39. Hemoglobin 10.7; platelet count 187,000 and WBC 12.4. Influenza antigen negative. Urinalysis unremarkable. RADIOLOGICAL DATA: CT scan of the chest, bilateral infiltrates with right middle lobe and bilateral lower lobe nodular type infiltrates with associated bronchiectasis. Mild pleural thickening and calcifications. IMPRESSION: A 46-year old with pulmonary vasculitis in the setting of renal transplantation. Now with, I suspect, infectious pulmonary infiltrates. RECOMMENDATIONS: Recommend obtaining cultures of sputum for bacteria, fungus and AFB. Check viral respiratory panel. Urine antigens for legionella, strep pneumo and histoplasma. Sputum PCR for legionella. Agree with continuing her current immunosuppression. Try to keep as dry as possible. Renal function at this time is stable. If no improvement, we will pursue a bronchoscopy but at this time, it appears stable enough to observe. <ELECTRONICALLY SIGNED> By: Devin Gonzales MD 12/12/16 1843 10 0458 Devin Gonzales MD /nt
--- NOTE | ~2016-12-11 | HC ---
[facility] [place] [address] CONSULTATION Name: KAR LOWRY Room #: 447-P [facility] IN M.R.#: [id number] Admission: 12/11/16 Attend Phys: Juan Carlos Jalloh DO Discharge: 12/18/16 Date of : 66 Report #: [id number] THIS REPORT FOR: //name// CC: LUIS EDUARDO Bhatti Dental Officer DATE OF SERVICE: 12/11/2016 REFERRING PROVIDER: Dr. Juan Carlos Jalloh. REASON FOR CONSULTATION: Shortness of breath. CHIEF COMPLAINT: Dyspnea. HISTORY OF PRESENT ILLNESS: Our group was asked to see the patient in consultation while hospitalized at [facility], well known to us, typically followed by Dr. Collazo in our group, but has multiple hospital admissions for pulmonary vasculitis for which she has been seeing Dr. Caesar Grimm and has been on rituximab. She is uncertain when her next dose is due as well as ongoing asthma for which she has had difficulty tapering below 20 mg of prednisone daily. She also has obstructive sleep apnea for which she is on nocturnal BiPAP therapy. Currently, she has been having several days of increased cough, initially with upper respiratory congestion, this started to clear just with the use of sjuu-lsv-ldaemtb guaifenesin, however, started having increasing symptoms again over the past several days. Also noted low grade fever, although did not check temperature, had some sweats. No other ill contacts at home. No nausea, vomiting or diarrhea. No recent travel. In the Emergency Department, was noted to require more than her baseline 3 liters of oxygen, is on 5 liters of oxygen at this time, was treated with some aerosol treatments and systemic steroids as well as antibiotics. Symptoms initially improved at this time, no hemoptysis. Sputum color was yellow, minimal chest discomfort associated with cough. ALLERGIES: None known. PAST MEDICAL HISTORY: 1. History of pulmonary vasculitis as described, noted on surgical lung biopsy. 2. History of severe asthma, persistent. 3. History of recurrent lower respiratory infection. 4. History of renal transplant, on immunosuppressive therapy. 5. History of chronic hypoxemic respiratory failure. 6. Morbid obesity with cushingoid features. [facility] [address] [place] [address] CONSULTATION Name: KAR LOWRY Room #: 447-P [facility] IN [facility].#: [id number] Admission: 12/11/16 Attend Phys: Juan Carlos Jalloh DO Discharge: 12/18/16 Date of : 66 Report #: [id number] 7. Hypertension. 8. Severe pulmonary hypertension. SOCIAL HISTORY: Nonsmoker. No significant alcohol consumption. FAMILY HISTORY: Significant for coronary artery disease, cancer, and diabetes mellitus. REVIEW OF SYSTEMS: CONSTITUTIONAL: Fever as noted and general malaise. ENT: Some frontal headaches and upper respiratory congestion reported. CARDIOVASCULAR: No chest pains or palpitations. GASTROINTESTINAL: Some abdominal discomfort, but no nausea, vomiting or diarrhea. GENITOURINARY: No dysuria, no frequency or hematuria. INTEGUMENT: Denies any new rash. MUSCULOSKELETAL: No new joint pains or swelling. Rest of 12-point review of systems negative or as described in HPI. PHYSICAL EXAMINATION: VITAL SIGNS: Temperature 37.8, pulse 100, respiratory rate 20, blood pressure 145/65, oxygen saturation 94% on 5 liters. GENERAL: This is an obese, cushingoid middle-aged woman, does not appear in any distress, able to speak in full sentences. ENT: Clear oropharynx, Mallampati 3 airway, no thrush. NECK: Supple, no lymphadenopathy. LUNGS: Baseline inspiratory crackles about 1/[address] up in addition to expiratory wheezes noted throughout. CARDIOVASCULAR: Heart regular. No murmurs noted. ABDOMEN: Obese, soft, nontender, no masses. EXTREMITIES: With 1+ edema. INTEGUMENT: No rash appreciated. LABORATORY DATA: White blood cell count 12,000, hemoglobin 11, hematocrit 35, platelet count 187. Sodium 142, potassium 3.3, chloride 103, bicarbonate 39, BUN 18, creatinine 1.1 and glucose 129. Arterial blood gas on 3 liters revealed pH 7.42, pCO2 of 59, pO2 of 62, bicarbonate ____. Lactate was normal. Chest x-ray done in the Emergency Department revealed patchy interstitial changes consistent with prior films. Influenza screen is negative. IMPRESSION: 1. Pneumonia in an immunocompromised host with recent antibiotics, most recently about one month ago in addition to multiple admissions for recurrent lower respiratory infection. 2. Chronic steroid use, on immunosuppression. 3. History of renal plan. [address] [address] CONSULTATION Name: KAR LOWRY Room #: 447-P [facility] IN M.R.#: [id number] Admission: 12/11/16 Attend Phys: Juan Carlos Jalloh DO Discharge: 12/18/16 Date of : 66 Report #: [id number] 4. History of polyangiitis with pulmonary vasculitis. 5. Severe asthma with exacerbation. 6. Morbid obesity. 7. Obstructive sleep apnea. SUGGESTIONS: 1. Steroid burst with taper. 2. I would ask Infectious Disease to consult given her immunocompromised nature. 3. Bronchodilators. 4. CT scan of the chest, high resolution, no conscious. 5. We will ask Nephrology to assist with management given her renal transplant history. 6. BiPAP with sleep and as needed. 7. Sputum and blood cultures. 8. Urinary Pneumococcal legionella antigen test. 9. We will follow with you. Thank you for allowing us to assist in this patient's care. <ELECTRONICALLY SIGNED> By: Sacha Way MD 12/25/16 [address] MD /nt
[~2016-12-11 07:45] MED LIST changes: +LASIX 40 MG TAB40 M2 PO; +NYSTATIN 1100000 U/M SWISH&SPIT
[2016-12-11 07:46] VITALS: BP 149/91
[2016-12-11] MEDS ORDERED: LASIX 80 MG TAB80 MG PO (07:56)
[2016-12-11] MEDS ORDERED: PREDNISONE 20 M20 MG PO (07:57)
[2016-12-11 08:16] LABS: HEMATOCRIT 34.5 % (37.0-47.0); HEMOGLOBIN 10.7 gm/dL (12.0-15.0); MCH 26.3 pg (26.0-34.0); MCHC 30.9 g/dL (28.0-37.0); MCV 85.2 fL (80.0-100.0); RBC 4.05 mil/uL (4.20-5.00); RDW 17.1 % (10.5-14.5); WBC 12.4 thou/uL (4.0-11.0)
[2016-12-11 08:30] LABS: ANION GAP 0 mmol/L (7-16); BUN 18 mg/dL (7-18); CALCIUM 9.5 mg/dL (8.5-10.1); CHLORIDE 103 mmol/L (98-107); CO2 39 mmol/L (21-32); CREATININE 1.1 mg/dL (0.6-1.0); GLUCOSE 129 mg/dL (74-106); POTASSIUM 3.3 mmol/L (3.5-5.1); SODIUM 142 mmol/L (136-145)
[2016-12-11 08:30] LABS: ABG SAMPLE TYPE ARTERIAL; BE(vivo) 10.8 mmol/L (-2 to +3); HCO3 37.3 mmol/L (22.0-26.0); LACTATE 0.86 mmol/L (0.5-2.0); O2(CT) 14.9 mL/dL (15.0-23.0); O2Hb 90.5 % (92.0-98.0); PCO2 59.4 mmHg (35.0-45.0); PO2 61.8 mmHg (80.0-100.0); STICK SITE R.RADIAL; pH 7.416 (7.360-7.450); sO2 91.4 % (92.0-98.0); tCO2 39.1 mmol/L (24.0-30.0)
[2016-12-11 08:39] LABS: TROPONIN-I < 0.04 ng/mL (<0.04-0.07)
[2016-12-11 09:30] VITALS: BP 150/75
[2016-12-11 10:18] VITALS: BP 150/75
[2016-12-11 10:39] VITALS: BP 145/65
[2016-12-11 16:00] VITALS: BP 153/76
[2016-12-11 19:29] LABS: URINE BILIRUBIN NEGATIVE (Negative); URINE BLOOD NEGATIVE (Negative); URINE COLOR YELLOW; URINE GLUCOSE-RANDOM* 2+ (Negative); URINE KETONES NEGATIVE (Negative); URINE LEUKOCYTES-REFLEX NEGATIVE (Negative); URINE PROTEIN (DIPSTICK) NEGATIVE (Negative); URINE UROBILINOGEN 0.2 E.U./dl (0.2-1.0)
[2016-12-11 20:02] VITALS: BP 126/68
[2016-12-12 04:46] VITALS: BP 160/80
[2016-12-12 06:00] LABS: HEMATOCRIT 34.8 % (37.0-47.0); HEMOGLOBIN 10.7 gm/dL (12.0-15.0); MCH 26.5 pg (26.0-34.0); MCHC 30.9 g/dL (28.0-37.0); MCV 85.7 fL (80.0-100.0); PLATELET COUNT 197 thou/uL (150-400); RBC 4.06 mil/uL (4.20-5.00)
[2016-12-12 06:03] LABS: MANUAL DIFF YES
[2016-12-12 06:09] LABS: CALCIUM 9.6 mg/dL (8.5-10.1); CREATININE 0.9 mg/dL (0.6-1.0)
[2016-12-12 06:11] LABS: POTASSIUM 4.6 mmol/L (3.5-5.1)
[2016-12-12 06:13] LABS: ALBUMIN 3.3 g/dL (3.4-5.0); MAGNESIUM 2.6 mg/dL (1.8-2.4); TOTAL BILIRUBIN 0.5 mg/dL (<0.1-1.0); TOTAL PROTEIN 7.1 g/dL (6.4-8.2)
[2016-12-12 07:13] VITALS: BP 140/72
[2016-12-12 07:55] LABS: ABSOLUTE NEUTROPHILS 12.7 thou/uL (1.4-8.2); ANISOCYTOSIS SLIGHT; OVALOCYTES OCCASIONAL; POIKILOCYTOSIS SLIGHT; TOTAL CELL COUNT 100
[2016-12-12 15:59] VITALS: BP 128/61
[2016-12-12 18:59] VITALS: BP 115/63
[2016-12-13 03:06] VITALS: BP 146/83
[2016-12-13 07:16] LABS: HEMATOCRIT 33.7 % (37.0-47.0); HEMOGLOBIN 10.2 gm/dL (12.0-15.0); MCH 26.1 pg (26.0-34.0); MCHC 30.4 g/dL (28.0-37.0); MCV 86.1 fL (80.0-100.0); PLATELET COUNT 188 thou/uL (150-400); RBC 3.91 mil/uL (4.20-5.00); RDW 17.3 % (10.5-14.5); WBC 15.3 thou/uL (4.0-11.0)
[2016-12-13 07:24] LABS: MANUAL DIFF YES
[2016-12-13 07:29] LABS: CALCIUM 9.7 mg/dL (8.5-10.1); CREATININE 1.2 mg/dL (0.6-1.0); POTASSIUM 3.9 mmol/L (3.5-5.1)
[2016-12-13 07:47] VITALS: BP 157/103
[2016-12-13 09:47] LABS: ABSOLUTE NEUTROPHILS 14.4 thou/uL (1.4-8.2); ATYPICAL LYMPHS 1 %; TOTAL CELL COUNT 100
[2016-12-13 09:48] LABS: ANISOCYTOSIS 1+; OVALOCYTES FEW; POLYCHROMASIA OCCASIONAL
[2016-12-13 15:00] VITALS: BP 135/73
[2016-12-13 17:11] LABS: ABG SAMPLE TYPE ARTERIAL; BE(vivo) 13.4 mmol/L (-2 to +3); HCO3 43.3 mmol/L (22.0-26.0); LACTATE 1.03 mmol/L (0.5-2.0); O2(CT) 16.2 mL/dL (15.0-23.0); O2Hb 96.1 % (92.0-98.0); PCO2 90.1 mmHg (35.0-45.0); PO2 94.6 mmHg (80.0-100.0); STICK SITE R.RADIAL; tCO2 46.1 mmol/L (24.0-30.0)
[2016-12-13 22:03] LABS: ABG SAMPLE TYPE ARTERIAL; BE(vivo) 13.5 mmol/L (-2 to +3); HCO3 43.4 mmol/L (22.0-26.0); LACTATE 0.91 mmol/L (0.5-2.0); O2(CT) 15.6 mL/dL (15.0-23.0); O2Hb 94.2 % (92.0-98.0); PO2 79.7 mmHg (80.0-100.0); sO2 93.7 % (92.0-98.0); tCO2 46.2 mmol/L (24.0-30.0)
[2016-12-13 22:08] LABS: PCO2 90.7 mmHg (35.0-45.0); pH 7.298 (7.360-7.450)
[2016-12-13 22:09] LABS: FIO2 35 %; STICK SITE L.RADIAL
[2016-12-13 22:10] LABS: TIDAL VOLUME 380 ml
[2016-12-14 00:03] VITALS: BP 154/94
[2016-12-14 04:14] VITALS: BP 137/79
[2016-12-14 06:23] LABS: HEMATOCRIT 35.7 % (37.0-47.0); HEMOGLOBIN 10.6 gm/dL (12.0-15.0); MCH 25.9 pg (26.0-34.0); MCHC 29.6 g/dL (28.0-37.0); MCV 87.3 fL (80.0-100.0); PLATELET COUNT 176 thou/uL (150-400); RBC 4.09 mil/uL (4.20-5.00); RDW 17.2 % (10.5-14.5); WBC 15.2 thou/uL (4.0-11.0)
[2016-12-14 06:27] LABS: MANUAL DIFF YES
[2016-12-14 06:39] LABS: ALBUMIN 3.3 g/dL (3.4-5.0); CREATININE 1.1 mg/dL (0.6-1.0); PHOSPHORUS 3.2 mg/dL (2.5-4.9); POTASSIUM 3.8 mmol/L (3.5-5.1)
[2016-12-14 06:51] LABS: ABG SAMPLE TYPE ARTERIAL; BE(vivo) 16.8 mmol/L (-2 to +3); HCO3 46.3 mmol/L (22.0-26.0); LACTATE 0.79 mmol/L (0.5-2.0); O2(CT) 15.6 mL/dL (15.0-23.0); O2Hb 93.8 % (92.0-98.0); PCO2 87.4 mmHg (35.0-45.0); PO2 77.7 mmHg (80.0-100.0); pH 7.342 (7.360-7.450); sO2 93.9 % (92.0-98.0)
[2016-12-14 06:52] LABS: Pressure Support 14 cm H20; STICK SITE R.RADIAL
[2016-12-14 08:10] VITALS: BP 154/80
[2016-12-14 09:09] LABS: ABSOLUTE NEUTROPHILS 14.1 thou/uL (1.4-8.2); TOTAL CELL COUNT 100
[2016-12-14 09:11] LABS: ANISOCYTOSIS 1+
[2016-12-14 16:20] VITALS: BP 152/86
[2016-12-14 20:00] VITALS: BP 159/77
[2016-12-14 22:09] LABS: INFLUENZA B Negative (Negative); METAPNEUMOVIRUS Positive (Negative)
[2016-12-14 23:05] VITALS: BP 159/77
[2016-12-15 03:14] VITALS: BP 146/71
[2016-12-15 05:30] LABS: HEMATOCRIT 34.8 % (37.0-47.0); HEMOGLOBIN 10.5 gm/dL (12.0-15.0); MCH 25.9 pg (26.0-34.0); MCHC 30.2 g/dL (28.0-37.0); MCV 85.6 fL (80.0-100.0); PLATELET COUNT 180 thou/uL (150-400); RBC 4.07 mil/uL (4.20-5.00); RDW 16.9 % (10.5-14.5); WBC 13.2 thou/uL (4.0-11.0)
[2016-12-15 05:37] LABS: MANUAL DIFF YES
[2016-12-15 05:44] LABS: BUN 27 mg/dL (7-18); CALCIUM 9.6 mg/dL (8.5-10.1); CHLORIDE 102 mmol/L (98-107); CREATININE 1.1 mg/dL (0.6-1.0); GLUCOSE 242 mg/dL (74-106); POTASSIUM 3.7 mmol/L (3.5-5.1); SODIUM 146 mmol/L (136-145)
[2016-12-15 05:51] LABS: CO2 > 45 mmol/L (21-32)
[2016-12-15 05:59] LABS: ABSOLUTE NEUTROPHILS 12.4 thou/uL (1.4-8.2); ANISOCYTOSIS 1+; TOTAL CELL COUNT 100
[2016-12-15 06:00] LABS: POLYCHROMASIA OCCASIONAL
[2016-12-15 07:43] LABS: ABG SAMPLE TYPE ARTERIAL; BE(vivo) 18.8 mmol/L (-2 to +3); HCO3 47.9 mmol/L (22.0-26.0); O2(CT) 16.7 mL/dL (15.0-23.0); O2Hb 97.2 % (92.0-98.0); PCO2 81.8 mmHg (35.0-45.0); PO2 111.4 mmHg (80.0-100.0); STICK SITE R.RADIAL; pH 7.385 (7.360-7.450); sO2 97.7 % (92.0-98.0); tCO2 50.4 mmol/L (24.0-30.0)
[2016-12-15 08:14] VITALS: BP 177/102
[2016-12-15 20:17] VITALS: BP 161/84
[2016-12-16 05:29] LABS: HEMATOCRIT 34.4 % (37.0-47.0); HEMOGLOBIN 10.6 gm/dL (12.0-15.0); MANUAL DIFF YES; MCH 25.9 pg (26.0-34.0); MCHC 30.9 g/dL (28.0-37.0); PLATELET COUNT 179 thou/uL (150-400); RBC 4.09 mil/uL (4.20-5.00); RDW 16.4 % (10.5-14.5); WBC 13.6 thou/uL (4.0-11.0)
[2016-12-16 05:31] VITALS: BP 161/94
[2016-12-16 05:39] LABS: BUN 23 mg/dL (7-18); CALCIUM 9.7 mg/dL (8.5-10.1); CHLORIDE 98 mmol/L (98-107); CREATININE 0.8 mg/dL (0.6-1.0); GLUCOSE 251 mg/dL (74-106); POTASSIUM 3.5 mmol/L (3.5-5.1); SODIUM 145 mmol/L (136-145)
[2016-12-16 05:42] LABS: CO2 > 45 mmol/L (21-32)
[2016-12-16 08:12] LABS: ABSOLUTE NEUTROPHILS 13.1 thou/uL (1.4-8.2); TOTAL CELL COUNT 100
[2016-12-16 08:14] LABS: ANISOCYTOSIS 1+; HYPOCHROMASIA 1+; MICROCYTES 1+; OVALOCYTES FEW
[2016-12-16 08:50] VITALS: BP 171/98
[2016-12-16 16:40] VITALS: BP 154/74
[2016-12-16 19:53] VITALS: BP 155/82; BP 176/93
[2016-12-17 05:37] LABS: HEMATOCRIT 34.5 % (37.0-47.0); HEMOGLOBIN 10.6 gm/dL (12.0-15.0); MCH 25.7 pg (26.0-34.0); MCHC 30.7 g/dL (28.0-37.0); MCV 83.8 fL (80.0-100.0); PLATELET COUNT 180 thou/uL (150-400); RBC 4.11 mil/uL (4.20-5.00); RDW 16.5 % (10.5-14.5); WBC 12.9 thou/uL (4.0-11.0)
[2016-12-17 05:41] LABS: MANUAL DIFF YES
[2016-12-17 05:49] LABS: BUN 24 mg/dL (7-18); CALCIUM 10.1 mg/dL (8.5-10.1); CHLORIDE 99 mmol/L (98-107); CREATININE 0.7 mg/dL (0.6-1.0); GLUCOSE 109 mg/dL (74-106); POTASSIUM 3.2 mmol/L (3.5-5.1); SODIUM 147 mmol/L (136-145)
[2016-12-17 05:52] LABS: CO2 > 45 mmol/L (21-32)
[2016-12-17 05:59] VITALS: BP 146/72
[2016-12-17 08:00] VITALS: BP 161/80
[2016-12-17 08:51] LABS: ABSOLUTE NEUTROPHILS 12.1 thou/uL (1.4-8.2); ANISOCYTOSIS 1+; TOTAL CELL COUNT 100
[2016-12-17 16:00] VITALS: BP 136/68
[2016-12-18 04:06] VITALS: BP 153/80
[2016-12-18 05:56] LABS: CALCIUM 9.6 mg/dL (8.5-10.1); CREATININE 0.8 mg/dL (0.6-1.0)
[2016-12-18] MEDS ORDERED: PREDNISONE 10 M10 MG PO (08:14)
[2016-12-18 08:41] VITALS: BP 145/81
[2016-12-18 12:16] VITALS: BP 145/81
== END 2016-12-18 13:35 | disposition home or self-care (01) | DRG 189 ==
LOC: ER 07:45 → 4S 09:05 → EROBS 09:05 → 4S 10:38 → ENTRNSPT 12-18 13:21 → EDTRNSPTSTS 12-18 13:24 → 4S 12-18 13:35
PROVIDERS: Emergency Medicine; Family Medicine; Internal Medicine Endocrinology, Diabetes & Metabolism; Internal Medicine Pulmonary Disease; Nurse Practitioner; Specialist
PROC: 5A09457 Assistance with Respiratory Ventilation, 24-96 Consecutive Hours, Continuous Positive Airway Pressure (ICD-10-PCS; principal; 2016-12-13)
DX: J96.21 Acute and chronic respiratory failure with hypoxia (principal); N18.6 End stage renal disease; J18.9 Pneumonia, unspecified organism; I12.0 Hypertensive chronic kidney disease with stage 5 chronic kidney disease or end stage renal disease; J44.1 Chronic obstructive pulmonary disease with (acute) exacerbation; J44.0 Chronic obstructive pulmonary disease with (acute) lower respiratory infection; J45.901 Unspecified asthma with (acute) exacerbation; J98.11 Atelectasis; Z68.41 Body mass index [BMI] 40.0-44.9, adult; Z94.0 Kidney transplant status; M19.90 Unspecified osteoarthritis, unspecified site; K21.9 Gastro-esophageal reflux disease without esophagitis; G47.30 Sleep apnea, unspecified; E11.22 Type 2 diabetes mellitus with diabetic chronic kidney disease; E87.6 Hypokalemia; E83.42 Hypomagnesemia; D72.829 Elevated white blood cell count, unspecified; E66.01 Morbid (severe) obesity due to excess calories; G47.33 Obstructive sleep apnea (adult) (pediatric); I28.8 Other diseases of pulmonary vessels; J96.22 Acute and chronic respiratory failure with hypercapnia; T50.995A Adverse effect of other drugs, medicaments and biological substances, initial encounter; Z99.81 Dependence on supplemental oxygen; Z99.2 Dependence on renal dialysis; Z90.710 Acquired absence of both cervix and uterus; Z90.49 Acquired absence of other specified parts of digestive tract; Z79.52 Long term (current) use of systemic steroids; Y92.89 Other specified places as the place of occurrence of the external cause
CPT/HCPCS: 10100

== ENCOUNTER → 2017-06-18 | Outpatient (CLI) | payer BC, OTHER | LOC: RAD 12:35 | DX: I51.7 Cardiomegaly (principal) ==

== ENCOUNTER 2017-11-14 12:28 | Inpatient (IN) | payer OTHER, BC ==
[~2017-11-14] VITALS: Ht 162.6 cm; Wt 113.4 kg
--- NOTE | ~2017-11-14 | HC ---
[facility] [place] [address] CONSULTATION Name: KAR LOWRY Kash Room #: 359-P [facility] IN M.R.#: [id number] Admission: 11/14/17 Attend Phys: Mahin Young MD Discharge: Date of : 66 Report #: [id number] THIS REPORT FOR: //name// CC: Xuan Young DATE OF SERVICE: 11/14/2017 REASON FOR CONSULTATION: Chest pain. HISTORY OF PRESENT ILLNESS: This is a very pleasant 47-year-old female patient, well known to me, with significant pulmonary hypertension and prior episodes of chest discomfort, presented for an unusual sensation in her abdomen and lower central chest. The patient did undergo full evaluation, treatment plan and delineation at [facility] last year for her pulmonary hypertension and seems to be doing fairly well. She states that over the last couple of weeks, she has had issues with just an unusual fullness or distention in her abdominal cavity and yesterday it raised up to the epigastric and lower sternal region and brought her significant concern. The patient also states her bowel habits have been completely different recently, having been regularly going for bowel movements 3 times a day. She has been not having much of any recently. She denies any exertional component to the discomfort. She does not know what brings it on, it is random, until yesterday when it was most of the day. Her initial cardiac enzymes were negative. No palpitations, syncope or near syncope. No exertional tightness, heaviness or fullness as described by the patient. PAST MEDICAL HISTORY: Significant for: 1. Chronic kidney disease, having had dialysis in the past plus status post transplant. 2. Hypertension. 3. Degenerative joint disease. 4. COPD. 5. Pulmonary hypertension. 6. Gastroesophageal reflux disease. 7. Morbid obesity. 8. Diabetes mellitus. 9. Sleep apnea syndrome, currently on CPAP. PAST SURGICAL HISTORY: Significant for: 1. Right breast cyst removal. 2. Right kidney transplant. 3. RT VATS with lung biopsy. 4. Laparoscopic cholecystectomy. MEDICATIONS: DuoNeb, prednisone, losartan, Pulmicort, guaifenesin, carvedilol, [facility] [address] [place] [address] CONSULTATION Name: KAR LOWRY Kash Room #: 359-P [facility] IN ..#: [id number] Admission: 11/14/17 Attend Phys: Mahni Young MD Discharge: Date of : 66 Report #: [id number] famotidine, Myfortic, Prograf and insulin. ALLERGIES: No known drug allergies. SOCIAL HISTORY: The patient does not smoke, tries to follow a diabetic and fat-restricted diet. Does not exercise regularly. REVIEW OF SYSTEMS: Except for symptoms previously mentioned and those commensurate with comorbid state, the 10-point review of system is negative. Electrocardiogram demonstrates sinus rhythm with nonspecific ST-T wave changes noted in the inferior leads. LABORATORY DATA: Demonstrates a BNP of 620, which appears to be her baseline. Potassium 4.3, BUN and creatinine 26 and 1.3. H and H is 11.1 and 34.8. RADIOLOGIC: No acute findings are noted on chest x-ray, although some patchy opacities may be seen. PHYSICAL EXAMINATION: GENERAL: Well-developed, well-nourished, obese -[place]og[place]ese female, resting comfortably in no acute distress. HEENT: Normocephalic, atraumatic. Pupils are equal, round, reactive to light and accommodation. Extraocular muscles are intact. Sclerae and conjunctivae are anicteric. NECK: JVD is normal. Carotid upstrokes are bilaterally symmetrical. No bruits are heard. No thyromegaly. No lymphadenopathy. LUNGS: Clear to auscultation. No wheezes, rhonchi or crackles. No CVA tenderness. CARDIAC: Demonstrates a regular rhythm. Normal first and second heart sounds. Soft systolic murmur is noted with accentuation of the second heart tone. ABDOMEN: Soft, nontender, nondistended. Normal bowel sounds. EXTREMITIES: Demonstrates moderate pitting edema to the knees bilaterally. NEUROLOGIC: Cranial nerves 2-12 are grossly normal and symmetrical. PSYCHIATRIC: Alert, oriented with normal affect. SKIN: Warm and dry. IMPRESSION: 1. Abdominal and chest discomfort, very atypical in nature. Enzymes are negative. I am going to just monitor closely her enzymes. If they do not rise, then we will hold off on any major cardiovascular workup until the GI and Pulmonary can clear their organ systems. But if the enzymes rise, then we will proceed more aggressively and invasively. We will get the reports of catheterization that was done last year at , so we can further supplement her current medical records obtained here in the hospital. 2. Diabetes mellitus as per primary care. [address] [address] CONSULTATION Name: KAR LOWRY Room #: 359-P [facility] IN M.R.#: [id number] Admission: 11/14/17 Attend Phys: Mahin Young MD Discharge: Date of : 66 Report #: [id number] 3. Pulmonary hypertension seems to be monitored well with the plans from the [facility] in ways to support as she is now. 4. Sleep apnea syndrome, on CPAP. Finally, she is being treated and she is following instructions. 5. Morbid obesity, unchanged. 6. Hypertension. We will monitor blood pressures. Also, careful to make sure that we are not dealing with spikes in blood pressure that may create increase cardiac work load and some discomfort in case it is from a cardiovascular origin. <ELECTRONICALLY SIGNED> By: Abner Harris MD 11/16/17 1257 0847 1022 Abner Harris MD /nt
--- NOTE | ~2017-11-14 | 2DMMODE ---
[facility] [address] [place] [address] 2 D/M-MODE ECHOCARDIOGRAM Name: ALENKAR L Room #: 359-P [facility] IN [facility]#: [id number] Admission: 11/14/17 Attend Phys: Mahin Young MD Discharge: Date of : 66 Date of Service: 11/15/17 0926 Report #: [id number] THIS REPORT FOR: //name// APPROVED REPORT Study performed: 11/15/2017 07:57:40 EXAM: Comprehensive 2D, Doppler, and color-flow Echocardiogram Patient Location: In-Patient Room #: 359 Status: routine BSA: 2.15 BP: 111/61 mmHg Other Information Study Quality: Adequate/Technically Difficult Technically limited study due to body habitus. Indications Congestive Heart Failure COPD Diabetes Chest Pain Hypertension/HDD 2D Dimensions RVDd: 30.68 mm IVSd: 11.32 (7-11mm) LVOT Diam: 19.97 (18-24mm) LVDd: 43.12 mm PWd: 10.30 (7-11mm) Ascending Ao: 27.40 (22-36mm) LVDs: 25.34 (25-40mm) Aortic Root: 24.61 mm IVC: 23.00 mm Volumes Left Atrial Volume (Systole) Single Plane 4CH: 61.90 mL Single Plane 2CH: 52.62 mL LA ESV Index: 31.00 mL/m2 Aortic Valve AoV Peak Rodolfo.: 2.52 m/s AO Peak Gr.: 25.35 mmHg LVOT Max P.82 mmHg AO Mean Gr.: 11.50 mmHg LVOT Mean P.20 mmHg AO V2 Mean: 1.55 m/s LVOT Max V: 1.64 m/s [facility] [address] [address] 2 D/M-MODE ECHOCARDIOGRAM Name: KAR LOWRY Room #: 359-P [facility] IN ..#: [id number] Admission: 11/14/17 Attend Phys: Mahin Young MD Discharge: Date of : 66 Date of Service: 11/15/17 0926 Report #: [id number] AO V2 VTI: 55.06 cm LVOT Mean V: 1.04 m/s MADELEINE (VTI): 2.18 cm2 LVOT V1 VTI: 38.27 cm MADELEINE Vmax: 2.05 cm2 SV (LVOT): 119.84 mL Mitral Valve E/A Ratio: 2.0 MV Decel. Time: 187.31 ms MV E Max Rodolfo.: 1.50 m/s MV A Rodolfo.: 0.74 m/s MV PHT: 54.32 ms IVRT: 44.98 ms Pulmonary Valve PV Peak Rodolfo.: 1.42 m/s PV Peak Gr.: 8.09 mmHg Pulmonary Vein P Vein S: 0.46 m/s P Vein A: 0.18 m/s P Vein D: 0.91 m/s P Vein A Dur.: 114.2 msec P Vein S/D Ratio: 0.51 Tricuspid Valve TR Peak Rodolfo.: 2.87 m/s RAP Estimate: 10.00 mmHg TR Peak Gr.: 32.94 mmHg PA Pressure: 43.00 mmHg Left Ventricle The left ventricle is normal size. There is normal left ventricular wall thickness. The left ventricular systolic function is normal. The left ventricular ejection fraction is within the normal range. LVEF is 60-65%. Grade II - pseudonormal filling dynamics. Right Ventricle The right ventricle is normal size. The right ventricular systolic function is normal. Atria The left atrium size is normal. The right atrium size is normal. Aortic Valve The aortic valve is not well visualized. No aortic regurgitation is present. There is no aortic valvular stenosis. Mitral Valve The mitral valve is normal in structure. There is [place] [address] 2 D/M-MODE ECHOCARDIOGRAM Name: ALENKAR Kash Room #: 359-P [facility] IN ..#: [id number] Admission: 11/14/17 Attend Phys: Mahin Young MD Discharge: Date of : 66 Date of Service: 11/15/17 0926 Report #: [id number] regurgitation noted. No evidence of mitral valve stenosis. Tricuspid Valve The tricuspid valve is normal in structure. Trace tricuspid regurgitation. PAP is estimated at 44 mmHg. Pulmonic Valve Pulmonic valve is not well visualized. Great Vessels The aortic root is normal in size. IVC is dilated and collapses >50% with inspiration. Pericardium There is no pericardial effusion. <Conclusion> The left ventricle is normal size. There is normal left ventricular wall thickness. The left ventricular systolic function is normal. Grade II - pseudonormal filling dynamics. The right ventricle is normal size. The left atrium size is normal. The right atrium size is normal. The aortic valve is not well visualized. There is no aortic valvular stenosis. There is no mitral valve regurgitation noted. Trace tricuspid regurgitation. PAP is estimated at 44 mmHg. <ELECTRONICALLY SIGNED> By: Rodolfo Katz MD 11/15/17925 5 5 Rodolfo Katz MD /INF
--- NOTE | ~2017-11-14 | EKG ---
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
[2017-11-14 12:34] VITALS: BP 135/68
[2017-11-14 13:01] LABS: HEMATOCRIT 34.8 % (37.0-47.0); HEMOGLOBIN 11.1 gm/dL (12.0-15.0); MCH 27.1 pg (26.0-34.0); MCHC 31.8 g/dL (28.0-37.0); MCV 85.3 fL (80.0-100.0); PLATELET COUNT 164 thou/uL (150-400); RBC 4.09 mil/uL (4.20-5.00); RDW 17.5 % (10.5-14.5); WBC 9.3 thou/uL (4.0-11.0)
[2017-11-14 13:12] LABS: ANION GAP 4 mmol/L (7-16); BUN 26 mg/dL (7-18); CALCIUM 9.6 mg/dL (8.5-10.1); CHLORIDE 104 mmol/L (98-107); CO2 32 mmol/L (21-32); CREATININE 1.3 mg/dL (0.6-1.0); GLUCOSE 166 mg/dL (74-106); POTASSIUM 4.3 mmol/L (3.5-5.1); SODIUM 140 mmol/L (136-145)
[2017-11-14 13:18] LABS: ABSOLUTE NEUTROPHILS 7.9 thou/uL (1.4-8.2); METAMYELOCYTES 2 %; PLATELET ESTIMATE NORMAL
[2017-11-14 13:21] LABS: ALBUMIN 3.7 g/dL (3.4-5.0); SGOT 26 U/L (15-37); SGPT 27 U/L (30-65); TOTAL BILIRUBIN 0.5 mg/dL (<0.1-1.0); TOTAL PROTEIN 7.3 g/dL (6.4-8.2); TROPONIN-I <0.06 ng/mL (<0.06)
[2017-11-14 14:41] VITALS: BP 139/69
[2017-11-14 14:44] VITALS: BP 187/108
[2017-11-14] MEDS ORDERED: SPIRONOLACTONE25 M1 PO (16:06)
[2017-11-14 20:00] VITALS: BP 109/61
[2017-11-14 23:20] VITALS: BP 114/66
[2017-11-15 04:20] VITALS: BP 111/61
[2017-11-15 07:28] VITALS: BP 111/64
[2017-11-15 13:14] LABS: HEMATOCRIT 33.3 % (37.0-47.0); HEMOGLOBIN 10.4 gm/dL (12.0-15.0); MCH 26.8 pg (26.0-34.0); MCHC 31.3 g/dL (28.0-37.0); MCV 85.7 fL (80.0-100.0); PLATELET COUNT 149 thou/uL (150-400); RBC 3.88 mil/uL (4.20-5.00); WBC 7.5 thou/uL (4.0-11.0)
[2017-11-15 13:30] LABS: ALBUMIN 3.4 g/dL (3.4-5.0); CALCIUM 9.2 mg/dL (8.5-10.1); CREATININE 1.3 mg/dL (0.6-1.0); TOTAL BILIRUBIN 0.6 mg/dL (<0.1-1.0); TOTAL PROTEIN 6.6 g/dL (6.4-8.2)
[2017-11-15 13:36] LABS: ABSOLUTE NEUTROPHILS 6.5 thou/uL (1.4-8.2); NUCLEATED RBCS 1 /100WBC; PLATELET ESTIMATE NORMAL
[2017-11-15 16:17] VITALS: BP 99/51
[2017-11-15 19:29] VITALS: BP 119/68
[2017-11-16 03:45] VITALS: BP 129/78
[2017-11-16 07:24] LABS: HEMATOCRIT 32.2 % (37.0-47.0); HEMOGLOBIN 10.4 gm/dL (12.0-15.0); MCH 27.6 pg (26.0-34.0); MCHC 32.3 g/dL (28.0-37.0); MCV 85.4 fL (80.0-100.0); PLATELET COUNT 137 thou/uL (150-400); RBC 3.77 mil/uL (4.20-5.00); WBC 8.7 thou/uL (4.0-11.0)
[2017-11-16 07:30] LABS: CALCIUM 9.6 mg/dL (8.5-10.1); POTASSIUM 4.7 mmol/L (3.5-5.1)
[2017-11-16 07:55] VITALS: BP 112/73
[2017-11-16 08:21] LABS: ABSOLUTE NEUTROPHILS 6.9 thou/uL (1.4-8.2); ANISOCYTOSIS 1+
[2017-11-16 08:49] LABS: % SATURATION 17 % (20-39); IRON 53 ug/dL (50-170); TIBC 304 ug/dL (250-450)
[2017-11-16] MEDS ORDERED: REGLAN 10 MG TA10 MG PO (13:23)
[2017-11-16 13:35] VITALS: BP 112/73
== END 2017-11-16 15:01 | disposition home or self-care (01) | DRG 73 ==
LOC: ER 12:28 → 3W 14:11 → EROBS 14:11 → 3W 15:25 → ENTRNSPT 11-16 14:53 → EDTRNSPTSTS 11-16 14:54 → 3W 11-16 15:01
PROVIDERS: Hospitalist; Internal Medicine Gastroenterology; Student in an Organized Health Care Education/Training Program
DX: E11.43 Type 2 diabetes mellitus with diabetic autonomic (poly)neuropathy (principal); N17.0 Acute kidney failure with tubular necrosis; Z94.0 Kidney transplant status; Z68.41 Body mass index [BMI] 40.0-44.9, adult; I12.0 Hypertensive chronic kidney disease with stage 5 chronic kidney disease or end stage renal disease; R07.89 Other chest pain; M19.90 Unspecified osteoarthritis, unspecified site; J44.9 Chronic obstructive pulmonary disease, unspecified; K21.9 Gastro-esophageal reflux disease without esophagitis; E66.9 Obesity, unspecified; I27.20 Pulmonary hypertension, unspecified; N18.9 Chronic kidney disease, unspecified; E11.22 Type 2 diabetes mellitus with diabetic chronic kidney disease; E66.01 Morbid (severe) obesity due to excess calories; M06.9 Rheumatoid arthritis, unspecified; D64.9 Anemia, unspecified; K31.84 Gastroparesis; Z90.710 Acquired absence of both cervix and uterus; Z90.49 Acquired absence of other specified parts of digestive tract; Z82.49 Family history of ischemic heart disease and other diseases of the circulatory system; Z23 Encounter for immunization; Z83.3 Family history of diabetes mellitus
CPT/HCPCS: 10879

== ENCOUNTER 2018-11-18 11:45 | Emergency (ER) | payer OTHER, BC ==
[~2018-11-18] VITALS: Ht 160 cm; Wt 99.8 kg
[~2018-11-18 11:45] MED LIST changes: +REGLAN 10 MG TA10 MG PO; +SPIRONOLACTONE25 M1 PO
[2018-11-18] MEDS ORDERED: NORCO 5-325 TA1 EAC1 PO (14:09)
[2018-11-18 14:13] VITALS: BP 123/70
== END 2018-11-18 14:25 | disposition home or self-care (01) ==
LOC: ER 11:45
DX: S86.012A Strain of left Achilles tendon, initial encounter (principal); M19.90 Unspecified osteoarthritis, unspecified site; J44.9 Chronic obstructive pulmonary disease, unspecified; I12.0 Hypertensive chronic kidney disease with stage 5 chronic kidney disease or end stage renal disease; E11.22 Type 2 diabetes mellitus with diabetic chronic kidney disease; N18.6 End stage renal disease; G47.30 Sleep apnea, unspecified; E66.9 Obesity, unspecified; Z87.01 Personal history of pneumonia (recurrent); Z90.710 Acquired absence of both cervix and uterus; Z68.39 Body mass index [BMI] 39.0-39.9, adult; Z90.49 Acquired absence of other specified parts of digestive tract; Z99.2 Dependence on renal dialysis; W18.39XA Other fall on same level, initial encounter; Y93.89 Activity, other specified; Y92.89 Other specified places as the place of occurrence of the external cause; Y99.8 Other external cause status

== ENCOUNTER 2019-01-16 11:27 | Emergency (ER) | payer OTHER, BC ==
[~2019-01-16] VITALS: Ht 162.6 cm; Wt 108.0 kg
[~2019-01-16 11:27] MED LIST changes: +NORCO 5-325 TA1 EAC1 PO
[2019-01-16 12:19] LABS: HEMATOCRIT 33.4 % (37.0-47.0); HEMOGLOBIN 10.6 gm/dL (12.0-15.0); MCH 28.2 pg (26.0-34.0); MCHC 31.8 g/dL (28.0-37.0); MCV 88.6 fL (80.0-100.0); PLATELET COUNT 192 thou/uL (150-400); RBC 3.77 mil/uL (4.20-5.00); RDW 14.4 % (10.5-14.5); WBC 8.5 thou/uL (4.0-11.0)
[2019-01-16 12:24] LABS: ANION GAP 6 mmol/L (7-16); BUN 36 mg/dL (7-18); CALCIUM 9.8 mg/dL (8.5-10.1); CHLORIDE 103 mmol/L (98-107); CO2 32 mmol/L (21-32); CREATININE 1.6 mg/dL (0.6-1.0); GLUCOSE 188 mg/dL (74-106); POTASSIUM 4.1 mmol/L (3.5-5.1); SODIUM 141 mmol/L (136-145)
[2019-01-16] MEDS ORDERED: ASA81BEC PO (12:33)
[2019-01-16 12:34] LABS: ALBUMIN 3.3 g/dL (3.4-5.0); SGOT 19 U/L (15-37); SGPT 21 U/L (30-65); TOTAL BILIRUBIN 0.4 mg/dL (<0.1-1.0); TOTAL PROTEIN 6.6 g/dL (6.4-8.2); TROPONIN-I <0.06 ng/mL (<0.06)
[2019-01-16 13:42] LABS: ABSOLUTE NEUTROPHILS 6.3 thou/uL (1.4-8.2); METAMYELOCYTES 2 %
[2019-01-16 13:43] LABS: ANISOCYTOSIS 1+; OVALOCYTES FEW
[2019-01-16] MEDS ORDERED: MOBIC7.5 MG PO (13:58)
[2019-01-16] MEDS ORDERED: NORFLEX100 MG PO (13:58)
[2019-01-16] MEDS ORDERED: LIDODERM1 EACH TOP (14:03)
[2019-01-16 14:09] VITALS: BP 127/72
--- NOTE | 2019-01-17 12:59 | EKG ---
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: ROLANDO : 1970 Requested By: Analisa Potts Order Number: [id number] MD: Jonah Scruggs Measurements Intervals [place] Rate: 64 P: 22 CO: 119 QRS: 16 QRSD: 104 T: -21 QT: 398 QTc: 411 Interpretive Statements Sinus arrhythmia Nonspecific T wave abnormality Compared to ECG 11/14/2017 12:35:29 No significant change was found Electronically Signed On 01-17-2019 12:58:51 COMPLIANCE ENGINEER by Jonah Scruggs [email or web address] <ELECTRONICALLY SIGNED> By: Jonah Scruggs MD, [facility] 01/17/19 1258 1143 1143 Jonah Scruggs MD, FACC /EPI
== END 2019-01-16 14:18 | disposition home or self-care (01) ==
LOC: ER 11:27
PROVIDERS: Nurse Practitioner Family
DX: M54.6 Pain in thoracic spine (principal); R07.89 Other chest pain; I10 Essential (primary) hypertension; M19.90 Unspecified osteoarthritis, unspecified site; J44.9 Chronic obstructive pulmonary disease, unspecified; K21.9 Gastro-esophageal reflux disease without esophagitis; E11.9 Type 2 diabetes mellitus without complications; E66.9 Obesity, unspecified; Z79.899 Other long term (current) drug therapy; Z79.82 Long term (current) use of aspirin; Z79.4 Long term (current) use of insulin; Z90.49 Acquired absence of other specified parts of digestive tract; Z98.890 Other specified postprocedural states

== ENCOUNTER 2019-03-13 10:20 | Inpatient (IN) | payer OTHER, BC ==
[~2019-03-13] VITALS: Ht 162.6 cm; Wt 106.6 kg
[~2019-03-13 10:20] MED LIST changes: +ASA81BEC PO; +LIDODERM1 EACH TOP; +MOBIC7.5 MG PO; +NORFLEX100 MG PO
[2019-03-13 10:21] VITALS: BP 134/80
[2019-03-13] MEDS ORDERED: KEFLEX500 M1 PO (11:21)
[2019-03-13 12:07] LABS: HEMOGLOBIN 10.3 gm/dL (12.0-15.0); WBC 9.6 thou/uL (4.0-11.0)
[2019-03-13 12:07] LABS: CREATININE 1.1 mg/dL (0.6-1.0); POTASSIUM 4.4 mmol/L (3.5-5.1)
[2019-03-13 12:10] LABS: MCH 27.4 pg (26.0-34.0); MCHC 31.2 g/dL (28.0-37.0); PLATELET COUNT 177 thou/uL (150-400); RBC 3.75 mil/uL (4.20-5.00); RDW 14.3 % (10.5-14.5)
[2019-03-13 12:13] LABS: ALBUMIN 3.6 g/dL (3.4-5.0); TOTAL BILIRUBIN 0.9 mg/dL (<0.1-1.0); TOTAL PROTEIN 7.2 g/dL (6.4-8.2)
[2019-03-13 12:21] LABS: URIC ACID* 11.2 mg/dL (2.6-7.2)
[2019-03-13 12:46] LABS: ABSOLUTE NEUTROPHILS 7.2 thou/uL (1.4-8.2); METAMYELOCYTES 1 %; PLATELET ESTIMATE NORMAL
[2019-03-13 14:28] VITALS: BP 135/85
--- NOTE | 2019-03-13 14:31 | NUR ---
1430- 1ST ATTEMPT TO CALL REPORT
[2019-03-13 14:54] VITALS: BP 135/85
[2019-03-13 15:48] LABS: SOURCE SYNOVIAL
[2019-03-13 16:06] LABS: BF NUCLEATED CELLS 36385; BF RBC 7888
[2019-03-13 16:09] LABS: TOTAL VOLUME 9 mL
[2019-03-13 16:10] LABS: CLARITY CLOUDY; COLOR LIGHT YELLOW
[2019-03-13 16:36] VITALS: BP 153/82
[2019-03-13 16:51] LABS: BF MACROPHAGE 4; BF NEUTROPHILS 91
[2019-03-13 19:11] VITALS: BP 133/71
--- NOTE | 2019-03-13 19:46 | NUR ---
pt admitted to 4w from ed. arrived to unit after having procedure in IR. drained fluid from right elbow. IV abx started. Admission assessments and history complete. pt on 2L NC, which she wears at home. Accucheck achs. PRN pain medication given as per apr. Fall precautions in place.
--- NOTE | 2019-03-14 04:38 | NUR ---
PT AOX4. PT REPORTS 10/10 PAIN IN RIGHT ARM. PT HAS POSITIVE SENSORY PERCEPTION IN ALL EXTREMITIES. PT NOTED TO HAVE LIMITED ROM IN RIGHT ARM DUE TO PAIN. PT AMBULATES INDEPENDENTLY WITH STANDBY ASSIST WITH BOOT TO LLE. PT RECEIVING PRN PO OXYCODONE Q4HR AND PRN IV DILAUDID Q4HR. PT TOLERATING PO INTAKE WITHOUT ISSUE. ENCOURAGED PT TO NOTIFY STAFF FOR ALL NEEDS. CALL LIGHT WITHIN REACH, BED IN LOWEST POSITION, BED ALARM ON. WILL CONTINUE TO MONITOR.
[2019-03-14 07:38] VITALS: BP 132/55
--- NOTE | 2019-03-14 11:33 | NUR ---
Received awake on bed. Due medications given as prescribed, able to swallow meds w/o difficulty. A+Ox4. With O2 at 2lpm via nasal cannula- pt's baseline as per night clerk auditor nurse. Vital signs stable. On heart healthy diet; tolerating well- no nausea, no vomiting and no abdominal pain noted. On blood sugar monitoring- taken and recorded accordingly; with sliding scale insulin prescribed. With dialysis fistula at L arm- no dialysis schedule, pt had kidney transplant- on L limb alert. With SL at R FA and R hand- intact, on IV antibiotics. With pain at R elbow to R upper arm- Dr Simpson informed to modify pain medications as oral Oxycodone does not help with the pain as per patient and IV Dilauded makes her super grogy- Dr Simpson aware and will modify meds- pt informed. Assisted in ADLs. Falls bundle in place. Complained of pain, due PRN Morphine given as prescribed as well as onetime IV steriods.
--- NOTE | 2019-03-14 13:01 | NUR ---
PT ADMITTED RELATED TO ELBOW ERYTHEMA, R/O SEPTICE JOINT VS GOUT. CM MET WITH PT AT BEDSIDE THIS DAY. PT IS A&O X4. CM ROLE INTRODUCED. PT IS A&O X4. CM ROLE INTRODUCED. PT INDICATED SHE LIVES IN A HOUSE WITH HER MOTHER. PT INDICATED THERE ARE 7 STEPS TO ENTER AND 6 STEPS INSIDE. 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 PT INDICATED SHE HAS HOME O2 AND HAD WORN 2L CONT. WATER QUALITY SPECIALIST AND A CPAP. PT INDICATED SHE PLANS TO RETURN HOME ONCE MEDICALLY STABLE. CM TO FOLLOW INDICATED WITH DC PLANNING. CARE TEAM INDICATED THAT PT WOULD BE HERE OVER THE WEEKEND.
[2019-03-14 14:57] VITALS: BP 121/59
[2019-03-14 19:33] VITALS: BP 116/60
--- NOTE | 2019-03-15 05:26 | NUR ---
Pt. rested quietly during the night when checked on during frequent rounds. Right elbow is swollen, but pt. denied any c/o pain upon assessment. Up to the bathroom with assistance. No c/o any shortness of air. Bed alarm is on.
[2019-03-15 06:22] LABS: ALBUMIN 2.9 g/dL (3.4-5.0); CALCIUM 9.1 mg/dL (8.5-10.1); CREATININE 1.7 mg/dL (0.6-1.0); PHOSPHORUS 3.6 mg/dL (2.5-4.9); POTASSIUM 4.9 mmol/L (3.5-5.1)
[2019-03-15 07:31] VITALS: BP 148/73
--- NOTE | 2019-03-15 09:56 | NUR ---
Received awake on bed. Due medications given as prescribed, able to swallow meds w/o diffculty. A+Ox4. On O2 at 2lpm via nasal cannula. On heart healthy diet- tolerating well; no nausea, no vomiting and no abdominal pain noted. With L arm fistula- not having dialysis anymore, post transplant 2007; with SL at R hand and R FA. With Lt leg immobilizer. Complained of pain, due PRN pain medications given as prescribed. Continent of B/B. Assisted in ADLs due to pain at R elbow. Vital signs stable. On blood sugar monitoring- taken and recorded accordingly, with sliding scale insulin given as prescribed. Able to use bedside commode with standby assist.
[2019-03-15 14:43] VITALS: BP 121/53
[2019-03-15 19:13] VITALS: BP 120/61
--- NOTE | 2019-03-16 04:08 | NUR ---
Pt. rested quietly at intervals during the night when checked on during frequent rounds. Po pain pill given (see emar) for c/o pain to her right elbow with some relief noted.
[2019-03-16 05:42] LABS: HEMATOCRIT 33.2 % (37.0-47.0); MCH 26.8 pg (26.0-34.0); MCHC 30.2 g/dL (28.0-37.0); MCV 88.8 fL (80.0-100.0); RBC 3.74 mil/uL (4.20-5.00); RDW 14.6 % (10.5-14.5); WBC 9.3 thou/uL (4.0-11.0)
[2019-03-16 06:09] LABS: ALBUMIN 2.9 g/dL (3.4-5.0); CALCIUM 9.5 mg/dL (8.5-10.1); CREATININE 1.5 mg/dL (0.6-1.0); PHOSPHORUS 3.4 mg/dL (2.5-4.9); POTASSIUM 5.1 mmol/L (3.5-5.1)
[2019-03-16 08:00] VITALS: BP 159/78
[2019-03-16] MEDS ORDERED: HYDROCODON-ACE1 EAC7 PO (11:59)
[2019-03-16] MEDS ORDERED: HUMALOG100 UNIT/1 SUBQ (11:59)
[2019-03-16] MEDS ORDERED: COLCHICINE0.6 M1 PO (15:15)
[2019-03-16] MEDS ORDERED: PREDNISONE 20 M20 M1 PO (15:15)
[2019-03-16 15:27] VITALS: BP 159/78
--- NOTE | 2019-03-16 16:39 | NUR ---
PT A&OX4, VSS, PAIN IN RIGHT ELBOW. PAIN MEDICATION GIVEN. NO SIGNS OF DISTRESS. ALL BELONGINGS WITH PATIENT. IV FROM RFA AND RIGHT HAND REMOVED. PATIENT DISCHARGED HOME.
--- NOTE | 2019-03-17 07:22 | HC ---
[facility] [place] [address] CONSULTATION Name: KAR LOWRY Room #: 452-P [facility] IN ..#: [id number] Admission: 03/13/19 Attend Phys: Marija Simpson MD Discharge: 03/16/19 Date of : 66 Report #: [id number] THIS REPORT FOR: //name// CC: Marija Camejo DATE OF SERVICE: 03/16/2019 INFECTIOUS DISEASE CONSULTATION ATTENDING PHYSICIAN: Dr. Marija Simpson. REASON FOR EVALUATION: Right elbow inflammatory process, concern about superficial cellulitis or perhaps septic arthritis. HISTORY OF PRESENT ILLNESS: Chart reviewed, the patient examined. This is a 48-year-old woman with history of diabetes mellitus, hypertension, has had end-stage renal disease with previous kidney transplantation. She is on combination immunosuppressive therapy; who awoke out of sleep with complaints of right elbow pain; this became quite severe. She is unaware of any antecedent injury. She had some mild swelling that she describes. Denied significant evidence of fevers or chills. No pulmonary or gastrointestinal related complaints. She underwent evaluation for arthrocentesis, returned 9 mL of cloudy yellow fluid with a white count of 36,385, 91% neutrophils; is confirmed to have positive monosodium urate crystals. She actually notes that she has had quite a bit of improvement thus far. Blood cultures are sterile thus far. CURRENT MEDICINES: Include colchicine, prednisone; had not been on any antibiotics; hydrocodone, aspirin, spironolactone, mycophenolate, losartan, pantoprazole, tacrolimus, ipratropium albuterol inhaler, furosemide, carvedilol, lispro. ALLERGIES: None. PAST MEDICAL AND SURGICAL HISTORY: As described above; diabetes mellitus, history of hypertension; end-stage renal disease, right kidney transplant; sleep apnea, reflux, arthritis, hyperlipidemia, COPD, normally on 3 liters nasal cannula, previous cholecystectomy and hysterectomy. SOCIAL HISTORY: Nonsmoker, no ethanol, no illicit drug use. FAMILY HISTORY: Noncontributory. REVIEW OF SYSTEMS: Otherwise, 10-point review of systems is otherwise unremarkable. [facility] [address] [place] [address] CONSULTATION Name: KAR LOWRY Kash Room #: 452-P [facility] [id number] Admission: 03/13/19 Attend Phys: Marija Simpson MD Discharge: 03/16/19 Date of : 66 Report #: [id number] PHYSICAL EXAMINATION: GENERAL: She is alert and cooperative, appropriate. She is in mild distress. She is lucid, reasonably well nourished. VITAL SIGNS: Temperature 97.8, pulse 74, respirations 18, blood pressure 120/61. SKIN: Warm, dry. No rashes. HEENT: Otherwise unremarkable. Normocephalic. Extraocular muscles intact. NECK: Supple. LUNGS: Generally clear to auscultation. HEART: Regular. I do not appreciate murmur. ABDOMEN: Soft, nontender, nondistended. GENITOURINARY AND RECTAL: Deferred. LABORATORY DATA: Most recent studies today; sodium 138, potassium 5.1, chloride 102, bicarbonate is 32, anion gap of 4, BUN and creatinine 47 and 1.5, albumin of 2.9. CBC; white count of 39.3, H and H 10.0 and 33.2, platelets of 203. Joint fluid was sterile thus far. Blood cultures sterile. IMAGING: MRI of the elbow showed elbow joint effusion, periarticular muscle edema and nonspecific cellulitis. ASSESSMENT AND PLAN: Right elbow gouty arthritis. At this point, I do not see evidence of a complicating skin and soft tissue infection and/or septic arthritis. It is reasonable to pursue watchful waiting off the antibiotics, see how she does; seemingly is better on the colchicine, prednisone combination. We will be available as needed. <ELECTRONICALLY SIGNED> By: Faustino David MD 03/17/19 [phone] [id number] Faustino David MD /nt
--- NOTE | 2019-03-18 08:19 | HC ---
[facility] [place] [address] CONSULTATION Name: KAR LOWRY Room #: 452-P [facility] IN ..#: [id number] Admission: 03/13/19 Attend Phys: Marija Simpson MD Discharge: 03/16/19 Date of : 66 Report #: [id number] THIS REPORT FOR: //name// CC: Marija Camejo REASON FOR CONSULTATION: Right elbow pain and swelling. HISTORY OF PRESENT ILLNESS: This is a very well-known patient to me. She is a 48-year-old with past medical history of renal transplantation. She is seeing Dr. Palacio in our clinic. She is maintained on triple immunosuppression medications. She had received a donor kidney transplant in 2006. She has had a stable kidney function for years with baseline creatinine of around 1.0. She has had a very complicated hospital courses in the last couple of years with repeated episodes of respiratory tract infections and respiratory failure. Numerous investigations have been done for the patient and she was ruled out for all opportunistic infections. She has had lung biopsies in the past. The patient presented with right-sided elbow swelling, pain, redness since Sunday. Aspiration of the joint was done. The patient was admitted to further evaluate. She visited with an urgent care center and was started on Keflex and [place] without any improvement of her symptoms. When the patient presented to the Emergency Room yesterday, her creatinine was about her baseline. Elbow x-ray was done and was suggestive of an effusion. The patient was admitted to further evaluate and orthopedic consultation has been obtained. I was asked to evaluate the patient and address her renal transplant status. PAST MEDICAL HISTORY: 1. Status post renal transplantation in 2006. 2. COPD, maintained on oxygen at home. 3. Obstructive sleep apnea. 4. Diabetes mellitus. 5. Remote history of hemodialysis. 6. Right breast cyst removal. 7. Hysterectomy. 8. Right VATS procedure with lung biopsy. 9. Laparoscopic cholecystectomy. 10. Repeated hospitalizations for pulmonary symptoms and other opportunistic infections. REVIEW OF SYSTEMS: GENERAL: Significant for no fever or chills. CARDIOVASCULAR: No chest pain or palpitation. PULMONARY: She is maintained on chronic oxygen. GASTROINTESTINAL: No nausea or vomiting. GENITOURINARY: No frequency. No urgency. MUSCULOSKELETAL: As per the history of present illness. NEUROLOGICAL: No weakness. No headache. [address] [address] CONSULTATION Name: KAR LOWRY Kash Room #: 452-P [facility] IN ..#: [id number] Admission: 03/13/19 Attend Phys: Marija Simpson MD Discharge: 03/16/19 Date of : 66 Report #: [id number] SKIN: Erythema around the right elbow ALLERGIES: PEACH. MEDICATIONS: 1. Cephalexin. 2. Carvedilol. 3. Losartan. 4. Spironolactone. 5. Prednisone. 6. Mycophenolate. 7. Tacrolimus. FAMILY HISTORY: Significant for hypertension and diabetes mellitus. PHYSICAL EXAMINATION: GENERAL: She is alert, oriented, seems to be bothered by her right elbow pain. VITAL SIGNS: Temperature 37.4, blood pressure 132/55, pulse rate is 76, respiratory rate is 13. HEAD AND NECK: No jugular venous distention. CHEST: Limited air entry bilaterally with occasional wheezes. CARDIOVASCULAR: No rub. Distant S1 and S2. ABDOMEN: Soft, nontender. EXTREMITIES: Lower extremities, no edema. Upper extremity is significantly erythematous and swollen right elbow. IMPRESSION AND PLAN: 1. Inflammatory right elbow pain. 2. Status post renal transplantation. 3. Hypertension. 4. Diabetes mellitus. 5. Chronic obstructive pulmonary disease with obstructive sleep apnea. 6. The patient is stable from the kidney side. Continue with the current immunosuppressive medications. 7. She has a significantly swollen right elbow, status post arthrocentesis, studies are pending. We will check uric acid level. 8. Continue with the empiric antibiotic coverage for now. 9. Obtain an ID consultation. 10. Follow the arthrocentesis fluid studies to decide if this is of infectious etiology versus uric acid related. She is currently maintained on prednisone and if this is an inflammatory condition, this should improve with utilization [address] [place] [address] CONSULTATION Name: KAR LOWRY Kash Room #: 452-P [facility] IN M.R.#: [id number] Admission: 03/13/19 Attend Phys: Marija Simpson MD Discharge: 03/16/19 Date of : 66 Report #: [id number] of the prednisone. If this is of infectious etiology, we will have to address accordingly. <ELECTRONICALLY SIGNED> By: Freddy Duffy MD 03/18/19 0819 0846 1032 Freddy Duffy MD /nt
== END 2019-03-16 16:45 | disposition home or self-care (01) | DRG 553 ==
LOC: ER 10:20 → EROBS 13:50 → 4W 13:50
PROVIDERS: Emergency Medicine; Hospitalist; Internal Medicine Nephrology; Physician Assistant; ADMIT Hospitalist
PROC: 0R9L3ZX Drainage of Right Elbow Joint, Percutaneous Approach, Diagnostic (ICD-10-PCS; principal; 2019-03-13)
DX: M10.9 Gout, unspecified (principal); N17.0 Acute kidney failure with tubular necrosis; L03.113 Cellulitis of right upper limb; Z94.0 Kidney transplant status; Z68.41 Body mass index [BMI] 40.0-44.9, adult; J96.11 Chronic respiratory failure with hypoxia; M10.021 Idiopathic gout, right elbow; I10 Essential (primary) hypertension; E11.9 Type 2 diabetes mellitus without complications; I27.20 Pulmonary hypertension, unspecified; K21.9 Gastro-esophageal reflux disease without esophagitis; G47.33 Obstructive sleep apnea (adult) (pediatric); E66.9 Obesity, unspecified; E78.5 Hyperlipidemia, unspecified; M19.90 Unspecified osteoarthritis, unspecified site; J44.9 Chronic obstructive pulmonary disease, unspecified; Z87.01 Personal history of pneumonia (recurrent); Z90.710 Acquired absence of both cervix and uterus; Z99.81 Dependence on supplemental oxygen; Z79.899 Other long term (current) drug therapy; Z79.82 Long term (current) use of aspirin; Z79.4 Long term (current) use of insulin; Z91.018 Allergy to other foods; Y83.8 Other surgical procedures as the cause of abnormal reaction of the patient, or of later complication, without mention of misadventure at the time of the procedure; Y92.89 Other specified places as the place of occurrence of the external cause; Z90.49 Acquired absence of other specified parts of digestive tract; Z82.49 Family history of ischemic heart disease and other diseases of the circulatory system; Z83.3 Family history of diabetes mellitus; Z80.9 Family history of malignant neoplasm, unspecified
CPT/HCPCS: 10047

== ENCOUNTER 2019-10-16 11:48 | Emergency (ER) | payer OTHER, BC ==
[~2019-10-16] VITALS: Ht 162.6 cm; Wt 99.8 kg
[~2019-10-16 11:48] MED LIST changes: +COLCHICINE0.6 M1 PO; +HYDROCODON-ACE1 EAC7 PO; +KEFLEX500 M1 PO
[2019-10-16] MEDS ORDERED: PREDNISONE 10 M10 M1 PO (12:12)
[2019-10-16] MEDS ORDERED: ALLOPURINOL 30300 M1 PO (12:13)
[2019-10-16] MEDS ORDERED: ROSUVASTATIN CA10 MG PO (12:13)
[2019-10-16] MEDS ORDERED: NORCO 5-325 TA1 EAC2 PO (13:59)
[2019-10-16 14:11] VITALS: BP 133/65
== END 2019-10-16 14:11 | disposition home or self-care (01) ==
LOC: ER 11:48
DX: M25.562 Pain in left knee (principal); M19.90 Unspecified osteoarthritis, unspecified site; E11.9 Type 2 diabetes mellitus without complications; K21.9 Gastro-esophageal reflux disease without esophagitis; I10 Essential (primary) hypertension; E78.5 Hyperlipidemia, unspecified; J44.9 Chronic obstructive pulmonary disease, unspecified; E66.9 Obesity, unspecified; Z94.0 Kidney transplant status; Z90.711 Acquired absence of uterus with remaining cervical stump; Z90.49 Acquired absence of other specified parts of digestive tract; Z79.899 Other long term (current) drug therapy; Z79.4 Long term (current) use of insulin; Z79.82 Long term (current) use of aspirin; Z91.048 Other nonmedicinal substance allergy status

== ENCOUNTER → 2020-08-26 | Outpatient (CLI) | payer OTHER, BC ==
[~2020-08-26] MED LIST changes: +ALLOPURINOL 30300 M1 PO; +NORCO 5-325 TA1 EAC2 PO; +ROSUVASTATIN CA10 MG PO
== END ==
LOC: CAT 11:00
PROVIDERS: ATTEND Internal Medicine
DX: J84.9 Interstitial pulmonary disease, unspecified (principal); I25.10 Atherosclerotic heart disease of native coronary artery without angina pectoris; J98.4 Other disorders of lung; M25.78 Osteophyte, vertebrae; Z90.49 Acquired absence of other specified parts of digestive tract

== ENCOUNTER 2020-09-19 03:45 | Emergency (ER) | payer OTHER, BC ==
[~2020-09-19] VITALS: Ht 162.6 cm; Wt 107.0 kg
[2020-09-19 04:32] LABS: ABSOLUTE NEUTROPHILS 11.4 thou/uL (1.4-8.2); BASOPHILS 0.5 % (0.0-2.0); EOSINOPHILS 0.5 % (0.0-3.0); HEMATOCRIT 31.6 % (37.0-47.0); HEMOGLOBIN 9.8 gm/dL (12.0-15.0); LYMPHOCYTES 7.3 % (24.0-44.0); MCHC 30.9 g/dL (28.0-37.0); MCV 93.6 fL (80.0-100.0); MONOCYTES 10.8 % (1.0-8.0); PLATELET COUNT 170 thou/uL (150-400); POLYS 80.9 % (36.0-66.0); RBC 3.38 mil/uL (4.20-5.00); RDW 16.1 % (10.5-14.5); WBC 14.1 thou/uL (4.0-11.0)
[2020-09-19 04:36] LABS: ANION GAP 4 mmol/L (7-16); BUN 39 mg/dL (7-18); CALCIUM 9.5 mg/dL (8.5-10.1); CHLORIDE 107 mmol/L (98-107); CO2 33 mmol/L (21-32); CREATININE 1.6 mg/dL (0.6-1.0); GLUCOSE 97 mg/dL (74-106); POTASSIUM 4.6 mmol/L (3.5-5.1); SODIUM 144 mmol/L (136-145)
[2020-09-19 04:46] LABS: ALBUMIN 3.5 g/dL (3.4-5.0); SGOT 16 U/L (15-37); SGPT 18 U/L (30-65); TOTAL BILIRUBIN 0.5 mg/dL (0.2-1.0); TOTAL PROTEIN 6.9 g/dL (6.4-8.2); TROPONIN-I <0.06 ng/mL (<0.06)
[2020-09-19] MEDS ORDERED: MINOCYCLINE HC100 M2 PO (05:44)
[2020-09-19] MEDS ORDERED: FAMOTIDINE 10 M10 MG PO (06:14)
[2020-09-19 06:28] VITALS: BP 120/57
--- NOTE | 2020-09-19 09:23 | EKG ---
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: HILARIO : 1970 Requested By: Ajay Weinberg Order Number: [id number] MD: Sacha Salinas Measurements Intervals [place] Rate: 75 P: 22 DC: 128 QRS: 21 QRSD: 88 T: 17 QT: 373 QTc: 417 Interpretive Statements Sinus rhythm Atrial premature complex Low voltage, precordial leads Compared to ECG 01/16/2019 11:43:44 Atrial premature complex(es) now present Low QRS voltage now present Sinus arrhythmia no longer present T-wave abnormality no longer present Electronically Signed On 09-19-2020 9:22:59 CDT by Sacha Salinas [email or web address] <ELECTRONICALLY SIGNED> By: Sacha Salinas MD, [facility] 09/19/20921 0358 0358 Sacha Salinas MD, [facility] /EPI
== END 2020-09-19 06:34 | disposition home or self-care (01) ==
LOC: ER 03:45
PROVIDERS: Student in an Organized Health Care Education/Training Program
DX: R07.89 Other chest pain (principal); E78.9 Disorder of lipoprotein metabolism, unspecified; J44.9 Chronic obstructive pulmonary disease, unspecified; K21.9 Gastro-esophageal reflux disease without esophagitis; E11.22 Type 2 diabetes mellitus with diabetic chronic kidney disease; I12.0 Hypertensive chronic kidney disease with stage 5 chronic kidney disease or end stage renal disease; N18.6 End stage renal disease; Z20.822 Contact with and (suspected) exposure to COVID-19; Z94.0 Kidney transplant status; Z79.51 Long term (current) use of inhaled steroids; Z90.711 Acquired absence of uterus with remaining cervical stump; Z79.891 Long term (current) use of opiate analgesic; Z79.4 Long term (current) use of insulin; Z79.82 Long term (current) use of aspirin; Z79.899 Other long term (current) drug therapy; Z91.018 Allergy to other foods